=== PATIENT | male | born 1970 | race Caucasian/White ===

== ENCOUNTER 2019-01-29 17:02 | Inpatient (IN) ==
[2019-01-29] MEDS ORDERED: methylPREDNISolone 125 MG/2 ML VIAL IV STA (17:08)
[2019-01-29] MEDS ORDERED: ALBUT/IPRATROP 3MG/0.5MG NEB 3 ML VIAL NEB STA ×2 (17:08→18:26)
[2019-01-29 17:24] LABS: Basophils # (auto) 0.03 K/uL (0-0.2); Basophils % (auto) 0.3 %; Eosinophils # (auto) 0.31 K/uL (0-0.5); Eosinophils % (auto) 2.8 %; Hematocrit (blood only) 56.7 % (42-52); Hemoglobin 19.8 g/dL (14.0-18.0); Immature Granulocytes # (auto) 0.04 K/uL (0.00-0.02); Immature Granulocytes % (auto) 0.4 %; Lymphocytes # (auto) 1.06 K/uL (1.2-3.4); Lymphocytes % (auto) 9.5 %; Mean Corpuscular Volume 98.8 fL (80-100); Mean Platelet Volume 10.7 fL (7.4-10.4); Monocytes # (auto) 0.94 K/uL (0.11-0.59); Monocytes % (auto) 8.4 %; Neutrophils # (auto) 8.81 K/uL (1.4-6.5); Neutrophils % (auto) 78.6 %; Platelet Count 136 K/uL (130-400); RDW Coefficient of Variation 13.3 % (11.5-14.5); RDW Standard Deviation 47.6 fL (36.4-46.3); Red Blood Count 5.74 M/uL (4.7-6.1); White Blood Count 11.19 K/uL (4.8-10.8)
--- NOTE | 2019-01-29 17:24 | Emergency Department Note ---
Entered by Eulalia Amaya acting as a scribe for Jeanmarie Huizar DO History of Present Illness General Chief complaint: Chest Pain Stated complaint: SOB, CHEST PAIN Source: patient History of Present Illness Onset (ago): day(s) 1 Location: chest Pain Consistency: + intermittent Maximum Pain Intensity: 10 Relieved By: not by medication (Albuterol) Exacerbated By: + movement Associated symptoms: + chest pain The patient is a 48 year old male who presents to the ED with complaints of intermittent shortness of breath for 1 day now. The patients states that he is experiencing chest pain with movement. The patient denies any chest pain now in the ED. He admits that he has a history of COPD. The patient states that he takes breathing treatments. He claims that he uses an emergency inhaler, Albuterol, which he last used 13 hours ago. The patient claims that he does not believe the inhaler relieves his symptoms anymore. He reports that he has not noticed any recent swelling in his legs. The patient reports that he uses alcohol and tobacco products but denies any use of recreational drugs. The patient reports that he is allergic to Prednisone. He reports that he has no history of heart issues. The patient reports that he had a bowel reconstruction and ventricle hernia. The patient states that his doctor is Dr. Walker. Home Medications Home Medications Medication Instructions Recorded Confirmed Type albuterol sulfate [Ventolin HFA] 2 puff INHALATION Q4 PRN 01/29/19 01/29/19 History citalopram [Celexa] 40 mg PO DAILY 01/29/19 01/29/19 History fluticasone propion-salmeterol 1 puff INHALATION BID 01/29/19 01/29/19 History [Advair HFA] metoprolol succinate [Toprol XL] 50 mg PO DAILY 01/29/19 01/29/19 History trazodone 100 - 150 mg PO HS 01/29/19 01/29/19 History Allergies Allergy/AdvReac Type Severity Reaction Status Date / Time iodine Allergy Unknown Verified 01/29/19 17:47 mushroom Allergy SWELLING Verified 01/29/19 17:34 OF NECK shellfish derived Allergy REDNESS & Verified 01/29/19 17:47 SWELLING OF NECK Sulfa (Sulfonamide Allergy Unknown Verified 01/29/19 17:48 Antibiotics) prednisone AdvReac Unknown Verified 01/29/19 17:47 Past Med/Surg History Medical History Acute bronchitis (Acute) Elevated troponin (Acute) Chest pain (Acute) Acute exacerbation of chronic obstructive pulmonary disease (COPD) (Acute) Acute respiratory failure with hypoxia (Acute) Family History Other No significant family history Social History Preferred Language: Citizen Of [place] Communication Ability: Effective City Distribution Clerk Required: No Beliefs That Will Affect Care: None Current Living Situation: Alone Other Information That Helps Us Care for You: No Feels Safe at Home: Yes Safety Concerns: Feels Safe At This Time Smoking Status: Current every day smoker Tobacco Type: cigarettes Cigarettes Per Day: 40 Hx Alcohol Use: Yes Alcohol type: beer Hx Substance Use: No Review of Systems See HPI for pertinent positives & negatives. and A total of 10 systems reviewed and were otherwise negative Physical Exam Vital Signs Vital Signs - 24 hr 01/29/19 17:02 01/29/19 17:10 01/29/19 17:25 Temperature 36.6 C Temperature Source Oral Sepsis Recent Fever Within 48 Hours No Sepsis Action Taken by Nursing No Action Required Oxygen Flow Rate - Titration Pulse Oximetry Post Tiitration Pulse Rate 120 H 116 H Pulse Rate [Apical] 105 H Pulse Rate from SpO2 Sensor 116 H Respiratory Rate 26 H 27 H 20 Respiratory Effort / Characteristics Spontaneous Blood Pressure 171/119 H Blood Pressure [Right Arm] Blood Pressure Mean 136 Blood Pressure Mean [Right Arm] Pulse Oximetry 85 L 96 96 Oxygen Delivery Method Room Air Nasal Cannula Nasal Cannula Oxygen Flow Rate 2 3 01/29/19 17:28 01/29/19 17:30 01/29/19 17:45 Temperature Temperature Source Sepsis Recent Fever Within 48 Hours Sepsis Action Taken by Nursing Oxygen Flow Rate - Titration Pulse Oximetry Post Tiitration Pulse Rate 109 H 108 H Pulse Rate [Apical] 110 H Pulse Rate from SpO2 Sensor 108 H 107 H Respiratory Rate 18 26 H 23 Respiratory Effort / Characteristics Blood Pressure 157/113 H 160/135 H Blood Pressure [Right Arm] 183/115 H Blood Pressure Mean 127 143 Blood Pressure Mean [Right Arm] 137 Pulse Oximetry 96 96 95 Oxygen Delivery Method Nebulizer Nasal Cannula Nasal Cannula Oxygen Flow Rate 2 2 01/29/19 18:06 01/29/19 18:15 01/29/19 18:30 Temperature Temperature Source Sepsis Recent Fever Within 48 Hours Sepsis Action Taken by Nursing Oxygen Flow Rate - Titration 2 Pulse Oximetry Post Tiitration 94 Pulse Rate 108 H Pulse Rate [Apical] 110 H Pulse Rate from SpO2 Sensor 108 H Respiratory Rate 22 31 H Respiratory Effort / Characteristics Blood Pressure 158/109 H Blood Pressure [Right Arm] 172/111 H Blood Pressure Mean 125 Blood Pressure Mean [Right Arm] 131 Pulse Oximetry 94 94 86 L Oxygen Delivery Method Nasal Cannula Nasal Cannula Room Air Oxygen Flow Rate 2 2 01/29/19 18:31 01/29/19 18:32 01/29/19 18:45 Temperature Temperature Source Sepsis Recent Fever Within 48 Hours Sepsis Action Taken by Nursing Oxygen Flow Rate - Titration Pulse Oximetry Post Tiitration Pulse Rate 109 H 112 H 104 H Pulse Rate [Apical] 108 H Pulse Rate from SpO2 Sensor 110 H 112 H 103 H Respiratory Rate 19 26 H 23 Respiratory Effort / Characteristics Blood Pressure 195/110 H Blood Pressure [Right Arm] 195/110 H Blood Pressure Mean 138 Blood Pressure Mean [Right Arm] 138 Pulse Oximetry 89 L 91 96 Oxygen Delivery Method Nasal Cannula Oxygen Flow Rate 2 01/29/19 18:48 01/29/19 19:00 01/29/19 19:01 Temperature Temperature Source Sepsis Recent Fever Within 48 Hours Sepsis Action Taken by Nursing Oxygen Flow Rate - Titration Pulse Oximetry Post Tiitration Pulse Rate 103 H 99 H Pulse Rate [Apical] 100 H Pulse Rate from SpO2 Sensor 104 H 100 H Respiratory Rate 20 28 H 21 Respiratory Effort / Characteristics Spontaneous Blood Pressure 171/109 H Blood Pressure [Right Arm] Blood Pressure Mean 129 Blood Pressure Mean [Right Arm] Pulse Oximetry 95 92 93 Oxygen Delivery Method Nasal Cannula Oxygen Flow Rate 2 01/29/19 19:15 Temperature Temperature Source Sepsis Recent Fever Within 48 Hours Sepsis Action Taken by Nursing Oxygen Flow Rate - Titration Pulse Oximetry Post Tiitration Pulse Rate 111 H Pulse Rate [Apical] Pulse Rate from SpO2 Sensor 108 H Respiratory Rate 18 Respiratory Effort / Characteristics Blood Pressure Blood Pressure [Right Arm] Blood Pressure Mean Blood Pressure Mean [Right Arm] Pulse Oximetry 91 Oxygen Delivery Method Oxygen Flow Rate GENERAL: The patient is awake and alert. He is very anxious appearing and appears to be in significant distress. EYES: The right eye has postsurgical changes noted. The left eye has a pupil that is normal size and reactive to light. Extraocular muscles are intact. EARS, NOSE, MOUTH AND THROAT: The nose is without any evidence of any deformity. Mucous membranes are moist tongue is midline NECK: The neck is nontender and supple. RESPIRATORY: Shallow respirations were noted. There are diminished breath sounds noted throughout with expiratory wheezing in all lung boland. Significant conversational dyspnea was noted. CARDIOVASCULAR: Tachycardic rate with regular rhythm was noted. No definite murmur was noted. GASTROINTESTINAL: The abdomen is soft. Bowel sounds are present in all quadrants. Abdomen is nontender MUSCULOSKELETAL/EXTREMITIES: There is no evidence of gross deformity full range of motion is noted in the hips and shoulders SKIN: There is no obvious evidence of any rash. Skin was cool and diaphoretic. NEUROLOGIC: Patient is awake alert and oriented x3 strength is symmetric patellar reflexes are 2+ bilaterally Course 1708: Past medical records reviewed. The patient was evaluated in room B12. A complete history and physical exam was performed. 8: I reevaluated the patient at this time and he is resting comfortably. I discussed the test results and treatment plan. They verbally agree and understand. 1935: I discussed the patients case with Vishal Blackwood. He agreed to admit the patient for further management. Consultations Consultation #1: I discussed the patients case with Vishal Blackwood. He agreed to admit the patient for further management. Time: 19:35 Administered Medications Arformoterol Tartrate (Brovana Neb) 15 mcg INH BIDR SKY Stop: 02/28/19 22:02 Last Admin: 01/29/19 22:34 Dose: 15 mcg Documented by: [id number] Budesonide (Pulmicort Respules) 0.5 mg NEB BIDR SKY Stop: 02/28/19 22:02 Last Admin: 01/29/19 22:34 Dose: 0.5 mg Documented by: [id number] Ioversol (Optiray 320 125ml) 119 ml IV ONCE PRN PRN Reason: Interaction Checking Stop: 02/02/19 17:57 Last Admin: 01/29/19 17:59 Dose: 119 ml Documented by: [id number] Discontinued Medications Albuterol (Duoneb) 3 ml NEB NOW STA Stop: 01/29/19 17:09 Last Admin: 01/29/19 17:25 Dose: 3 ml Documented by: [id number] Albuterol (Duoneb) 3 ml NEB NOW STA Stop: 01/29/19 18:27 Last Admin: 01/29/19 18:46 Dose: 3 ml Documented by: [id number] Aspirin (Aspirin) Confirm Administered Dose 324 mg .ROUTE .STK-MED ONE Stop: 01/29/19 19:11 Last Admin: 01/29/19 19:14 Dose: 324 mg Documented by: [id number] Sodium Chloride (Nss 1000ml) 1,000 mls @ 999 mls/hr IV .Q1H1M ONE Stop: 01/29/19 18:33 Last Infusion: 01/29/19 19:14 Dose: 0 mls/hr Documented by: [id number] Admin: 01/29/19 17:40 Dose: 999 mls/hr Documented by: [id number] Methylprednisolone (Solumedrol) 125 mg IV NOW STA Stop: 01/29/19 17:09 Last Admin: 01/29/19 17:21 Dose: 125 mg Documented by: [id number] Medical Decision Making Differential Diagnosis Differential diagnosis: Etiologies such as shingles, musculoskeletal pain, pericarditis, myocarditis, cardiac ischemia, pericardial tamponade, pneumonia, pneumothorax, pleural effusion, hemothorax, pleurisy, aortic pathology, pulmonary embolism, intra- abdominal process, as well as others were considered. Medical Records Attestation: I reviewed the patient's medical records. Home Medications Current Medication List: was personally reviewed by me Laboratory Data Attestation: I reviewed the patient's lab results. Result diagrams: 01/29/19 17:10 01/29/19 17:10 Lab Results 01/29/19 01/29/19 01/29/19 Range/Units 17:10 17:10 17:16 WBC 11.19 H (4.8-10.8) K/uL RBC 5.74 (4.7-6.1) M/uL Hgb 19.8 H (14.0-18.0) g/dL POC Hgb (14.0-18.0) g/dl Hct 56.7 H (42-52) % POC Hct (42-52) % MCV 98.8 (80-100) fL MCH 34.5 H (25-34) pg MCHC 34.9 (32-36) g/dL RDW Std Deviation 47.6 H (36.4-46.3) fL RDW Coeff of Nolberto 13.3 (11.5-14.5) % Plt Count 136 (130-400) K/uL MPV 10.7 H (7.4-10.4) fL Immature Gran % (Auto) 0.4 % Neut % (Auto) 78.6 % Lymph % (Auto) 9.5 % Gilliam % (Auto) 8.4 % Eos % (Auto) 2.8 % Baso % (Auto) 0.3 % Immature Gran # (Auto) 0.04 H (0.00-0.02) K/uL Neut # (Auto) 8.81 H (1.4-6.5) K/uL Lymph # (Auto) 1.06 L (1.2-3.4) K/uL Gilliam # (Auto) 0.94 H (0.11-0.59) K/uL Eos # (Auto) 0.31 (0-0.5) K/uL Baso # (Auto) 0.03 (0-0.2) K/uL ABG pH (7.35-7.45) ABG pCO2 (35-46) mmHg ABG pO2 (80-95) mm/Hg ABG HCO3 (19-24) mmol/L ABG O2 Saturation (90-95) % ABG Base Excess (-9-1.8) mEq/L Yo Test (Pos) Barometric Pressure mm/Hg Oxygen Given POC Sodium (135-144) mEq/L Sodium 140 (136-145) mmol/L POC Potassium (3.3-5.0) mEq/L Potassium 4.4 (3.5-5.1) mmol/L POC Chloride (101-112) mEq/L Chloride 102 (98-107) mmol/L Carbon Dioxide 35 H (21-32) mmol/L POC Total CO2 (24-31) mEq/l Anion Gap 2.0 L (3-11) POC Anion Gap (16-25) mmol/L POC BUN (7-18) mg/dl BUN 8 (7-18) mg/dl Creatinine 0.82 (0.6-1.4) mg/dl POC Creatinine (0.6-1.3) mg/dl Est Cr Clr Drug Dosing Not Reportable Est GFR ( Amer) 121.2 Est GFR (Non-Af Amer) 104.6 BUN/Creatinine Ratio 10.0 (10-20) Glucose 146 H (70-99) mg/dl POC Glucose (other) (70-99) mg/dl Calcium 9.2 (8.5-10.1) mg/dl POC Ioniz Calcium Owen (1.12-1.32) mmol/l Total Bilirubin 0.5 (0.2-1) mg/dl AST 27 (15-37) U/L ALT 31 (12-78) U/L Alkaline Phosphatase 97 (45-117) U/L POC Troponin I 0.08 H (0-0.045) ng/ml Total Protein 7.8 (6.4-8.2) gm/dl Albumin 3.6 (3.4-5.0) gm/dl Globulin 4.2 H (2.5-4.0) gm/dl Albumin/Globulin Ratio 0.9 (0.9-2) Lipase 197 (73-393) U/L 01/29/19 01/29/19 Range/Units 17:17 19:18 WBC (4.8-10.8) K/uL RBC (4.7-6.1) M/uL Hgb (14.0-18.0) g/dL POC Hgb 20.4 H* (14.0-18.0) g/dl Hct (42-52) % POC Hct 60 H (42-52) % MCV (80-100) fL MCH (25-34) pg MCHC (32-36) g/dL RDW Std Deviation (36.4-46.3) fL RDW Coeff of Nolberto (11.5-14.5) % Plt Count (130-400) K/uL MPV (7.4-10.4) fL Immature Gran % (Auto) % Neut % (Auto) % Lymph % (Auto) % Gilliam % (Auto) % Eos % (Auto) % Baso % (Auto) % Immature Gran # (Auto) (0.00-0.02) K/uL Neut # (Auto) (1.4-6.5) K/uL Lymph # (Auto) (1.2-3.4) K/uL Gilliam # (Auto) (0.11-0.59) K/uL Eos # (Auto) (0-0.5) K/uL Baso # (Auto) (0-0.2) K/uL ABG pH 7.36 (7.35-7.45) ABG pCO2 55 H (35-46) mmHg ABG pO2 62 L (80-95) mm/Hg ABG HCO3 30 H (19-24) mmol/L ABG O2 Saturation 91.4 (90-95) % ABG Base Excess 3.1 H (-9-1.8) mEq/L Yo Test POS (Pos) Barometric Pressure 730.2 mm/Hg Oxygen Given 2L O2 POC Sodium 140 (135-144) mEq/L Sodium (136-145) mmol/L POC Potassium 4.5 (3.3-5.0) mEq/L Potassium (3.5-5.1) mmol/L POC Chloride 97 L (101-112) mEq/L Chloride (98-107) mmol/L Carbon Dioxide (21-32) mmol/L POC Total CO2 34 H (24-31) mEq/l Anion Gap (3-11) POC Anion Gap 16.0 (16-25) mmol/L POC BUN 7 (7-18) mg/dl BUN (7-18) mg/dl Creatinine (0.6-1.4) mg/dl POC Creatinine 0.8 (0.6-1.3) mg/dl Est Cr Clr Drug Dosing Est GFR ( Amer) Est GFR (Non-Af Amer) BUN/Creatinine Ratio (10-20) Glucose (70-99) mg/dl POC Glucose (other) 151 H (70-99) mg/dl Calcium (8.5-10.1) mg/dl POC Ioniz Calcium Owen 1.17 (1.12-1.32) mmol/l Total Bilirubin (0.2-1) mg/dl AST (15-37) U/L ALT (12-78) U/L Alkaline Phosphatase (45-117) U/L POC Troponin I (0-0.045) ng/ml Total Protein (6.4-8.2) gm/dl Albumin (3.4-5.0) gm/dl Globulin (2.5-4.0) gm/dl Albumin/Globulin Ratio (0.9-2) Lipase (73-393) U/L Imaging Data Radiologist's Impression: Radiology results as stated below per my review and the radiologist's interpretation: XR chest 1V portable HISTORY: Atypical Chest Pain COMPARISON: None. FINDINGS: The lungs are clear. Cardiac silhouette is normal in size. No pleural effusions. No pneumothorax. IMPRESSION: No acute process. Electronically signed by: Suraj Lazo M.D. 01/29/2019 5:24 PM CHEST CTA for PULMONARY ARTERIES CT DOSE: 795.62 mGy.cm HISTORY: Shortness of breath. TECHNIQUE: Multiaxial CT images of the chest were performed following the intravenous administration of contrast to evaluate the pulmonary arteries. Maximal intensity projection images were also obtained. A dose lowering technique was utilized adhering to the principles of ALARA. COMPARISON STUDY: None. FINDINGS: Normal caliber thoracic aorta with no evidence for dissection. No pleural or pericardial effusions. The heart is normal in size. Mild respiratory motion artifact within the right lung resulting in suboptimal evaluation of a few of the subsegmental pulmonary arteries. However, no definite filling defects within the pulmonary arteries to suggest an embolus. The visualized liver, spleen, and adrenal glands are unremarkable. Normal esophagus. No mediastinal lymphadenopathy. A few mildly enlarged bilateral hilar lymph nodes. Dominant right hilar lymph node measures 12 mm in short axis diameter. Dominant left hilar lymph node measures 1 cm in short axis diameter. No fractures within the visualized osseous structures. No pneumothorax. The central airways are patent. No focal lung consolidations to suggest pneumonia. Mild central bronchial wall thickening. IMPRESSION: 1. No definite evidence for pulmonary embolus. 2. Mild central bronchial wall thickening. 3. No focal lung consolidations to suggest pneumonia. 4. Mild bilateral hilar lymphadenopathy. This is of uncertain clinical significance. A [address] follow-up can be performed to ensure stability/resolution. Electronically signed by: Suraj Lazo M.D. 01/29/2019 6:17 PM ECG Data Attestation: I personally reviewed and interpreted this ECG as follows: Indication: SOB/dyspnea Rate (beats per minute): 116 Rhythm: sinus tachycardia Findings: no PAC, no PVC, no ST depression, no ST elevation, no acute ischemic change and no ectopy Blood Pressure Blood Pressure Findings: Elevated blood pressure Blood Pressure Disposition: further management by hospitalist BRIAN Wong The patient is a 48-year-old male who presented to the emergency department with respiratory distress and chest pain. The patient was very diaphoretic. He was hypoxic. The patient was placed on submental oxygen and given bronchodilator therapy. His condition slowly improved. He was treated with IV fluids and IV steroids. There is significant concern that the patient may be suffering from a pulmonary embolism given his symptoms. I discussed the patient's laboratory and radiographic studies with him. He was reevaluated multiple times. Ultimately he was found to have no signs of venous thromboembolic disease on CT. I discussed the patient's condition with the on-call [facility] hospitalist. They have agreed to evaluate the patient in the emergency department for further management and disposition. Impression & Plan COPD (chronic obstructive pulmonary disease), Respiratory distress, Hypoxia Critical Care Time Critical Care Time: Yes Total Critical Care Time: 45 I have personally spent greater than 45 minutes of critical care time in the direct management of this patient. This includes bedside care, interpretation of diagnostic studies, and testing, discussion with consultants, patient, and family members, and other required patient management activities. This 45 minutes is in excess of all separately billable procedures. Discharge Plan Visit Data *Final* Discharge Date/Time: 01/29/19 22:01 Chief Complaint: Chest Pain Stated Complaint: SOB, CHEST PAIN ED Provider: Jeanmarie Huizar Discharge Problem: COPD (chronic obstructive pulmonary disease), Respiratory distress, Hypoxia Patient Disposition: Admitted As Inpatient Discharge Instructions Interventions: ED Discharge Assessment Last Done: 01/29/19 22:01 Discharge Problem: COPD (chronic obstructive pulmonary disease) Qualifiers: COPD type: unspecified COPD Qualified Code(s): J44.9 - Chronic obstructive pulmonary disease, unspecified The scribe's documentation has been prepared under my direction and personally reviewed by me in its entirety. I confirm that the note above accurately reflects all work, treatment, procedures, and medical decision making performed by me.
--- NOTE | 2019-01-29 17:25 | XRay Report ---
XR chest 1V portable HISTORY: Atypical Chest Pain COMPARISON: None. FINDINGS: The lungs are clear. Cardiac silhouette is normal in size. No pleural effusions. No pneumot horax. IMPRESSION: No acute process. Electronically signed by: Suraj Lazo M.D. 01/29/2019 5:24 PM
[2019-01-29] MEDS ORDERED: SODIUM CHLORIDE 0.9% 1000ML 1,000 ML IV ONE (17:33)
[2019-01-29 17:34] LABS: iSTAT Creatinine 0.8 mg/dl (0.6-1.3); iSTAT Hemoglobin 20.4 g/dl (14.0-18.0); iSTAT Ionized Calcium 1.17 mmol/l (1.12-1.32); iSTAT Potassium 4.5 mEq/L (3.3-5.0)
[2019-01-29 17:40] LABS: Alanine Aminotransferase 31 U/L (12-78); Albumin Level 3.6 gm/dl (3.4-5.0); Aspartate Aminotransferase 27 U/L (15-37); Blood Urea Nitrogen 8 mg/dl (7-18); Calcium 9.2 mg/dl (8.5-10.1); Carbon Dioxide 35 mmol/L (21-32); Chloride 102 mmol/L (98-107); Est GFR (African American) 121.2; Est GFR (Non-African American) 104.6; Glucose 146 mg/dl (70-99); Potassium 4.4 mmol/L (3.5-5.1); Sodium 140 mmol/L (136-145)
[2019-01-29 17:43] LABS: Albumin Globulin Ratio 0.9 (0.9-2); Alkaline Phosphatase 97 U/L (45-117); Bilirubin,Total 0.5 mg/dl (0.2-1); Globulin 4.2 gm/dl (2.5-4.0); Total Protein 7.8 gm/dl (6.4-8.2)
[2019-01-29 17:56] LABS: Mean Corpuscular Hgb Conc 34.9 g/dL (32-36)
[2019-01-29] MEDS ORDERED: OPTIRAY 320 125ml IV PRN (17:58)
--- NOTE | 2019-01-29 18:18 | CT Scan Report ---
CHEST CTA for PULMONARY ARTERIES CT DOSE: 795.62 mGy.cm HISTORY: Shortness of breath. TECHNIQUE: Multiaxial CT images of the chest were performed following the intravenous administration of contrast to evaluate the pulmonary arteries. Maximal intensity projection images were also obtaine d. A dose lowering technique was utilized adhering to the principles of ALARA. COMPARISON STUDY: None. FINDINGS: Normal caliber thoracic aorta with no evidence for dissection. No pleural or pericardial ef fusions. The heart is normal in size. Mild respiratory motion artifact within the right lung resultin g in suboptimal evaluation of a few of the subsegmental pulmonary arteries. However, no definite fill ing defects within the pulmonary arteries to suggest an embolus. The visualized liver, spleen, and ad renal glands are unremarkable. Normal esophagus. No mediastinal lymphadenopathy. A few mildly enlarge d bilateral hilar lymph nodes. Dominant right hilar lymph node measures 12 mm in short axis diameter. Dominant left hilar lymph node measures 1 cm in short axis diameter. No fractures within the visuali zed osseous structures. No pneumothorax. The central airways are patent. No focal lung consolidations to suggest pneumonia. Mild central bronchial wall thickening. IMPRESSION: 1. No definite evidence for pulmonary embolus. 2. Mild central bronchial wall thickening. 3. No focal lung consolidations to suggest pneumonia. 4. Mild bilateral hilar lymphadenopathy. This is of uncertain clinical significance. A 3 to [address] follow-up can be performed to ensure stability/resolution. Electronically signed by: Suraj Lazo M.D. 01/29/2019 6:17 PM
[2019-01-29] MEDS ORDERED: ASPIRIN 81 MG CHEW PO STA (19:07)
--- NOTE | 2019-01-29 19:07 | History & Physical Report ---
Date of Service January 29, 2019 Assessment & Plan (1) Acute respiratory failure with hypoxia: Supplemental oxygen to maintain saturation greater than 90%. Treat underlying COPD exacerbation Present on Admission?: Yes (2) Acute exacerbation of chronic obstructive pulmonary disease (COPD): Administer intravenous steroids. Nebulizers consisting of arformoterol and budesonide. Treat bronchitis Present on Admission?: Yes (3) Chest pain: Telemetry. Serial troponins and EKGs. Cardiac echo. Aspirin therapy Present on Admission?: Yes (4) Elevated troponin: Serial troponins. Telemetry. Serial EKGs. Cardiac echo Present on Admission?: Yes (5) Acute bronchitis: Intravenous Levaquin, day 1. Obtain sputum culture if sputum is produced Present on Admission?: Yes (6) Hyperglycemia: Mild. Check hemoglobin A1c. Sliding scale insulin coverage as needed Present on Admission?: Yes (7) DVT prophylaxis: Lovenox subcu History of Present Illness Chief Complaint: Shortness of breath, coughing, wheezing, chest pain Primary Care Provider: Ari Ferrera MD 48-year-old obese smoker with several days of occasionally productive cough, wheezing, shortness of breath, intermittent chest pain with exertion. No previous cardiac history. He is an active smoker. He presents with acute respiratory distress and hypoxia. Chest x-ray negative for pneumonia. Chest CTA negative for PE. He does have symptoms of acute bronchitis. EKG reveals no acute changes. Troponin is minimally elevated and will be trended. 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 He has received nebulizer treatments and intravenous Solu-Medrol in the ED. ABG is pending. He is admitted for further evaluation and treatment. He denies any hemoptysis, palpitations, syncope. Allergies Allergy/AdvReac Type Severity Reaction Status Date / Time iodine Allergy Unknown Verified 01/29/19 17:47 mushroom Allergy SWELLING Verified 01/29/19 17:34 OF NECK shellfish derived Allergy REDNESS & Verified 01/29/19 17:47 SWELLING OF NECK Sulfa (Sulfonamide Allergy Unknown Verified 01/29/19 17:48 Antibiotics) prednisone AdvReac Unknown Verified 01/29/19 17:47 Home Medications Home Medications Medication Instructions Recorded Confirmed Type albuterol sulfate [Ventolin HFA] 2 puff INHALATION Q4 PRN 01/29/19 01/29/19 History citalopram [Celexa] 40 mg PO DAILY 01/29/19 01/29/19 History fluticasone propion-salmeterol 1 puff INHALATION BID 01/29/19 01/29/19 History [Advair HFA] metoprolol succinate [Toprol XL] 50 mg PO DAILY 01/29/19 01/29/19 History trazodone 100 - 150 mg PO HS 01/29/19 01/29/19 History Past Med/Surg History Medical History Acute bronchitis (Acute) Elevated troponin (Acute) Chest pain (Acute) Acute exacerbation of chronic obstructive pulmonary disease (COPD) (Acute) Acute respiratory failure with hypoxia (Acute) Social History Feels Safe at Home: Yes Smoking Status: Current every day smoker Review of Systems Review of Systems: Constitutional-no fever or chills ENT-no blurred vision, no double vision, no epistaxis, no sore throat Respiratory-occasionally productive cough, dyspnea, wheezing. No hemoptysis Cardiac-no palpitations, no syncope. Mid chest discomfort with exertion GI-no nausea, vomiting, diarrhea, melena, hematochezia -no urinary retention, no urinary incontinence, no dysuria, no hematuria Musculoskeletal-no joint pain, no muscle tenderness Skin-no bruising, no rashes, no pruritus Neuro-no isolated weakness, no paresthesia, no weakness Psych-no depression, no anxiety Physical Exam Physical Exam: General-alert and oriented x3, no fevers, no chills HEENT-head atraumatic and normocephalic, TMs intact bilaterally. 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 Diffuse bilateral expiratory wheezes. Faint midline rhonchi. No inspiratory rales. No dullness to percussion Cardiac-regular rate and rhythm, normal S1 and S2, no murmurs Abdomen-normal bowel sounds, nontender, no hepatosplenomegaly Extremities-no cyanosis, clubbing, or edema Neuro-cranial nerves II through XII intact, motor and sensory function within normal limits, strength symmetrical , no focal deficits Psych-normal affect, normal mood Results & Data Vital Signs (Past 12 Hours) Vital Signs Temp Pulse Pulse Resp BP BP Pulse Ox 01/29/19 18:48 100 H 20 95 01/29/19 18:32 108 H 20 195/110 H 94 01/29/19 18:30 86 L 01/29/19 18:15 108 H 31 H 158/109 H 94 01/29/19 18:06 110 H 22 172/111 H 94 01/29/19 17:45 108 H 23 160/135 H 95 01/29/19 17:30 109 H 26 H 157/113 H 96 01/29/19 17:28 110 H 18 183/115 H 96 01/29/19 17:25 105 H 20 96 01/29/19 17:10 116 H 27 H 171/119 H 96 01/29/19 17:02 36.6 C 120 H 26 H 85 L Laboratory Results 01/29/19 17:10 01/29/19 17:10 PG Care Time/CCT Total # of Minutes Spent Total Time Spent with Patient: Total time spent is greater than 50% in coord ination of care (as documented) at patient's floor/unit and/or counseling patient:
[2019-01-29] MEDS ORDERED: ASPIRIN CHEW 324 MG ONE (19:10)
[2019-01-29 19:34] LABS: Base Excess ABG 3.1 mEq/L (-9-1.8); HCO3 ABG 30 mmol/L (19-24); Oxygen Saturation ABG 91.4 % (90-95); PCO2 ABG 55 mmHg (35-46); PO2 ABG 62 mm/Hg (80-95); pH ABG 7.36 (7.35-7.45)
[2019-01-29 19:36] LABS: Allen Test POS (Pos)
[2019-01-29] MEDS ORDERED: ACETAMINOPHEN 325 MG TAB PO PRN (22:03)
[2019-01-29] MEDS ORDERED: ONDANSETRON INJ 2 MG/ML 2 ML VIAL IV PRN (22:03)
[2019-01-29] MEDS ORDERED: ALUMINUM/MAGNESIUM SUSP 30 ML UDC PO PRN (22:03)
[2019-01-29] MEDS ORDERED: DEXTROSE 50% 50 ML SYRINGE IV PRN (22:15)
[2019-01-29] MEDS ORDERED: GLUCAGON FOR INJ 1 MG VIAL SQ PRN (22:15)
[2019-01-29] MEDS ORDERED: GLUCOSE 40% GEL 15 GM TUBE PO PRN (22:15)
[2019-01-29] MEDS ORDERED: CARBOHYDRATES FOR HYPOGLYCEMIA PO PRN (22:15)
[2019-01-29] MEDS ORDERED: GLUCOSE 10 TABS/TUBE PO PRN (22:15)
[2019-01-29] MEDS: ARFORMOTEROL TART 15MCG/2ML VIAL INH SCH (22:34)
[2019-01-29] MEDS: BUDESONIDE 0.5 MG/2 ML VIAL (PULMICORT) NEB SCH (22:34)
[2019-01-30] MEDS: LEVOFLOXACIN/D5W 750 MG/150 ML BAG IV SCH ×2 (01:58→22:20)
[2019-01-30] MEDS: methylPREDNISolone 40 MG in SYRINGE 0 ML IV SCH ×4 (01:59→23:31)
[2019-01-30] MEDS: TRAZODONE HCL 100 MG TAB PO SCH ×2 (01:59→20:35)
[2019-01-30 06:02] LABS: Estimated Average Glucose 126 mg/dl
[2019-01-30] MEDS: ARFORMOTEROL TART 15MCG/2ML VIAL INH SCH ×2 (07:16→19:33)
[2019-01-30] MEDS: BUDESONIDE 0.5 MG/2 ML VIAL (PULMICORT) NEB SCH ×2 (07:16→19:33)
[2019-01-30] MEDS ORDERED: PNEUMOCOCCAL POLYSACCHARIDES 25 MCG/0.5 ML VIAL/SYR IM ONE (08:00)
[2019-01-30] MEDS ORDERED: PNEUMOCOCCAL ADMINISTRATION CHARGE ONE (08:00)
[2019-01-30] MEDS: CITALOPRAM 40 MG TAB PO SCH (08:36)
[2019-01-30] MEDS: ASPIRIN 81 MG ECTAB PO SCH (08:36)
[2019-01-30] MEDS: METOPROLOL SUCC 50MG EXT REL TAB PO SCH (08:36)
[2019-01-30] MEDS: INSULIN ASPART 100 UNITS/ML 3 ML PEN SC SCH ×5 (08:39→21:02)
--- NOTE | 2019-01-30 12:20 | Hospitalist Progress Note ---
Date of Service January 30, 2019 Assessment & Plan (1) Acute respiratory failure with hypoxia: Supplemental oxygen to maintain saturation greater than 90%. Treat underlying COPD exacerbation still on oxygen at 2L will order 2 step for tomorrow to ensure he does not need Oxygen on discharge (2) Acute exacerbation of chronic obstructive pulmonary disease (COPD): continue Solu Medrol and Levaquin, responding well continue Nebulizers consisting of arformoterol and budesonide plan to d/c on Levaquin and Prednisone (3) Chest pain: resolved today troponin is 0.07 and 0.06, not alarming echo is pending will transfer to medical floor as there are no signs of ACS (4) Elevated troponin: see above (5) Acute bronchitis: continue Solu Medrol and Levaquin (6) Hyperglycemia: HbA1c is 6.0 so he is pre-diabetic (7) DVT prophylaxis: Lovenox subcu Plan: likely d/c to home tomorrow on Prednisone and Levaquin, get two step tomorrow Subjective patient resting comfortably, no distress, taking deep breaths minimal cough says that he feels much better, the nebulizers are helping a lot no chest pain, no abdominal symptoms still on oxygen at 2L reviewed labs and imaging since admission yesterday discussed with RN, will transfer patient eating well this morning Review of Systems Review of Systems: All systems reviewed & are unremarkable except as noted in HPI & below Constitutional: + fatigue; no fever, no chills, no sweats and no weakness Respiratory: + cough and + dyspnea on exertion; no dyspnea and no sputum production Cardiovascular: no chest pain, no palpitations and no edema Gastrointestinal: no abdominal pain, no nausea, no vomiting, no constipation and no diarrhea/loose stools Physical Exam Constitutional: WD/WN, vitals as above Eyes: PERRL, conjunctivae normal, anicteric sclerae ENMT: external ear and nose normal, oropharynx normal Neck: trachea midline, no thyromegaly Respiratory: normal respiratory effort; no respiratory distress Auscultation: + wheezes (faint, bilaterally); no crackles and no rales Cardiovascular: RRR, no murmur, no edema Gastrointestinal (Abdomen): normal bowel sounds, soft, nontender, no hepatosplenomegaly Musculoskeletal: no cyanosis or clubbing, extremities motor strength 5/5 Skin: no rashes, warm and dry Neurologic: patellar DTR's 2+ bilat, sensation intact and PERRL, EOMI, accommodation nl, no face palsy, no dysarthria Psychiatric: A+Ox3, euthymic affect Lymphatic: no cervical or axillary lymphadenopathy Results & Data Vital Signs (Past 12 Hours) Vital Signs Temp Pulse Pulse Resp BP Pulse Ox 01/30/19 12:06 36.8 C 86 18 167/86 H 89 L 01/30/19 08:03 36.8 C 75 18 146/73 H 96 01/30/19 08:00 92 H 01/30/19 07:18 75 18 96 01/30/19 04:22 36.6 C 69 19 148/69 H 95 Laboratory Results Laboratory Results - last 24 hr 01/29/19 01/29/19 01/29/19 17:10 17:10 17:10 WBC 11.19 H RBC 5.74 Hgb 19.8 H POC Hgb Hct 56.7 H POC Hct MCV 98.8 MCH 34.5 H MCHC 34.9 RDW Std Deviation 47.6 H RDW Coeff of Nolberto 13.3 Plt Count 136 MPV 10.7 H Immature Gran % (Auto) 0.4 Neut % (Auto) 78.6 Lymph % (Auto) 9.5 Edmonson % (Auto) 8.4 Eos % (Auto) 2.8 Baso % (Auto) 0.3 Immature Gran # (Auto) 0.04 H Neut # (Auto) 8.81 H Lymph # (Auto) 1.06 L Edmonson # (Auto) 0.94 H Eos # (Auto) 0.31 Baso # (Auto) 0.03 ABG pH ABG pCO2 ABG pO2 ABG HCO3 ABG O2 Saturation ABG Base Excess Yo Test Barometric Pressure Oxygen Given POC Sodium Sodium 140 POC Potassium Potassium 4.4 POC Chloride Chloride 102 Carbon Dioxide 35 H POC Total CO2 Anion Gap 2.0 L POC Anion Gap POC BUN BUN 8 Creatinine 0.82 POC Creatinine Est Cr Clr Drug Dosing Not Reportable Est GFR ( Amer) 121.2 Est GFR (Non-Af Amer) 104.6 BUN/Creatinine Ratio 10.0 Glucose 146 H POC Glucose POC Glucose (other) Estimat Average Glucose 126 Hemoglobin A1c 6.0 H Calcium 9.2 POC Ioniz Calcium Owen Total Bilirubin 0.5 AST 27 ALT 31 Alkaline Phosphatase 97 POC Troponin I Troponin I Total Protein 7.8 Albumin 3.6 Globulin 4.2 H Albumin/Globulin Ratio 0.9 Lipase 197 01/29/19 01/29/19 01/29/19 17:16 17:17 19:18 WBC RBC Hgb POC Hgb 20.4 H* Hct POC Hct 60 H MCV MCH MCHC RDW Std Deviation RDW Coeff of Nolberto Plt Count MPV Immature Gran % (Auto) Neut % (Auto) Lymph % (Auto) [place]monson % (Auto) Eos % (Auto) Baso % (Auto) Immature Gran # (Auto) Neut # (Auto) Lymph # (Auto) Edmonson # (Auto) Eos # (Auto) Baso # (Auto) ABG pH 7.36 ABG pCO2 55 H ABG pO2 62 L ABG HCO3 30 H ABG O2 Saturation 91.4 ABG Base Excess 3.1 H Yo Test POS Barometric Pressure 730.2 Oxygen Given 2L O2 POC Sodium 140 Sodium POC Potassium 4.5 Potassium POC Chloride 97 L Chloride Carbon Dioxide POC Total CO2 34 H Anion Gap POC Anion Gap 16.0 POC BUN 7 BUN Creatinine POC Creatinine 0.8 Est Cr Clr Drug Dosing Est GFR ( Amer) Est GFR (Non-Af Amer) BUN/Creatinine Ratio Glucose POC Glucose POC Glucose (other) 151 H Estimat Average Glucose Hemoglobin A1c Calcium POC Ioniz Calcium Owen 1.17 Total Bilirubin AST ALT Alkaline Phosphatase POC Troponin I 0.08 H Troponin I Total Protein Albumin Globulin Albumin/Globulin Ratio Lipase 01/29/19 01/29/19 01/30/19 22:49 23:58 06:36 WBC RBC Hgb POC Hgb Hct POC Hct MCV MCH MCHC RDW Std Deviation RDW Coeff of Nolberto Plt Count MPV Immature Gran % (Auto) Neut % (Auto) Lymph % (Auto) Edmonson % (Auto) Eos % (Auto) Baso % (Auto) Immature Gran # (Auto) Neut # (Auto) Lymph # (Auto) Edmonson # (Auto) Eos # (Auto) Baso # (Auto) ABG pH ABG pCO2 ABG pO2 ABG HCO3 ABG O2 Saturation ABG Base Excess Yo Test Barometric Pressure Oxygen Given POC Sodium Sodium POC Potassium Potassium POC Chloride Chloride Carbon Dioxide POC Total CO2 Anion Gap POC Anion Gap POC BUN BUN Creatinine POC Creatinine Est Cr Clr Drug Dosing Est GFR ( Amer) Est GFR (Non-Af Amer) BUN/Creatinine Ratio Glucose POC Glucose 117 H POC Glucose (other) Estimat Average Glucose Hemoglobin A1c Calcium POC Ioniz Calcium Owen Total Bilirubin AST ALT Alkaline Phosphatase POC Troponin I Troponin I 0.070 H* 0.062 H* Total Protein Albumin Globulin Albumin/Globulin Ratio Lipase 01/30/19 07:15 WBC RBC Hgb POC Hgb Hct POC Hct MCV MCH MCHC RDW Std Deviation RDW Coeff of Nolberto Plt Count MPV Immature Gran % (Auto) Neut % (Auto) Lymph % (Auto) [place] % (Auto) Eos % (Auto) Baso % (Auto) Immature Gran # (Auto) Neut # (Auto) Lymph # (Auto) [place] # (Auto) Eos # (Auto) Baso # (Auto) ABG pH ABG pCO2 ABG pO2 ABG HCO3 ABG O2 Saturation ABG Base Excess Yo Test Barometric Pressure Oxygen Given POC Sodium Sodium POC Potassium Potassium POC Chloride Chloride Carbon Dioxide POC Total CO2 Anion Gap POC Anion Gap POC BUN BUN Creatinine POC Creatinine Est Cr Clr Drug Dosing Est GFR ( Amer) Est GFR (Non-Af Amer) BUN/Creatinine Ratio Glucose POC Glucose 125 H POC Glucose (other) Estimat Average Glucose Hemoglobin A1c Calcium POC Ioniz Calcium Owen Total Bilirubin AST ALT Alkaline Phosphatase POC Troponin I Troponin I Total Protein Albumin Globulin Albumin/Globulin Ratio Lipase Medications Administered Current Inpatient Medications Acetaminophen (Tylenol) 650 mg PO Q4H PRN PRN Reason: Pain or Fever Stop: 02/28/19 22:02 Al Hydrox/Mg Hydrox/Simethicone (Maalox) 15 ml PO Q4H PRN PRN Reason: Dyspepsia Stop: 02/28/19 22:02 Arformoterol Tartrate (Brovana Neb) 15 mcg INH BIDR [facility] Stop: 02/28/19 22:02 Last Admin: 01/30/19 07:16 Dose: 15 mcg Documented by: Aspirin (Ecotrin Ectab) 81 mg PO QAM [facility] Stop: 03/01/19 08:59 Last Admin: 01/30/19 08:36 Dose: 81 mg Documented by: Budesonide (Pulmicort Respules) 0.5 mg NEB BIDR [facility] Stop: 02/28/19 22:02 Last Admin: 01/30/19 07:16 Dose: 0.5 mg Documented by: Citalopram Hydrobromide (Celexa) 40 mg PO DAILY [facility] Stop: 03/01/19 08:59 Last Admin: 01/30/19 08:36 Dose: 40 mg Documented by: Dextrose (Dextrose 50%) 25 - 50 ml IV UD PRN; Protocol PRN Reason: Hypoglycemia Protocol Stop: 02/28/19 22:14 Glucagon (Glucagen) 1 mg SQ UD PRN; Protocol PRN Reason: Hypoglycemia Protocol Stop: 02/28/19 22:14 Glucose (Glucose 40%) 15 - 30 gm PO UD PRN; Protocol PRN Reason: Hypoglycemia Protocol Stop: 02/28/19 22:14 Glucose (Dex4 Glucose) 4 - 8 tabs PO UD PRN; Protocol PRN Reason: Hypoglycemia Protocol Stop: 02/28/19 22:14 Levofloxacin/Dextrose (Levaquin/D5w) 750 mg in 150 mls @ 100 mls/hr IV Q24H [facility] Stop: 02/05/19 22:59 Last Infusion: 01/30/19 03:30 Dose: Infused Documented by: Methylprednisolone 40 mg/ (Syringe) 0.64 mls @ 1.5 mls/min IV Q8H [facility] Stop: 03/01/19 00:00 Last Admin: 01/30/19 08:36 Dose: 1.5 mls/min Documented by: Insulin Aspart (Novolog Flexpen) 0 units SC ACHS [facility] Stop: 02/28/19 22:02 Last Admin: 01/30/19 08:39 Dose: 3 units Documented by: Ioversol (Optiray 320 125ml) 119 ml IV ONCE PRN PRN Reason: Interaction Checking Stop: 02/02/19 17:57 Last Admin: 01/29/19 17:59 Dose: 119 ml Documented by: Metoprolol Succinate (Toprol Xl) 50 mg PO DAILY [facility] Stop: 03/01/19 08:59 Last Admin: 01/30/19 08:36 Dose: 50 mg Documented by: Miscellaneous (Carbohydrates For Hypoglycemia) 15 - 30 gm PO UD PRN PRN Reason: Hypoglycemia Treatment Stop: 02/28/19 22:14 Ondansetron HCl (Zofran) 4 mg IV Q6H PRN PRN Reason: Nausea Stop: 02/28/19 22:02 Trazodone HCl (Desyrel) 100 mg PO HS [facility] Stop: 02/28/19 22:02 Last Admin: 01/30/19 01:59 Dose: 100 mg Documented by: PG Care Time/CCT Total # of Minutes Spent Total Time Spent with Patient: Total time spent is greater than 50% in coordination of care (as documented) at patient's floor/unit and/or counseling patient:
[2019-01-31] MEDS: BUDESONIDE 0.5 MG/2 ML VIAL (PULMICORT) NEB SCH ×2 (06:54→19:12)
[2019-01-31] MEDS: ARFORMOTEROL TART 15MCG/2ML VIAL INH SCH ×2 (06:54→19:12)
[2019-01-31 07:59] LABS: Hematocrit (blood only) 54.3 % (42-52); Hemoglobin 18.9 g/dL (14.0-18.0); Mean Corpuscular Hgb Conc 34.8 g/dL (32-36); Mean Corpuscular Volume 99.1 fL (80-100); Mean Platelet Volume 10.7 fL (7.4-10.4); Platelet Count 166 K/uL (130-400); RDW Coefficient of Variation 13.1 % (11.5-14.5); RDW Standard Deviation 47.2 fL (36.4-46.3); Red Blood Count 5.48 M/uL (4.7-6.1)
[2019-01-31] MEDS: ASPIRIN 81 MG ECTAB PO SCH (08:21)
[2019-01-31] MEDS: CITALOPRAM 40 MG TAB PO SCH (08:21)
[2019-01-31] MEDS: methylPREDNISolone 40 MG in SYRINGE 0 ML IV SCH ×3 (08:21→23:44)
[2019-01-31] MEDS: METOPROLOL SUCC 50MG EXT REL TAB PO SCH (08:21)
[2019-01-31] MEDS: INSULIN ASPART 100 UNITS/ML 3 ML PEN SC SCH ×4 (08:22→22:11)
[2019-01-31 08:36] LABS: BUN Creatinine Ratio 17.6 (10-20); Calcium 9.3 mg/dl (8.5-10.1); Creatinine Clr Calc Pharmacy 147.8 ml/min; Est GFR (African American) 129.3; Est GFR (Non-African American) 111.6; Potassium 4.4 mmol/L (3.5-5.1)
--- NOTE | 2019-01-31 13:08 | Hospitalist Progress Note ---
Date of Service January 31, 2019 Assessment & Plan (1) Acute respiratory failure with hypoxia: Supplemental oxygen to maintain saturation greater than 90%. Treat underlying COPD exacerbation still on oxygen at 2L still requiring oxygen, dropped to 80's off oxygen continue to try to wean, cancel two step today will try again tomorrow if he is requiring oxygen issue with insurance, will need medical assistance, oxygen may not be covered (2) Acute exacerbation of chronic obstructive pulmonary disease (COPD): continue Solu Medrol and Levaquin, responding well but slowly continue Nebulizers consisting of arformoterol and budesonide plan to d/c on Levaquin discussed using Prednisone, says that he has had two allergic reactions in the past describes his joints "locking" up will use Solu Medrol on discharge (3) Chest pain: resolved on 01/30 troponin was 0.07 and 0.06, not alarming echo shows EF is 65%, mild LVH (4) Elevated troponin: see above (5) Acute bronchitis: continue Solu Medrol and Levaquin (6) Hyperglycemia: HbA1c is 6.0 so he is pre-diabetic cover with Novolog (7) DVT prophylaxis: Lovenox subcu Plan: try to wean off oxygen and d/c tomorrow Subjective patient still feels short of breath but a little better having dyspnea on exertion coughing and bringing up sputum, thick, he does not look at the color no blood still requiring oxygen some issues with insurance, trying to get [place] may make it difficult to get home oxygen discussed with CM will hold off on 2 step, hope we can titrate him off by tomorrow Review of Systems Review of Systems: All systems reviewed & are unremarkable except as noted in HPI & below Constitutional: no fever, no chills, no sweats, no fatigue and no weakness Respiratory: + cough, + dyspnea on exertion and + sputum production; no dyspnea, no hemoptysis and no wheezing Cardiovascular: no chest pain and no edema Physical Exam Constitutional: WD/WN, vitals as above Eyes: PERRL, conjunctivae normal, anicteric sclerae ENMT: external ear and nose normal, oropharynx normal Neck: trachea midline, no thyromegaly Respiratory: normal respiratory effort; no respiratory distress Auscultation: + wheezes (more prominent posteriorly); no crackles and no rales Cardiovascular: RRR, no murmur, no edema Gastrointestinal (Abdomen): normal bowel sounds, soft, nontender, no hepatosplenomegaly Musculoskeletal: no cyanosis or clubbing, extremities motor strength 5/5 Skin: no rashes, warm and dry Neurologic: patellar DTR's 2+ bilat, sensation intact and PERRL, EOMI, accommodation nl, no face palsy, no dysarthria Psychiatric: A+Ox3, euthymic affect Lymphatic: no cervical or axillary lymphadenopathy Results & Data Vital Signs (Past 12 Hours) Vital Signs Pulse Resp Pulse Ox 01/31/19 06:56 85 20 98 Laboratory Results Laboratory Results - last 24 hr 01/30/19 01/30/19 01/31/19 17:35 20:33 07:48 WBC 17.40 H RBC 5.48 Hgb 18.9 H Hct 54.3 H MCV 99.1 MCH 34.5 H MCHC 34.8 RDW Std Deviation 47.2 H RDW Coeff of Nolberto 13.1 Plt Count 166 MPV 10.7 H Sodium Potassium Chloride Carbon Dioxide Anion Gap BUN Creatinine Est Cr Clr Drug Dosing Est GFR ( Amer) Est GFR (Non-Af Amer) BUN/Creatinine Ratio Glucose POC Glucose 166 H 140 H Calcium 01/31/19 01/31/19 01/31/19 07:48 08:04 12:18 WBC RBC Hgb Hct MCV MCH MCHC RDW Std Deviation RDW Coeff of Nolberto Plt Count MPV Sodium 138 Potassium 4.4 Chloride 103 Carbon Dioxide 30 Anion Gap 5.0 BUN 12 Creatinine 0.70 Est Cr Clr Drug Dosing 147.8 Est GFR ( Amer) 129.3 Est GFR (Non-Af Amer) 111.6 BUN/Creatinine Ratio 17.6 Glucose 83 POC Glucose 81 183 H Calcium 9.3 Medications Administered Current Inpatient Medications Acetaminophen (Tylenol) 650 mg PO Q4H PRN PRN Reason: Pain or Fever Stop: 02/28/19 22:02 Al Hydrox/Mg Hydrox/Simethicone (Maalox) 15 ml PO Q4H PRN PRN Reason: Dyspepsia Stop: 02/28/19 22:02 Arformoterol Tartrate (Brovana Neb) 15 mcg INH BIDR [facility] Stop: 02/28/19 22:02 Last Admin: 01/31/19 06:54 Dose: 15 mcg Documented by: Aspirin (Ecotrin Ectab) 81 mg PO QAM [facility] Stop: 03/01/19 08:59 Last Admin: 01/31/19 08:21 Dose: 81 mg Documented by: Budesonide (Pulmicort Respules) 0.5 mg NEB BIDR [facility] Stop: 02/28/19 22:02 Last Admin: 01/31/19 06:54 Dose: 0.5 mg Documented by: Citalopram Hydrobromide (Celexa) 40 mg PO DAILY [facility] Stop: 03/01/19 08:59 Last Admin: 01/31/19 08:21 Dose: 40 mg Documented by: Dextrose (Dextrose 50%) 25 - 50 ml IV UD PRN; Protocol PRN Reason: Hypoglycemia Protocol Stop: 02/28/19 22:14 Glucagon (Glucagen) 1 mg SQ UD PRN; Protocol PRN Reason: Hypoglycemia Protocol Stop: 02/28/19 22:14 Glucose (Glucose 40%) 15 - 30 gm PO UD PRN; Protocol PRN Reason: Hypoglycemia Protocol Stop: 02/28/19 22:14 Glucose (Dex4 Glucose) 4 - 8 tabs PO UD PRN; Protocol PRN Reason: Hypoglycemia Protocol Stop: 02/28/19 22:14 Levofloxacin/Dextrose (Levaquin/D5w) 750 mg in 150 mls @ 100 mls/hr IV Q24H [facility] Stop: 02/05/19 22:59 Last Infusion: 01/30/19 23:53 Dose: Infused Documented by: Methylprednisolone 40 mg/ (Syringe) 0.64 mls @ 1.5 mls/min IV Q8H [facility] Stop: 03/01/19 00:00 Last Admin: 01/31/19 08:21 Dose: 1.5 mls/min Documented by: Insulin Aspart (Novolog Flexpen) 0 units SC ACHS [facility] Stop: 02/28/19 22:02 Last Admin: 01/31/19 08:22 Dose: 8 units Documented by: Ioversol (Optiray 320 125ml) 119 ml IV ONCE PRN PRN Reason: Interaction Checking Stop: 02/02/19 17:57 Last Admin: 01/29/19 17:59 Dose: 119 ml Documented by: Metoprolol Succinate (Toprol Xl) 50 mg PO DAILY [facility] Stop: 03/01/19 08:59 Last Admin: 01/31/19 08:21 Dose: 50 mg Documented by: Miscellaneous (Carbohydrates For Hypoglycemia) 15 - 30 gm PO UD PRN PRN Reason: Hypoglycemia Treatment Stop: 02/28/19 22:14 Miscellaneous (Remove Nicoderm Patch) 1 ea N/A [facility] Stop: 03/02/19 20:59 Nicotine (Nicoderm Cq) 14 mg TD QAM [facility] Stop: 03/02/19 12:14 Ondansetron HCl (Zofran) 4 mg IV Q6H PRN PRN Reason: Nausea Stop: 02/28/19 22:02 Trazodone HCl (Desyrel) 100 mg PO [facility] Stop: 02/28/19 22:02 Last Admin: 01/30/19 20:35 Dose: 100 mg Documented by: PG Care Time/CCT Total # of Minutes Spent Total Time Spent with Patient: Total time spent is greater than 50% in coordination of care (as documented) at patient's floor/unit and/or counseling patient:
[2019-01-31] MEDS: NICOTINE 14 MG/24 HR PATCH TD SCH (13:22)
[2019-01-31] MEDS: TRAZODONE HCL 100 MG TAB PO SCH (20:55)
[2019-01-31] MEDS: LEVOFLOXACIN/D5W 750 MG/150 ML BAG IV SCH (23:16)
[2019-02-01] MEDS: ARFORMOTEROL TART 15MCG/2ML VIAL INH SCH (07:08)
[2019-02-01] MEDS: BUDESONIDE 0.5 MG/2 ML VIAL (PULMICORT) NEB SCH (07:08)
[2019-02-01] MEDS: methylPREDNISolone 40 MG in SYRINGE 0 ML IV SCH ×2 (08:12→15:45)
[2019-02-01] MEDS: NICOTINE 14 MG/24 HR PATCH TD SCH (08:12)
[2019-02-01] MEDS: ASPIRIN 81 MG ECTAB PO SCH (08:13)
[2019-02-01] MEDS: METOPROLOL SUCC 50MG EXT REL TAB PO SCH (08:13)
[2019-02-01] MEDS: CITALOPRAM 40 MG TAB PO SCH (08:13)
[2019-02-01] MEDS: INSULIN ASPART 100 UNITS/ML 3 ML PEN SC SCH ×2 (09:24→12:49)
[2019-02-01] MEDS ORDERED: Nursing to Pharmacy Communication ONE (15:25)
--- NOTE | 2019-02-01 15:53 | Discharge Summary ---
Date of Service February 01, 2019 Admission HPI Per Admitting Provider 48-year-old obese smoker with several days of occasionally productive cough, wheezing, shortness of breath, intermittent chest pain with exertion. No previous cardiac history. He is an active smoker. He presents with acute respiratory distress and hypoxia. Chest x-ray negative for pneumonia. Chest CTA negative for PE. He does have symptoms of acute bronchitis. EKG reveals no acute changes. Troponin is minimally elevated and will be trended. 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 He has received nebulizer treatments and intravenous Solu-Medrol in the ED. ABG is pending. He is admitted for further evaluation and treatment. He denies any hemoptysis, palpitations, syncope. Admission Exam Per Admitting Provider General-alert and oriented x3, no fevers, no chills HEENT-head atraumatic and normocephalic, TMs intact bilaterally. 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 Diffuse bilateral expiratory wheezes. Faint midline rhonchi. No inspiratory rales. No dullness to percussion Cardiac-regular rate and rhythm, normal S1 and S2, no murmurs Abdomen-normal bowel sounds, nontender, no hepatosplenomegaly Extremities-no cyanosis, clubbing, or edema Neuro-cranial nerves II through XII intact, motor and sensory function within normal limits, strength symmetrical , no focal deficits Psych-normal affect, normal mood Principal Diagnosis COPD exacerbation Discharge Exam Constitutional WD/WN, vitals as above Eyes PERRL, conjunctivae normal, anicteric sclerae ENMT external ear and nose normal, oropharynx normal Neck trachea midline, no thyromegaly Respiratory normal respiratory effort; no respiratory distress Auscultation: no crackles, no rales and no wheezes Cardiovascular RRR, no murmur, no edema Gastrointestinal (Abdomen) normal bowel sounds, soft, nontender, no hepatosplenomegaly Musculoskeletal no cyanosis or clubbing, extremities motor strength 5/5 Skin no rashes, warm and dry Neurologic patellar DTR's 2+ bilat, sensation intact and PERRL, EOMI, accommodation nl, no face palsy, no dysarthria Psychiatric A+Ox3, euthymic affect Lymphatic no cervical or axillary lymphadenopathy Discharge Data Allergies Allergy/AdvReac Type Severity Reaction Status Date / Time iodine Allergy Unknown Verified 02/05/19 11:50 mushroom Allergy SWELLING Verified 02/05/19 11:50 OF NECK shellfish derived Allergy REDNESS & Verified 02/05/19 11:50 SWELLING OF NECK Sulfa (Sulfonamide Allergy Unknown Verified 02/05/19 11:50 Antibiotics) prednisone AdvReac Unknown Verified 02/05/19 11:50 seafood Allergy Uncoded 02/05/19 11:50 Consultations 01/29/19 18:31 ED Decision to Admit Stat Ordered Studies 01/29/19 17:33 CT angio chest PE protocol Stat Hospital Course (1) Acute respiratory failure with hypoxia: Supplemental oxygen to maintain saturation greater than 90%. Treat underlying COPD exacerbation still requiring oxygen but only on exertion weaned to room air at rest required 1L on exertion with two step (2) Acute exacerbation of chronic obstructive pulmonary disease (COPD): treated with Solu Medrol and Levaquin, responding well but slowly continue Nebulizers consisting of arformoterol and budesonide plan to d/c on Levaquin discussed using Prednisone, says that he has had two allergic reactions in the p ast describes his joints "locking" up will use methylprednisolone on discharge (3) Chest pain: resolved on 01/30 troponin was 0.07 and 0.06, not alarming echo shows EF is 65%, mild LVH (4) Elevated troponin: see above (5) Acute bronchitis: continue Solu Medrol and Levaquin (6) Hyperglycemia: HbA1c is 6.0 so he is pre-diabetic cover with Novolog (7) DVT prophylaxis: Lovenox subcu Total Time Total Time Spent Total Time Spent (In Minutes): 35 minutes Total Time Includes: Examination of the Patient, Discharge Planning and Medication Reconciliation Discharge Plan Discharge Items Patient Disposition: Home - Self-Care Reason For Visit: ACUTE RESPIRATORY FAILURE,EXACERBATION COPD,BRONCH Discharge Diagnosis: COPD exacerbation Acute hypoxic respiratory failure Condition: Good Discharge Goals: Improve disease control and Improve function Activity: Resume your previous activity Non-emergency contact: Primary Care Provider Call non-emergency contact if: you have any medication questions, your symptoms worsen and you have a fever Follow-up/Referrals: Ari Ferrera MD [Primary Care Provider] - 02/05/19 11:30 am (Please, follow up with Dr. Ferrera on MondayFebruary 05 at 11:30 am. *If you need to change this appointment, call the office at [phone].) Diet: Regular Addtl Provider Instructions: Medications: - LEVOFLOXACIN: 750mg daily, take next dose tomorrow, complete 4 more days - MEDROL: follow instructions on back, will taper over next several days COPD exacerbation: improved with Solu Medrol IV and Levofloxacin IV complete the above treatments continue to use your Advair twice a day and use Albuterol four times a day as needed recommend close follow up with Dr. Ferrera Hypoxia: based on two step today, you qualify for 1L of oxygen while exerting yourself use this for time being, can be retested in office with Dr. Ferrera in near future to see if you still need the oxygen Tobacco abuse: recommend that you stop smoking the more you smoke it makes you more prone to COPD exacerbations and increases risk of cancer discuss options with Dr. Ferrera Prescriptions: New methylprednisolone [Medrol (Willie)] 4 mg tablets,dose pack 4 mg PO UD Qty: 21 RF: 0 Continued citalopram [Celexa] 40 mg tablet 40 mg PO DAILY RF: 0 trazodone 100 mg tablet 100 - 150 mg PO HS RF: 0 albuterol sulfate [Ventolin HFA] 90 mcg/actuation HFA aerosol inhaler 2 puff inhalation Q4 PRN (Reason: Shortness Of Breath Or Wheezing) RF: 0 Advair HFA 230-21 mcg/actuation HFA aerosol inhaler 1 puff inhalation BID RF: 0 metoprolol succinate [Toprol XL] 50 mg tablet extended release 24 hr 50 mg PO DAILY RF: 0 No Action nicotine 21 mg/24 hr patch 24 hour 1 patch TD DAILY Qty: 28 RF: 1 Stand-Alone Forms: Call Back Authorization, [facility]/Other Patient Handouts: Prediabetes, Diabetes Meal Planning Discharge Orders: Discharge Order (Routine); Ordered 02/01/19 Ordered By: Ed Jewell Admission Data Admit Date/Time: 01/29/19 19:19 Attending Provider: Ed Jewell Admit Provider: Randy Gutiérrez Primary Care Provider: Ari Ferrera Other Providers: Randy Gutiérrez Service: Surgical Services Other Interventions: Discharge Summary Assessment (RN) Last Done: 02/01/19 15:16 DC Date/Time DO NOT enter until pt leaves facility: 02/01/19 16:09
[2019-02-01] MEDS ORDERED: methylPREDNISolone 4 MG TAB PO SCH (16:00)
[2019-02-02] MEDS ORDERED: levoFLOXacin 750 MG TAB PO SCH ×2 (09:00)
== END 2019-02-01 16:09 | disposition home or self-care (01) | DRG 190 ==
LOC: ED 17:02 → SUATTDRO 19:19 → 2S 19:19 → 2N 01-30 10:03 → 3W 01-31 07:36
DX: Z91.013 Allergy to seafood; R73.9 Hyperglycemia, unspecified; F17.210 Nicotine dependence, cigarettes, uncomplicated; J44.1 Chronic obstructive pulmonary disease with (acute) exacerbation; J96.01 Acute respiratory failure with hypoxia; Z88.2 Allergy status to sulfonamides; Z91.018 Allergy to other foods

== ENCOUNTER 2021-01-30 20:35 | Inpatient (IN) ==
[2021-01-30] MEDS ORDERED: ASPIRIN CHEW 324 MG PO STA (20:55)
[2021-01-30] MEDS ORDERED: SODIUM CHLORIDE 0.9% 1000ML 1,000 ML IV STA (20:55)
[2021-01-30] MEDS ORDERED: NITROGLYCERIN SL 0.4 MG/TAB TAB SL STA (20:55)
[2021-01-30 21:06] LABS: Basophils # (auto) 0.02 K/uL (0-0.2); Basophils % (auto) 0.2 %; Eosinophils # (auto) 0.12 K/uL (0-0.5); Eosinophils % (auto) 1.1 %; Hematocrit (blood only) 56.8 % (42-52); Hemoglobin 18.7 g/dL (14.0-18.0); Immature Granulocytes # (auto) 0.04 K/uL (0.00-0.02); Immature Granulocytes % (auto) 0.4 %; Lymphocytes # (auto) 1.83 K/uL (1.2-3.4); Lymphocytes % (auto) 17.3 %; Mean Corpuscular Hemoglobin 31.4 pg (25-34); Mean Corpuscular Volume 95.3 fL (80-100); Mean Platelet Volume 10.6 fL (7.4-10.4); Monocytes % (auto) 9.5 %; Neutrophils # (auto) 7.57 K/uL (1.4-6.5); Neutrophils % (auto) 71.5 %; Platelet Count 168 K/uL (130-400); RDW Coefficient of Variation 13.7 % (11.5-14.5); RDW Standard Deviation 48.2 fL (36.4-46.3); Red Blood Count 5.96 M/uL (4.7-6.1); White Blood Count 10.58 K/uL (4.8-10.8)
[2021-01-30 21:18] LABS: Partial Thromboplastin Ratio 1.1; Partial Thromboplastin Time 28.6 Seconds (21.0-31.0)
[2021-01-30 21:19] LABS: D Dimer 600 ug/L FEU (0-500)
[2021-01-30 21:29] LABS: Albumin Level 3.4 gm/dl (3.4-5.0); BUN Creatinine Ratio 10.4 (10-20); Calcium 8.9 mg/dl (8.5-10.1); Creatinine Clr Calc Pharmacy 145.1 ml/min; Potassium 4.2 mmol/L (3.5-5.1)
[2021-01-30 21:30] LABS: Mean Corpuscular Hgb Conc 32.9 g/dL (32-36)
[2021-01-30 21:40] LABS: Albumin Globulin Ratio 0.8 (0.9-2); Bilirubin,Total 0.7 mg/dl (0.2-1); Globulin 4.2 gm/dl (2.5-4.0); Total Protein 7.6 gm/dl (6.4-8.2); Troponin I 0.135 ng/ml (0-0.045)
[2021-01-30] MEDS ORDERED: Heparin IV Adult Wt-Based Standard WITH Bolus Protocol STA (21:43)
--- NOTE | 2021-01-30 21:43 | Emergency Department Note ---
Impression & Plan Chest pain, Abnormal ECG, Elevated d-dimer, Hypoxia ED Provider Note INFORMANT: Patient ED PROVIDER(S): Gonzalez Colón MD CHIEF COMPLAINT: Chest pain PLAN: Disposition: Admitted Condition: Good Outpatient prescription management: none Referral: None MEDICAL DECISION MAKING: Patient presented complaining of chest pain. His ECG showed acute changes. He was given aspirin and nitro x1. He had resolution of his pain. His blood work was unremarkable except for a mildly elevated D-dimer and troponin. The patient was started on IV heparin. CT imaging did not reveal any evidence of thromboembolic disease. The patient will need further management in the hospital. He is in agreement. Consultation was made with Dr. Santo of the hospitalist service. The patient was evaluated in the ER and admitted for further management. Triage Nursing notes reviewed and agree them. Vital Signs: reviewed and remarkable for no significant abnormalities Differential diagnosis: Cardiac ischemia, aortic dissection, pulmonary embolism, pneumothorax, pneumonia, pericarditis, myocarditis, esophageal rupture, GERD, cholecystitis, pancreatitis, musculoskeletal, as well as other pathologies. Diagnostics interpreted by me: ECG: Twelve-lead ECG reveals a normal sinus rhythm of [address] and T wave abnormality anteriorly concerning for ischemia. There is no ST elevation present. No PVCs. When compared to his last ECG of 2019 the anterior T wave inversions are new. Cardiac Monitoring: Cardiac monitoring ordered by me: The patient was placed on continuous cardiac monitoring and observed. It revealed a normal sinus rhythm at 97 beats per minute without ectopy or evidence of dysrhythmia. Imaging studies: Imaging studies: Chest x-ray. Findings: A chest x-ray was performed and revealed no pneumothorax, effusion, infiltrate, pulmonary edema, free air under the diaphragm, or wide mediastinum. Impression: No acute disease. HPI: The patient is a 50 year old male who presents to the Emergency Room with complaints of chest pain. This started 2 days ago and is persisting. The patient also notes the following associated symptoms, shortness of breath, neck pain, sweating. The patient is supposed to wear oxygen. He has a history of COPD. He states he does wear this at night. When he presented he was noted to be hypoxic. The patient has taken no medication for relieving factors. Current pain is rated as 6/10. Pt denies LOC, headache, fevers, chills, visual changes, neck pain, nausea, vomiting, abdominal pain, back pain, melena, hematochezia, urinary symptoms, numbness, weakness, lymphadenopathy, rash, or other complaints. ROS: See above HPI for pertinent positives & negatives. A total of 10 systems reviewed and were otherwise negative. PAST MEDICAL HISTORY:See Below , COPD PAST SURGICAL HISTORY:See Below, FAMILY HISTORY:See Below SOCIAL HISTORY:See Below, smoker, regular alcohol consumption HOME MEDICATIONS:See Below ALLERGIES:See Below VITALS:See Below PHYSICAL EXAMINATION: GENERAL: Awake, alert, uncomfortable-appearing, in no distress HENT: Normocephalic, atraumatic. Oropharynx unremarkable. EYES: Normal conjunctiva. Sclera non-icteric. NECK: Inspection normal. Non-tender. Supple. No nuchal rigidity. FROM. No masses. RESPIRATORY: Scattered wheezes. No rales. Normal respiratory effort. CARDIAC: Normal rate. Normal rhythm. No murmurs. No rubs. Extremities warm and well perfused. Pulses equal. No JVD. GI: Soft, non-distended. No tenderness to palpation. No rebound or guarding. No masses. RECTAL: Deferred. MUSCULOSKELETAL: Atraumatic. Chest examination reveals no tenderness. The back is symmetrical on inspection without obvious abnormality. There is no CVA tenderness to palpation. No joint edema. LOWER EXTREMITIES: Calves are equal size bilaterally and non-tender. No edema. No discoloration. NEURO: Normal sensorium. No sensory or motor deficits noted. SKIN: No rash or jaundice noted. CRITICAL CARE: I have personally spent greater than 35 minutes of critical care time in the direct management of this patient. This includes bedside care, interpretation of diagnostic studies, and testing, discussion with consultants, patient, and other required patient management activities. These minutes are in excess of all separately billable procedures. Gonzalez Colón MD Past Med/Surg History Medical History Abnormal weight gain Acute bronchitis Acute exacerbation of chronic obstructive pulmonary disease (COPD) Acute respiratory failure with hypoxia Adenoma of colon Alcohol dependence Annual physical exam Cervicalgia Chest pain Elevated troponin Hearing loss Prostate cancer screening Right wrist tendonitis Surgical History H/O eye surgery H/O hand surgery History of hernia repair History of oral surgery Retinal detachment S/P small bowel resection Family History Mother Heart disease Social History Smoking Status: Current every day smoker Tobacco Type: Cigarettes Cigarettes Per Day: 20; Do You Dip or Chew Tobacco: No; Tobacco Cessation Education Requested by Patient: No Hx Alcohol Use: Yes Alcohol type: beer Hx Substance Use: Yes Last Used Substance: Days (ago) Last Used Substance Other:: Last was 10 days ago Preferred Language: Danish Communication Ability: Effective Communication Ability Comment: Right eye blind Etcher Hand Required: No Beliefs That Will Affect Care: None marital status: Single Current Living Situation: Alone Other Information That Helps Us Care for You: No Feels Safe at Home: Yes Safety Concerns: Feels Safe At This Time Assistive Devices: None Allergies Allergies Allergy/AdvReac Type Severity Reaction Status Date / Time mushroom Allergy Intermediate SWELLING Verified 01/30/21 21:13 OF NECK shellfish derived Allergy Intermediate REDNESS & Verified 01/30/21 21:13 SWELLING OF NECK iodine Allergy Unknown Unknown Verified 01/30/21 21:13 Sulfa (Sulfonamide Allergy Unknown Unknown Verified 01/30/21 21:13 Antibiotics) prednisone AdvReac Unknown Unknown Verified 01/30/21 21:13 seafood Allergy Unknown Unknown Uncoded 01/30/21 21:13 Home Meds Home Medications Medication Instructions Recorded Confirmed fluticasone 250 mcg-salmeterol 50 1 inh INHALATION BID 01/30/21 01/30/21 mcg/dose blistr powdr for inhalation (Advair Diskus) mirtazapine 15 mg tablet 15 mg PO HS PRN 01/30/21 01/30/21 Previous Rx's Medication Instructions Recorded sumatriptan succinate 50 mg tablet See Rx Instructions PO .COMPLEX #9 01/13/20 tab meloxicam 15 mg tablet 15 mg PO DAILY PRN #30 tab 02/17/20 mometasone-formoterol HFA 200 2 puff INHALATION BID #13 g 10/21/20 mcg-5 mcg/actuation aerosol inhaler (Dulera) tiotropium bromide 1.25 2 puff INH DAILY #4 gm 10/21/20 mcg/actuation mist for inhalation (Spiriva Respimat) metoprolol succinate 100 mg 100 mg PO DAILY #90 tab 11/26/20 tablet,extended release 24 hr Results & Data (ED) Vital Signs Vital Signs - 24 hr 01/30/21 20:38 01/30/21 20:50 Temperature 36.4 C L Temperature Source Temporal Artery Scan Pulse Rate 101 H 97 H Respiratory Rate 20 30 H Respiratory Effort / Characteristics Non-Labored Spontaneous Respiratory Depth Normal Blood Pressure 137/88 Blood Pressure Mean 104 Pulse Oximetry 86 L 95 Oxygen Delivery Method Room Air Nasal Cannula Oxygen Flow Rate 4 Sepsis Recent Fever Within 48 Hours No Sepsis New/Unexplained Change in Mental Status N/A Sepsis Action Taken by Nursing No Action Required Laboratory Data Result diagrams: 01/30/21 20:50 01/30/21 20:50 Lab Results 01/30/21 01/30/21 01/30/21 Range/Units 20:50 20:50 20:50 WBC 10.58 (4.8-10.8) K/uL RBC 5.96 (4.7-6.1) M/uL Hgb 18.7 H (14.0-18.0) g/dL Hct 56.8 H (42-52) % MCV 95.3 (80-100) fL MCH 31.4 (25-34) pg MCHC 32.9 (32-36) g/dL RDW Std Deviation 48.2 H (36.4-46.3) fL RDW Coeff of Nolberto 13.7 (11.5-14.5) % Plt Count 168 (130-400) K/uL MPV 10.6 H (7.4-10.4) fL Immature Gran % (Auto) 0.4 % Neut % (Auto) 71.5 % Lymph % (Auto) 17.3 % [place] % (Auto) 9.5 % Eos % (Auto) 1.1 % Baso % (Auto) 0.2 % Neut # (Auto) 7.57 H (1.4-6.5) K/uL Lymph # (Auto) 1.83 (1.2-3.4) K/uL [place] # (Auto) 1.00 H (0.11-0.59) K/uL Eos # (Auto) 0.12 (0-0.5) K/uL Baso # (Auto) 0.02 (0-0.2) K/uL Immature Gran # (Auto) 0.04 H (0.00-0.02) K/uL APTT 28.6 (21.0-31.0) Seconds PTT Ratio 1.1 D-Dimer 600 H* (0-500) ug/L FEU Sodium 137 (136-145) mmol/L Potassium 4.2 (3.5-5.1) mmol/L Chloride 102 (98-107) mmol/L Carbon Dioxide 33 H (21-32) mmol/L Anion Gap 3.0 (3-11) BUN 8 (7-18) mg/dl Creatinine 0.75 (0.6-1.4) mg/dl Est Cr Clr Drug Dosing 145.1 ml/min Est GFR ( Amer) 124.0 ml/min Est GFR (Non-Af Amer) 107.0 ml/min BUN/Creatinine Ratio 10.4 (10-20) Glucose 119 H (70-99) mg/dl Calcium 8.9 (8.5-10.1) mg/dl Total Bilirubin 0.7 (0.2-1) mg/dl AST 33 (15-37) U/L ALT 50 (12-78) U/L Alkaline Phosphatase 79 (45-117) U/L Troponin I 0.135 H* (0-0.045) ng/ml Total Protein 7.6 (6.4-8.2) gm/dl Albumin 3.4 (3.4-5.0) gm/dl Globulin 4.2 H (2.5-4.0) gm/dl Albumin/Globulin Ratio 0.8 L (0.9-2) Lipase 156 (73-393) U/L COVID-19 Eval Order SARS-CoV-2 (PCR) (Negative) 01/30/21 01/30/21 Range/Units 21:02 21:02 WBC (4.8-10.8) K/uL RBC (4.7-6.1) M/uL Hgb (14.0-18.0) g/dL Hct (42-52) % MCV (80-100) fL MCH (25-34) pg MCHC (32-36) g/dL RDW Std Deviation (36.4-46.3) fL RDW Coeff of Nolberto (11.5-14.5) % Plt Count (130-400) K/uL MPV (7.4-10.4) fL Immature Gran % (Auto) % Neut % (Auto) % Lymph % (Auto) % [place] % (Auto) % Eos % (Auto) % Baso % (Auto) % Neut # (Auto) (1.4-6.5) K/uL Lymph # (Auto) (1.2-3.4) K/uL [place] # (Auto) (0.11-0.59) K/uL Eos # (Auto) (0-0.5) K/uL Baso # (Auto) (0-0.2) K/uL Immature Gran # (Auto) (0.00-0.02) K/uL APTT (21.0-31.0) Seconds PTT Ratio D-Dimer (0-500) ug/L FEU Sodium (136-145) mmol/L Potassium (3.5-5.1) mmol/L Chloride (98-107) mmol/L Carbon Dioxide (21-32) mmol/L Anion Gap (3-11) BUN (7-18) mg/dl Creatinine (0.6-1.4) mg/dl Est Cr Clr Drug Dosing ml/min Est GFR ( Amer) ml/min Est GFR (Non-Af Amer) ml/min BUN/Creatinine Ratio (10-20) Glucose (70-99) mg/dl Calcium (8.5-10.1) mg/dl Total Bilirubin (0.2-1) mg/dl AST (15-37) U/L ALT (12-78) U/L Alkaline Phosphatase (45-117) U/L Troponin I (0-0.045) ng/ml Total Protein (6.4-8.2) gm/dl Albumin (3.4-5.0) gm/dl Globulin (2.5-4.0) gm/dl Albumin/Globulin Ratio (0.9-2) Lipase (73-393) U/L COVID-19 Eval Order Covid19 at [facility] SARS-CoV-2 (PCR) NEGATIVE (Negative) Administered Medications Sodium Chloride (Nss 1000ml) 1,000 mls @ 125 mls/hr IV .Q8H STA Stop: 01/31/21 04:54 Last Infusion: 01/30/21 22:21 Dose: 0 mls/hr Documented by: [id number] Admin: 01/30/21 21:03 Dose: 125 mls/hr Documented by: [id number] Heparin Sodium/Dextrose (Heparin Sodium/Dextrose) 25,000 units in 500 mls @ 31 mls/hr IV .Q16H8M SKY; Protocol Stop: 03/01/21 21:59 Last Admin: 01/30/21 22:31 Dose: 1,550 units/hr, 31 mls/hr Documented by: [id number] Cosigned by: [id number] Mirtazapine (Mirtazapine Tab 15 Mg Tab) 15 mg PO HS PRN PRN Reason: Sleep Stop: 03/01/21 23:27 Last Admin: 01/31/21 00:36 Dose: 15 mg Documented by: [id number] Nicotine (Nicotine 21 Mg/24 Hr Tdsy) 21 mg TD Q24H SKY Stop: 03/02/21 00:14 Last Admin: 01/31/21 00:35 Dose: 21 mg Documented by: [id number] Discontinued Medications Aspirin (Aspirin Chew 324 Mg) 324 mg PO NOW STA Stop: 01/30/21 20:56 Last Admin: 01/30/21 21:03 Dose: 324 mg Documented by: [id number] Diphenhydramine HCl (Diphenhydramine 50 Mg/Ml Vial) 25 mg IV NOW STA Stop: 01/30/21 21:58 Last Admin: 01/30/21 22:00 Dose: 25 mg Documented by: [id number] Famotidine (Famotidine 20mg/5ml Iv Push) 20 mg IV ONE STA Stop: 01/30/21 21:58 Last Admin: 01/30/21 22:00 Dose: 20 mg Documented by: [id number] Heparin Sodium (Porcine) (Heparin Sod (Porcine) 1000 Unit/Ml) 1 units IV NOW ONE Stop: 01/30/21 22:01 Last Admin: 01/30/21 22:32 Dose: 5,000 units Documented by: [id number] Cosigned by: [id number] Heparin Sodium/Dextrose (Heparin Iv Adult Wt-Based Standard With Bolus Protocol) 1 ea N/A NOW STA; Protocol Stop: 01/30/21 21:44 Last Admin: 01/30/21 22:34 Dose: 1 ea Documented by: [id number] Ioversol (Optiray 320 125ml) 120 ml IV ONCE ONE Stop: 01/30/21 22:14 Last Admin: 01/30/21 22:17 Dose: 120 ml Documented by: [id number] Methylprednisolone (Methylprednisolone 125 Mg/2 Ml Vial) 125 mg IV NOW STA Stop: 01/30/21 21:58 Last Admin: 01/30/21 22:00 Dose: 125 mg Documented by: [id number] Nitroglycerin (Nitroglycerin Sl 0.4 Mg/Tab Tab) 0.4 mg SL NOW STA Stop: 01/30/21 20:56 Last Admin: 01/30/21 21:03 Dose: 0.4 mg Documented by: [id number] Discharge Plan Visit Data Chief Complaint: Chest Pain Stated Complaint: CHEST PAIN - WOKE UP WITH IT LAST 2 MORNINGS ED Provider: Gonzalez Colón Discharge Problem: Chest pain, Abnormal ECG, Elevated d-dimer, Hypoxia Patient Disposition: Admitted As Inpatient Discharge Instructions Interventions: ED Discharge Assessment Last Done: 01/30/21 23:09
[2021-01-30] MEDS ORDERED: FAMOTIDINE 20MG/5ML IV PUSH IV STA (21:57)
[2021-01-30] MEDS ORDERED: diphenhydrAMINE 50 MG/ML VIAL IV STA (21:57)
[2021-01-30] MEDS ORDERED: methylPREDNISolone 125 MG/2 ML VIAL IV STA (21:57)
[2021-01-30] MEDS ORDERED: HEPARIN SOD (PORCINE) 1000 UNIT/ML IV ONE (22:00)
[2021-01-30] MEDS ORDERED: OPTIRAY 320 125ml IV ONE (22:13)
--- NOTE | 2021-01-30 22:28 | History & Physical Report ---
Date of Service January 30, 2021 Assessment & Plan (1) Chest pain: Plan: Simon Clement is a 50-year-old male with past medical history of COPD, hyperlipidemia, hypothyroidism, migraines, GERD, hypertension; who presented to the ED for concerns of chest pain has been ongoing for last 2 days. Chest pain: -Patient with some features concerning for typical chest pain/SD -D-dimer minorly elevated to 600 -CTA chest negative for signs of PE -Initial troponin 0.135 -Initial EKG demonstrating T wave inversions in anterior leads, with ST depressions -Continue heparin gtt started in ED -Continue to trend troponins overnight -A1c, lipid panel in a.m. COPD: -Patient continues to smoke greater than 20 cigarettes a day -Continue Advair, Spiriva Hypertension: -Continue home regimen of metoprolol 100 mg daily Migraines: -Continue home regimen of sumatriptan 50 mg as needed Insomnia: -Continue home regimen of Remeron as needed Diet: Heart healthy CODE STATUS: Full code DVT prophylaxis: Continue heparin drip (2) COPD (chronic obstructive pulmonary disease): (3) Benign essential hypertension: (4) GERD (gastroesophageal reflux disease): (5) Chronic insomnia: History of Present Illness Chief Complaint: Chest pain Primary Care Provider: Ari Ferrera MD Simon Clement is a 50-year-old male with past medical history of COPD, hyperlipidemia, hypothyroidism, migraines, GERD, hypertension; who presented to the ED for concerns of chest pain has been ongoing for last 2 days. First noticed it early in the morning 2 days ago, and was associated with some shortness of breath, and sweating. Initially did not think much of it, however as it continued over the last 2 days and worsen earlier today he realized he should probably have this looked at. Over this time, he did notice some increased discomfort with exertion. Did not notice any changes or discomfort with eating. Did not have any associated nausea, or vomiting. Occasionally will get some kind of chest pains that are relatively dissimilar to this, which he attributes to his COPD, as he knows he is supposed to be wearing oxygen but does not do so on a regular basis. Upon presentation to the ED patient was continuing to have this chest pain, subsequently alleviated with sublingual nitroglycerin and aspirin. Continues to note a small amount of substernal chest pain, that has not gone away. This current pain does not travel or move anywhere outside of that area. Allergies Allergy/AdvReac Type Severity Reaction Status Date / Time mushroom Allergy Intermediate SWELLING Verified 01/30/21 21:13 OF NECK shellfish derived Allergy Intermediate REDNESS & Verified 01/30/21 21:13 SWELLING OF NECK iodine Allergy Unknown Unknown Verified 01/30/21 21:13 Sulfa (Sulfonamide Allergy Unknown Unknown Verified 01/30/21 21:13 Antibiotics) prednisone AdvReac Unknown Unknown Verified 01/30/21 21:13 seafood Allergy Unknown Unknown Uncoded 01/30/21 21:13 Home Medications Medication Instructions Recorded Confirmed Type sumatriptan succinate 50 mg tablet See Rx Instructions PO .COMPLEX #9 01/13/20 01/30/21 Rx tab meloxicam 15 mg tablet 15 mg PO DAILY PRN #30 tab 02/17/20 01/30/21 Rx mometasone-formoterol HFA 200 2 puff INHALATION BID #13 g 10/21/20 01/30/21 Rx mcg-5 mcg/actuation aerosol inhaler (Dulera) tiotropium bromide 1.25 2 puff INH DAILY #4 gm 10/21/20 01/30/21 Rx mcg/actuation mist for inhalation (Spiriva Respimat) metoprolol succinate 100 mg 100 mg PO DAILY #90 tab 11/26/20 01/30/21 Rx tablet,extended release 24 hr fluticasone 250 mcg-salmeterol 50 1 inh INHALATION BID 01/30/21 01/30/21 History mcg/dose blistr powdr for inhalation (Advair Diskus) mirtazapine 15 mg tablet 15 mg PO HS PRN 01/30/21 01/30/21 History Past Med/Surg History Medical History Abnormal weight gain Acute bronchitis Acute exacerbation of chronic obstructive pulmonary disease (COPD) Acute respiratory failure with hypoxia Adenoma of colon Alcohol dependence Annual physical exam Cervicalgia Chest pain Elevated troponin Hearing loss Prostate cancer screening Right wrist tendonitis Surgical History H/O eye surgery H/O hand surgery History of hernia repair History of oral surgery Retinal detachment S/P small bowel resection Family History Mother Heart disease Social History Smoking Status: Current every day smoker Tobacco Type: Cigarettes Cigarettes Per Day: 20; Do You Dip or Chew Tobacco: No; Tobacco Cessation Education Requested by Patient: No Hx Alcohol Use: Yes Alcohol type: beer Hx Substance Use: Yes Last Used Substance: Days (ago) Last Used Substance Other:: Last was 10 days ago Preferred Language: [place] Communication Ability: Effective Communication Ability Comment: Right eye blind Stone Unloader Required: No Beliefs That Will Affect Care: None marital status: Single Current Living Situation: Alone Other Information That Helps Us Care for You: No Feels Safe at Home: Yes Safety Concerns: Feels Safe At This Time Assistive Devices: None Review of Systems Review of Systems: All systems reviewed & are unremarkable except as noted in HPI & below Physical Exam Constitutional: WD/WN, vitals as above Eyes: PERRL, conjunctivae normal, anicteric sclerae Respiratory: normal respiratory effort; no respiratory distress, no labored breathing and does not use accessory muscles Auscultation: + wheezes; no crackles, no rales and no rhonchi Cardiovascular: Rate/Rhythm: regular rate and regular rhythm Heart Sounds: no gallop, no murmur and no cardiac rub Vessels: normal peripheral pulses; no JVD Extremities: no edema Gastrointestinal (Abdomen): Inspection/Auscultation: normal bowel sounds; abdomen not distended Percussion/Palpation: abdomen soft; abdomen nontender and no guarding Musculoskeletal: no cyanosis or clubbing, extremities motor strength 5/5 Skin: no rashes, warm and dry Neurologic: PERRL, EOMI, accommodation nl, no face palsy, no dysarthria CN's II-XI intact bilaterally and moves all extremities Psychiatric: Orientation: alert and oriented x 3 Results & Data Results & Data ([facility]) Vital Signs (Past 12 Hours) Vital Signs Temp Pulse Resp BP Pulse Ox 01/30/21 20:50 97 H 30 H 95 01/30/21 20:38 36.4 C L 101 H 20 137/88 86 L Laboratory Results 01/30/21 01/30/21 01/30/21 Range/Units 21:02 21:02 20:50 WBC (4.8-10.8) K/uL RBC (4.7-6.1) M/uL Hgb (14.0-18.0) g/dL Hct (42-52) % MCV (80-100) fL MCH (25-34) pg MCHC (32-36) g/dL RDW Std Deviation (36.4-46.3) fL RDW Coeff of Nolberto (11.5-14.5) % Plt Count (130-400) K/uL MPV (7.4-10.4) fL Immature Gran % (Auto) % Neut % (Auto) % Lymph % (Auto) % [place] % (Auto) % Eos % (Auto) % Baso % (Auto) % Neut # (Auto) (1.4-6.5) K/uL Lymph # (Auto) (1.2-3.4) K/uL [place] # (Auto) (0.11-0.59) K/uL Eos # (Auto) (0-0.5) K/uL Baso # (Auto) (0-0.2) K/uL Immature Gran # (Auto) (0.00-0.02) K/uL APTT (21.0-31.0) Seconds PTT Ratio D-Dimer (0-500) ug/L FEU Sodium 137 (136-145) mmol/L Potassium 4.2 (3.5-5.1) mmol/L Chloride 102 (98-107) mmol/L Carbon Dioxide 33 H (21-32) mmol/L Anion Gap 3.0 (3-11) BUN 8 (7-18) mg/dl Creatinine 0.75 (0.6-1.4) mg/dl Est Cr Clr Drug Dosing 145.1 ml/min Est GFR ( Amer) 124.0 ml/min Est GFR (Non-Af Amer) 107.0 ml/min BUN/Creatinine Ratio 10.4 (10-20) Glucose 119 H (70-99) mg/dl Calcium 8.9 (8.5-10.1) mg/dl Total Bilirubin 0.7 (0.2-1) mg/dl AST 33 (15-37) U/L ALT 50 (12-78) U/L Alkaline Phosphatase 79 (45-117) U/L Troponin I 0.135 H* (0-0.045) ng/ml Total Protein 7.6 (6.4-8.2) gm/dl Albumin 3.4 (3.4-5.0) gm/dl Globulin 4.2 H (2.5-4.0) gm/dl Albumin/Globulin Ratio 0.8 L (0.9-2) Lipase 156 (73-393) U/L COVID-19 Eval Order Covid19 at [facility] SARS-CoV-2 (PCR) NEGATIVE (Negative) 01/30/21 01/30/21 Range/Units 20:50 20:50 WBC 10.58 (4.8-10.8) K/uL RBC 5.96 (4.7-6.1) M/uL Hgb 18.7 H (14.0-18.0) g/dL Hct 56.8 H (42-52) % MCV 95.3 (80-100) fL MCH 31.4 (25-34) pg MCHC 32.9 (32-36) g/dL RDW Std Deviation 48.2 H (36.4-46.3) fL RDW Coeff of Nolberto 13.7 (11.5-14.5) % Plt Count 168 (130-400) K/uL MPV 10.6 H (7.4-10.4) fL Immature Gran % (Auto) 0.4 % Neut % (Auto) 71.5 % Lymph % (Auto) 17.3 % [place] % (Auto) 9.5 % Eos % (Auto) 1.1 % Baso % (Auto) 0.2 % Neut # (Auto) 7.57 H (1.4-6.5) K/uL Lymph # (Auto) 1.83 (1.2-3.4) K/uL [place] # (Auto) 1.00 H (0.11-0.59) K/uL Eos # (Auto) 0.12 (0-0.5) K/uL Baso # (Auto) 0.02 (0-0.2) K/uL Immature Gran # (Auto) 0.04 H (0.00-0.02) K/uL APTT 28.6 (21.0-31.0) Seconds PTT Ratio 1.1 D-Dimer 600 H* (0-500) ug/L FEU Sodium (136-145) mmol/L Potassium (3.5-5.1) mmol/L Chloride (98-107) mmol/L Carbon Dioxide (21-32) mmol/L Anion Gap (3-11) BUN (7-18) mg/dl Creatinine (0.6-1.4) mg/dl Est Cr Clr Drug Dosing ml/min Est GFR ( Amer) ml/min Est GFR (Non-Af Amer) ml/min BUN/Creatinine Ratio (10-20) Glucose (70-99) mg/dl Calcium (8.5-10.1) mg/dl Total Bilirubin (0.2-1) mg/dl AST (15-37) U/L ALT (12-78) U/L Alkaline Phosphatase (45-117) U/L Troponin I (0-0.045) ng/ml Total Protein (6.4-8.2) gm/dl Albumin (3.4-5.0) gm/dl Globulin (2.5-4.0) gm/dl Albumin/Globulin Ratio (0.9-2) Lipase (73-393) U/L COVID-19 Eval Order SARS-CoV-2 (PCR) (Negative) Diagnostic Findings CTA CHEST: Comparison: CT 01/29/2019 Limited evaluation of distal subsegmental pulmonary arteries and upper lung zones due to respiratory motion artifact. Otherwise, no evidence of PE. New mild streaky dependent opacity in the right lower lobe, likely subsegmental atelectasis or scarring. No pleural effusions. No adenopathy. Heart size is normal. No thoracic aortic aneurysm or dissection.. Radiologist: Conchita Dowd M.D. Medications Administered Home Medication List Medication Instructions Recorded sumatriptan succinate 50 mg tablet See Rx Instructions PO .COMPLEX #9 01/13/20 tab meloxicam 15 mg tablet 15 mg PO DAILY PRN #30 tab 02/17/20 mometasone-formoterol HFA 200 2 puff INHALATION BID #13 g 10/21/20 mcg-5 mcg/actuation aerosol inhaler (Dulera) tiotropium bromide 1.25 2 puff INH DAILY #4 gm 10/21/20 mcg/actuation mist for inhalation (Spiriva Respimat) metoprolol succinate 100 mg 100 mg PO DAILY #90 tab 11/26/20 tablet,extended release 24 hr fluticasone 250 mcg-salmeterol 50 1 inh INHALATION BID 01/30/21 mcg/dose blistr powdr for inhalation (Advair Diskus) mirtazapine 15 mg tablet 15 mg PO HS PRN 01/30/21 Supervising Physician Co-Signing Physician Notes Patient seen and examined, chart reviewed, case discussed with Dr. Smith and I agree with his assessment and plan as above. Briefly, Mr. Clement is a 50yo male with history of HTN, HLP, ongoing tobacco use presenting with 2 days of chest pain - +SOB and diaphoresis, exertional at times. EKG with TWI in anterior leads and ST depressions Troponin =0.135 On exam he is afebrile, HD stable, NAD. No CP Skin - warm, dry, intac HEENT - NC/AT, PERRL, MMM, Neck supple Heart +S1/S2, regular Lungs - CTA Abd - +BS, soft, NT/ND Ex t- No edema Labs and images reviewed Assessment/Plan -Concern for ACS - EKG changes, elevated troponin, exertional nature of symptoms as well as patient risk factors -Heparin gtt -Trend troponin -Cardiology consultation appreciated -Remainder of plan as above Resident Activity Tracking Resident Involvement: Resident Care Provided Care Provided: Adult Hospital Medicine (1) COPD (chronic obstructive pulmonary disease) COPD type: unspecified COPD Qualified Code(s): J44.9 - Chronic obstructive pulmonary disease, unspecified
[2021-01-30] MEDS: HEPARIN SODIUM/DEXTROSE 25,000 UNITS/500 ML BAG IV SCH (22:31)
[2021-01-30] MEDS ORDERED: SUMAtriptan succinate 50 MG TAB PO PRN (23:28)
[2021-01-30] MEDS ORDERED: ONDANSETRON INJ 2 MG/ML 2 ML VIAL IV PRN (23:28)
[2021-01-30] MEDS ORDERED: ALUMINUM/MAGNESIUM SUSP 30 ML UDC PO PRN (23:28)
[2021-01-30] MEDS ORDERED: NITROGLYCERIN SL 0.4 MG/TAB TAB SL PRN (23:28)
[2021-01-30] MEDS ORDERED: ACETAMINOPHEN 325 MG TAB PO PRN (23:28)
[2021-01-30] MEDS ORDERED: POLYETHYLENE (MIRALAX) 17 GM PACK PO PRN (23:28)
[2021-01-30] MEDS ORDERED: MoRPHine SULFATE 2 MG/ML CARP IV PRN (23:28)
[2021-01-30] MEDS ORDERED: MELOXICAM 7.5 MG TAB PO PRN (23:28)
[2021-01-30] MEDS ORDERED: MIRTAZAPINE TAB 15 MG TAB PO PRN (23:28)
[2021-01-30] MEDS ORDERED: MAGNESIUM HYDROXIDE SUSP 30 ML UDC PO PRN (23:28)
[2021-01-31] MEDS: NICOTINE 21 MG/24 HR TDSY TD SCH ×2 (00:35→09:46)
--- NOTE | 2021-01-31 02:36 | Billing Data ---
Date of Service January 31, 2021 Coding Level of Care Code 32222 Initial Inpt Care Lvl 3
[2021-01-31 04:54] LABS: Basophils # (auto) 0.01 K/uL (0-0.2); Basophils % (auto) 0.1 %; Hematocrit (blood only) 56.6 % (42-52); Hemoglobin 18.4 g/dL (14.0-18.0); Immature Granulocytes # (auto) 0.04 K/uL (0.00-0.02); Immature Granulocytes % (auto) 0.5 %; Lymphocytes # (auto) 0.81 K/uL (1.2-3.4); Lymphocytes % (auto) 9.3 %; Mean Corpuscular Hemoglobin 31.2 pg (25-34); Mean Corpuscular Volume 96.1 fL (80-100); Mean Platelet Volume 10.8 fL (7.4-10.4); Monocytes # (auto) 0.08 K/uL (0.11-0.59); Monocytes % (auto) 0.9 %; Neutrophils # (auto) 7.73 K/uL (1.4-6.5); Neutrophils % (auto) 89.2 %; Platelet Count 144 K/uL (130-400); RDW Coefficient of Variation 13.7 % (11.5-14.5); RDW Standard Deviation 48.9 fL (36.4-46.3); Red Blood Count 5.89 M/uL (4.7-6.1); White Blood Count 8.67 K/uL (4.8-10.8)
[2021-01-31 04:55] LABS: Mean Corpuscular Hgb Conc 32.5 g/dL (32-36)
[2021-01-31 05:11] LABS: BUN Creatinine Ratio 10.6 (10-20); Calcium 8.3 mg/dl (8.5-10.1); Creatinine Clr Calc Pharmacy 125.6 ml/min; Est GFR (African American) 116.6 ml/min; Est GFR (Non-African American) 100.6 ml/min; Potassium 4.6 mmol/L (3.5-5.1)
[2021-01-31 05:12] LABS: Partial Thromboplastin Ratio 2.4
--- NOTE | 2021-01-31 07:26 | XRay Report ---
XR chest 1V portable CLINICAL HISTORY: Chest Pain COMPARISON STUDY: January 29, 2019 FINDINGS: No pneumothorax. No pleural effusion. Diffuse reticular nodular opacities are seen bilaterally, most prominent at bilateral lower lungs, no t significantly changed since prior could represent pulmonary edema or interstitial fibrosis. Cardiomediastinal silhouette is mildly enlarged. Osseous structures: unremarkable IMPRESSION: 1. Mildly enlarged cardiac silhouette. Chronic bilateral reticular nodular opacities which might rep resent pulmonary edema or mild interstitial fibrosis. ACT 112: Negative or not required by law. The above report was generated using voice recognition software. It may contain grammatical, syntax o r spelling errors. Electronically signed by: Becky Castro DO 01/31/2021 7:24 AM
[2021-01-31] MEDS: UMECLIDINIUM BROMIDE 62.5MCG/BLISTER 7 PUFFS/INHALER INH SCH (08:13)
[2021-01-31] MEDS: FLUTICASONE/VILANTEROL 100/25MCG 14 PUFFS/INHALER INH SCH (08:13)
[2021-01-31] MEDS: METOPROLOL SUCC 50MG EXT REL TAB PO SCH (08:14)
--- NOTE | 2021-01-31 08:40 | CT Scan Report ---
CT ANGIOGRAPHY OF THE CHEST, PULMONARY EMBOLUS PROTOCOL CLINICAL HISTORY: PE eval, +dimer COMPARISON STUDY: Chest CT January 29, 2019. Chest radiograph January 30, 2021. TECHNIQUE: Patient was premedicated for IV dye allergy as per protocol. Following IV administration o f 120 mL of Optiray, helical axial images of the chest were obtained utilizing the pulmonary embolus protocol. Maximal intensity projections and sagittal and coronal reformats were viewed on an [employer] 3D workstation. IV contrast was administered without complication. Automated exposure control was utilized for the study. A dose lowering technique was utilized adhering to the principles of ALA RA. CT DOSE: 1028.18 mGy.cm FINDINGS: No pulmonary emboli are identified although this exam is mildly compromised by respiratory motion. The size of the heart is normal. There is no thoracic aortic dissection. Right hilar lymph n odes have decreased in size since prior CT. Mild bronchial wall thickening is noted. Right lower lobe opacities favor atelectasis. There is no consolidation to suggest pneumonia. No pneumothorax or pleu ral effusion is noted. Hepatic steatosis is noted. IMPRESSION: 1. No pulmonary emboli identified although exam mildly compromised by respiratory motion. 2. Diffuse bronchial wall thickening. Right lower lobe airspace opacity which favors atelectasis. 3. Hepatic steatosis. ACT 112: Negative or not required by law. Electronically signed by: David Yu M.D. 01/31/2021 8:39 AM
[2021-01-31] MEDS ORDERED: NON-FORMULARY MEDICATION (Mometasone-Formoterol [Dulera] 200-5 mcg/actuation HFA aerosol i INH SCH (09:00)
[2021-01-31] MEDS ORDERED: ATORVASTATIN 40 MG TAB PO SCH (10:45)
[2021-01-31 10:51] LABS: Partial Thromboplastin Ratio 2.2
[2021-01-31 10:54] LABS: Partial Thromboplastin Time 57.2 Seconds (21.0-31.0)
[2021-01-31] MEDS: ASPIRIN 81 MG ECTAB PO SCH (11:10)
--- NOTE | 2021-01-31 11:35 | Hospitalist Progress Note ---
Date of Service January 31, 2021 Assessment & Plan (1) Chest pain: Plan: Simon Clement is a 50-year-old male with past medical history of COPD, hyperlipidemia, hypothyroidism, migraines, GERD, hypertension who was admitted to [facility] on 01/30 for chest pain - ACS rule-out. Exertional Chest Pain Patient with features concerning for typical chest pain/DE, admission EKG shows anterior lead T-wave inversions and ST depressions, Troponin peaked at .135 --> suspect myocardial ischemia/NSTEMI. - TTE showed EF 60-65% with normal LV systolic size/function but grade I diastolic dysfunction - Continue heparin gtt, adjust rate based on serial PTT - Cardiology consulted - appreciate recs regarding possible cardiac catheterization - started Aspirin 81mg PO daily and Atorvastatin 80mg PO daily - will hold off on LEIGHTON-I vs ARB at this point in time, but will likely start this during current hospitalization - A1c and Lipid profile pending Suspected COPD Greater than 20 pack year history, takes daily inhalers as prescribed but unsure if he has done PFTs in the past --> suspect COPD but requires further evaluation and treatment. - continue home Advair and Spiriva inhalers - continue supplemental O2 via NC to maintain SpO2 88-92% - consider outpatient pulmonary evaluation with PFTs and further evaluation for comorbid lung disease, given young age and severity of symptoms Erythrocytosis Hgb 18.7 --> 18.4, as well as elevated HCO2 of 35. Suspect undiagnosed ALFREDO. Requires further evaluation. - recommend outpatient sleep study Hypertension -Continue home Toprol XL 100 mg daily Insomnia -Continue home Mirtazapine 15mg PO QHS PRN FEN/GI: Heart-healthy DVT ppx: Heparin gtt CODE STATUS: Full code Dispo: med/surg with tele (2) COPD (chronic obstructive pulmonary disease): (3) Benign essential hypertension: (4) GERD (gastroesophageal reflux disease): (5) Chronic insomnia: Admission and Anticipated Discharge Date Admission Date: January 30, 2021 Supervising Physician Co-Signing Physician Notes I personally examined the patient and verified all bryant points of history and exam, discussed case, and agree with decision making with Dr Zazueta No new physical complaints. Just very overwhelmed. Very anxious with a sense of dread, worrying about what is going to happen, worrying about if his daughters (who have already lost their mother) will lose their father as well. Tried to explain diagnoses, plans, and the overall course that could lead to a better future, he expressed understanding but is just very overwhelmed. Vitals noted. General he is awake and alert no physical distress but emotionally is very stressed and tearful. HEENT normocephalic atraumatic mucous membranes moist. Breathing unlabored no accessory muscle use good effort. Skin shows no rashes no pallor or icterus. Neuro without focal deficits. NSTEMIfor cath tomorrow. Med management, secondary risk reduction. Respiratory issueshe only has about 20 pack years smoking history, making COPD not overwhelmingly likely to be the only thing at play. His body habitus and labs, as well as echocardiogram, all strongly suggest ALFREDO/OHS. Definitely will need sleep study in the near future. May even want to consider overnight pulse ox and a.m. blood gas. Situational anxietyprovided education, empathy, supportright now he is so overwhelmed that a short-term use of benzodiazepines, at least until heart cath, seems warranted. Morbid obesity with a BMI of 41.2this/his lifestyle seems to be driving all of the above. Started to discuss lifestyle change was an overall goal of being able to improve his health. Otherwise as above. Subjective No acute events overnight. Patient reports that his chest pain resolved overnight - he says there is very mild residual substernal chest soreness this morning but the pain is of different character than previously. He denies previous heart attacks. In regards to COPD, patient reports smoking 1ppd for more than 20 years and he currently smokes 1 ppd. He takes both inhalers daily as prescribed but has not used his nightly supplemental oxygen as prescribed. He has never had a sleep study or ALFREDO diagnosis before but does admit to feeling extremely tired throughout the day despite full nights of sleep. He lives alone and is unaware if he snores or has apneic episodes. Patient denies headache, vision changes, chest pain, palpitations, SOB, N/V, abdominal pain. Review of Systems Review of Systems: All systems reviewed & are unremarkable except as noted in Subjective Physical Exam Physical Exam: General: A&Ox3. NAD. Obese. Cooperative. 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 -wheezes, -rales, -rhonchi. Symmetrical chest rise. No increase work of breathing. No respiratory distress. Cardiac: RRR, -mrg. Radial pulses intact and symmetrical. No LE edema. Abdominal: soft, non-tender, non-distended, BS x 4 Results & Data Results & Data ([facility]) Vital Signs (Past 12 Hours) Vital Signs Temp Pulse Pulse Resp BP BP Pulse Ox 01/31/21 11:19 36.7 C 107 H 18 118/75 90 01/31/21 07:57 36.6 C 96 H 18 152/94 H 91 01/31/21 03:46 37 C 96 H 20 117/53 L 91 01/31/21 00:35 121/76 01/30/21 23:32 36.8 C 93 H 20 160/103 H 92 01/30/21 23:30 90 Resident Activity Tracking Resident Involvement: Resident Care Provided Care Provided: Adult Hospital Medicine (1) COPD (chronic obstructive pulmonary disease) COPD type: unspecified COPD Qualified Code(s): J44.9 - Chronic obstructive pulmonary disease, unspecified
--- NOTE | 2021-01-31 11:52 | Electrocardiogram Report ---
Test Reason : Blood Pressure : / mmHG Vent. Rate : 099 BPM Atrial Rate : 099 BPM P-R Int : 164 ms QRS Dur : 096 ms QT Int : 334 ms P-R-T Axes : 071 108 076 degrees QTc Int : 428 ms Poor data quality, interpretation may be adversely affected Normal sinus rhythm Left posterior fascicular block Abnormal ECG When compared with ECG of 31-JAN-2019 08:23, ST now depressed in Anterior leads T wave inversion more evident in Anterior leads Consider new anterolateral ischemia Confirmed by Parker Terna ([id number]) on 01/31/2021 11:51:51 AM Referred By: REFERRED SELF Confirmed By:Parker Teran
[2021-01-31] MEDS: HEPARIN SODIUM/DEXTROSE 25,000 UNITS/500 ML BAG IV SCH (14:00)
--- NOTE | 2021-01-31 14:06 | Cardiology Consultation ---
Date of Consultation January 31, 2021 History of Present Illness Reason for Consultation: Non-ST elevation myocardial infarction Requesting Physician: Meka Attending Physician: Blake Ackerman, DO History of Present Illness The patient has noted progressive chest tightness and chest pressure along with arm heaviness with activity over the last 3 weeks. Its been more progressive even the last 2 weeks. Just climbing 10 steps or walking to the car he notes heaviness in his chest. 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 His symptoms progressed which is why he came to the emergency room was first troponin is elevated his EKG suggests anterior lateral ischemia. He is currently pain-free on a heparin drip. He denies any lightheadedness or dizziness presyncope syncope he denies any lower extremity edema. He denies snoring but he notes he wakes up not feeling well rested and falls asleep easily during the day. He has no plans for upcoming surgery or tooth extraction. He was to be scheduled for a colonoscopy which will now need to be put on hold. He denies any bleeding bruising dark stools or black stools. He does have a chronic cough consistent with bronchitis. Unfortunately he is smoking a pack per day and has done this for 30+ years. He is also consuming a sixpack of beer on a daily basis and has done this for years intermittently stopping. Allergies Allergy/AdvReac Type Severity Reaction Status Date / Time mushroom Allergy Intermediate SWELLING Verified 01/30/21 21:13 OF NECK shellfish derived Allergy Intermediate REDNESS & Verified 01/30/21 21:13 SWELLING OF NECK iodine Allergy Unknown Unknown Verified 01/30/21 21:13 Sulfa (Sulfonamide Allergy Unknown Unknown Verified 01/30/21 21:13 Antibiotics) prednisone AdvReac Unknown Unknown Verified 01/30/21 21:13 seafood Allergy Unknown Unknown Uncoded 01/30/21 21:13 Home Medications Medication Instructions Recorded Confirmed Type sumatriptan succinate 50 mg tablet See Rx Instructions PO .COMPLEX #9 01/13/20 01/30/21 Rx tab meloxicam 15 mg tablet 15 mg PO DAILY PRN #30 tab 02/17/20 01/30/21 Rx mometasone-formoterol HFA 200 2 puff INHALATION BID #13 g 10/21/20 01/30/21 Rx mcg-5 mcg/actuation aerosol inhaler (Dulera) tiotropium bromide 1.25 2 puff INH DAILY #4 gm 10/21/20 01/30/21 Rx mcg/actuation mist for inhalation (Spiriva Respimat) metoprolol succinate 100 mg 100 mg PO DAILY #90 tab 11/26/20 01/30/21 Rx tablet,extended release 24 hr fluticasone 250 mcg-salmeterol 50 1 inh INHALATION BID 01/30/21 01/30/21 History mcg/dose blistr powdr for inhalation (Advair Diskus) mirtazapine 15 mg tablet 15 mg PO HS PRN 01/30/21 01/30/21 History Patient History Medical History Abnormal weight gain Acute bronchitis Acute exacerbation of chronic obstructive pulmonary disease (COPD) Acute respiratory failure with hypoxia Adenoma of colon Alcohol dependence Annual physical exam Cervicalgia Chest pain Elevated troponin Hearing loss Prostate cancer screening Right wrist tendonitis Surgical History H/O eye surgery H/O hand surgery History of hernia repair History of oral surgery Retinal detachment S/P small bowel resection Family History Mother Heart disease Social History Smoking Status: Current every day smoker Tobacco Type: Cigarettes Cigarettes Per Day: 20; Do You Dip or Chew Tobacco: No; Tobacco Cessation Education Requested by Patient: No Hx Alcohol Use: Yes Alcohol type: beer Hx Substance Use: Yes Last Used Substance: Days (ago) Last Used Substance Other:: Last was 10 days ago Preferred Language: Ukrainian Communication Ability: Effective Communication Ability Comment: Right eye blind Administrative Medical Director Required: No Beliefs That Will Affect Care: None marital status: Single Current Living Situation: Alone Other Information That Helps Us Care for You: No Feels Safe at Home: Yes Safety Concerns: Feels Safe At This Time Assistive Devices: None Results & Data ([facility]) Vital Signs (Past 12 Hours) Vital Signs Temp Pulse Pulse Resp BP Pulse Ox 01/31/21 11:19 36.7 C 107 H 18 118/75 90 01/31/21 09:00 94 H 01/31/21 07:57 36.6 C 96 H 18 152/94 H 91 01/31/21 03:46 37 C 96 H 20 117/53 L 91 he is awake alert and oriented x3 he looks older than his stated age he is morbidly obese HEENT: 2+ carotid upstrokes no evidence of carotid bruits Lungs: Globally decreased breath sounds no rales rhonchi or wheezing Heart: Regular rate and rhythm no appreciable murmurs rubs or gallops Abdomen: Soft nontender distended obese positive bowel sounds Extremities: no clubbing cyanosis or edema Psychiatric: His affect appeared appropriate His echocardiogram EKG and laboratory studies were reviewed Impressions: 1. NON-ST elevation myocardial infarction non-ST ovation Patient with features concerning for typical chest pain/[place], admission EKG shows anterior lead T-wave inversions and ST depressions, Troponin peaked at .135 --> suspect myocardial ischemia/NSTEMI. - TTE showed EF 60-65% with normal LV systolic size/function but grade I diastolic dysfunction - Continue heparin gtt, adjust rate based on serial PTT - started Aspirin 81mg PO daily and Crestor 10 mg PO daily - will hold off on LEIGHTON-I vs ARB at this point in time, but will start this during current hospitalization I discussed with him that I would recommend cardiac catheterization given his progressive anginal symptoms. Discussed the risk and benefits of cardiac catheterization risks including but not limited to bleeding or infection of the puncture site damage to his radial or femoral artery. Risk of contrast-induced nephropathy. Allergic reaction to contrast. 1,000 risk of heart attack stroke or dying with the procedure were discussed. He wishes to proceed. As long as he remains stable and pain-free we will plan for catheterization tomorrow (Monday) He has an iodine allergy but he received methylprednisolone in the ER prior to his CT angiogram of his chest yesterday and did okay. There is also an allergy to prednisone but he again he tolerated methylprednisolone. I will discuss with Dr. Acuña the need to give him methylprednisolone IV prior to his catheteri zation. All this was discussed with Dr. Ackerman Suspected COPD Greater than 20 pack year history, takes daily inhalers as prescribed but unsure if he has done PFTs in the past --> suspect COPD but requires further evaluation and treatment. - continue home Advair and Spiriva inhalers - consider outpatient pulmonary evaluation with PFTs and further evaluation for comorbid lung disease, given young age and severity of symptoms Erythrocytosis Hgb 18.7 --> 18.4, as well as elevated HCO2 of 35. Suspect undiagnosed ALFREDO and obesity hypoventilation syndrome. - recommend outpatient sleep study Hypertension -Continue home Toprol XL 100 mg daily Insomnia -Continue home Mirtazapine 15mg PO QHS PRN
[2021-01-31] MEDS ORDERED: LORazepam 0.5 MG/1 ML VIAL IV STA (14:47)
[2021-01-31] MEDS ORDERED: LORazepam 0.5 MG TAB PO PRN (14:47)
[2021-01-31] MEDS: ROSUVASTATIN CALCIUM 10 MG TAB PO SCH (17:15)
--- NOTE | 2021-01-31 19:16 | Billing Data ---
Date of Service January 31, 2021 Coding Level of Care Code 04402 Subseq Hosp Care Lvl 3
[2021-01-31] MEDS ORDERED: Nursing to Pharmacy Communication SCH (23:45)
[2021-02-01] MEDS ORDERED: ALBUTEROL HFA 8 GM INHALER INH PRN ×2 (04:32→07:00)
[2021-02-01] MEDS: HEPARIN SODIUM/DEXTROSE 25,000 UNITS/500 ML BAG IV SCH (05:53)
[2021-02-01 07:36] LABS: Basophils # (auto) 0.02 K/uL (0-0.2); Basophils % (auto) 0.2 %; Eosinophils % (auto) 1.1 %; Hematocrit (blood only) 52.6 % (42-52); Hemoglobin 16.8 g/dL (14.0-18.0); Immature Granulocytes # (auto) 0.02 K/uL (0.00-0.02); Immature Granulocytes % (auto) 0.2 %; Lymphocytes # (auto) 2.38 K/uL (1.2-3.4); Lymphocytes % (auto) 26.1 %; Mean Corpuscular Hemoglobin 30.8 pg (25-34); Mean Corpuscular Hgb Conc 31.9 g/dL (32-36); Mean Corpuscular Volume 96.3 fL (80-100); Mean Platelet Volume 10.6 fL (7.4-10.4); Monocytes # (auto) 0.86 K/uL (0.11-0.59); Monocytes % (auto) 9.4 %; Neutrophils # (auto) 5.74 K/uL (1.4-6.5); Platelet Count 135 K/uL (130-400); RDW Coefficient of Variation 13.8 % (11.5-14.5); RDW Standard Deviation 48.4 fL (36.4-46.3); Red Blood Count 5.46 M/uL (4.7-6.1); White Blood Count 9.12 K/uL (4.8-10.8)
[2021-02-01 07:40] LABS: Estimated Average Glucose 169 mg/dl; Hemoglobin A1C 7.5 % (4.5-5.6)
[2021-02-01 07:44] LABS: Base Excess ABG 7.8 mEq/L (-9-1.8); HCO3 ABG 37 mmol/L (19-24); Oxygen Saturation ABG 94.6 % (90-95); PCO2 ABG 68 mmHg (35-46); PO2 ABG 74 mmHg (80-95); pH ABG 7.35 (7.35-7.45)
[2021-02-01 07:49] LABS: Allen Test Pos (Pos)
[2021-02-01 07:58] LABS: Partial Thromboplastin Ratio 1.9
[2021-02-01 08:37] LABS: BUN Creatinine Ratio 14.7 (10-20); Calcium 8.4 mg/dl (8.5-10.1); Creatinine Clr Calc Pharmacy 135.5 ml/min; Est GFR (African American) 120.7 ml/min; Est GFR (Non-African American) 104.2 ml/min; Magnesium 2.3 mg/dl (1.8-2.4); Phosphorus 3.1 mg/dl (2.5-4.9); Potassium 3.8 mmol/L (3.5-5.1)
--- NOTE | 2021-02-01 08:38 | Cardiology Progress Note ---
Date of Service February 01, 2021 Assessment & Plan (1) Chest pain: Plan: Impressions: 1. NON-ST elevation myocardial infarction non-ST ovation Patient with features concerning for typical chest pain/[place], admission EKG shows anterior lead T-wave inversions and ST depressions, Troponin peaked at .135 --> suspect myocardial ischemia/NSTEMI. - TTE showed EF 60-65% with normal LV systolic size/function but grade I diastolic dysfunction - Continue heparin gtt - initiated on Aspirin 81mg PO daily and Crestor 10 mg PO daily this admission - will need to start LEIGHTON/ARB before discharge - Cardiac cath this am Mr. Clement has an iodine allergy. He tolerated his CTA with a dose of solu medrol well. Plan is for him to receive another dose in the dental laboratory manager from Dr. Acuña just prior to his procedure. Suspected COPD Greater than 20 pack year history, takes daily inhalers as prescribed but unsure if he has done PFTs in the past --> suspect COPD but requires further evaluation and treatment. - continue home Advair and Spiriva inhalers - consider outpatient pulmonary evaluation with PFTs and further evaluation for comorbid lung disease, given young age and severity of symptoms - overnight pulse ox with sats as low as the 70s. Currently requiring 2L - smoking cessation discussed and patient is interested - may need script for nicotine patches at discharge. Erythrocytosis Hgb 18.7 --> 18.4, as well as elevated HCO2 of 35. ABG with pCO2 of 68 - may be combination of undiagnosed ALFREDO, obesity hypoventilation syndrome, and COPD resulting in CO2 retention - recommend outpatient sleep study Hypertension -Continue home Toprol XL 100 mg daily Insomnia -Continue home Mirtazapine 15mg PO QHS PRN Admission and Anticipated Discharge Date Admission Date: January 30, 2021 Subjective Mr. Clement is feeling very anxious about his cath this morning. He did have some sob and took his rescue inhaler which only helped a little. No chest pain. SR on the monitor. Review of Systems Review of Systems: All systems reviewed & are unremarkable except as noted in HPI & below Physical Exam Constitutional: WD/WN, vitals as above Respiratory: Auscultation: + diminished lung sounds (lungs are tight - reduced air movement) and + wheezes Cardiovascular: RRR, no murmur, no edema Skin: no rashes, warm and dry Neurologic: moves all extremities and awake Psychiatric: Orientation: alert and oriented x 3 Mood: + anxious mood Results & Data ([facility]) Vital Signs (Past 12 Hours) Vital Signs Temp Pulse Pulse Pulse Resp BP BP 02/01/21 08:16 101 H 02/01/21 08:12 36.7 C 101 H 20 145/91 H 02/01/21 04:06 37 C 101 H 20 131/84 02/01/21 00:10 105 H 01/31/21 22:35 36.8 C 103 H 18 114/64 01/31/21 22:26 103 H 01/31/21 21:19 107 H Pulse Ox Pulse Ox 02/01/21 08:16 02/01/21 08:12 93 02/01/21 04:06 91 02/01/21 00:10 95 01/31/21 22:35 90 01/31/21 22:26 01/31/21 21:19 89 L
[2021-02-01] MEDS: NICOTINE 21 MG/24 HR TDSY TD SCH (09:00)
[2021-02-01] MEDS: METOPROLOL SUCC 50MG EXT REL TAB PO SCH (09:00)
[2021-02-01] MEDS: ASPIRIN 81 MG ECTAB PO SCH (09:00)
[2021-02-01] MEDS: FLUTICASONE/VILANTEROL 100/25MCG 14 PUFFS/INHALER INH SCH (09:02)
[2021-02-01] MEDS: ROSUVASTATIN CALCIUM 10 MG TAB PO SCH (09:03)
[2021-02-01] MEDS: UMECLIDINIUM BROMIDE 62.5MCG/BLISTER 7 PUFFS/INHALER INH SCH (09:03)
[2021-02-01] MEDS ORDERED: HEPARIN (PORCINE) 1000 UNIT/ML 10 ML (CATH LAB USE ONLY) ONE (10:14)
[2021-02-01] MEDS ORDERED: MIDAZOLAM HCL 1 MG/ML 2ML VIAL ONE (10:14)
[2021-02-01] MEDS ORDERED: niCARdipine HCL INJ 2.5 MG/ML 10 ML AMP ONE (10:14)
[2021-02-01] MEDS ORDERED: fentaNYL citrate 100 MCG/2 ML VIAL ONE (10:14)
[2021-02-01] MEDS ORDERED: NITROGLYCERIN/D5W 100MCG/ML 20ML SYR ONE (10:14)
[2021-02-01] MEDS ORDERED: methylPREDNISolone 125 MG/2 ML VIAL ONE (10:16)
[2021-02-01] MEDS ORDERED: diphenhydrAMINE 50 MG/ML VIAL ONE (10:16)
--- NOTE | 2021-02-01 10:41 | Hospitalist Progress Note ---
Date of Service February 01, 2021 Assessment & Plan (1) Chest pain: Plan: Simon Clement is a 50-year-old male with past medical history of COPD, hyperlipidemia, hypothyroidism, migraines, GERD, hypertension who was admitted to [facility] on 01/30 for chest pain - found to have NSTEMI and scheduled for heart catheterization today. NSTEMI Patient with features concerning for typical chest pain/VT, admission EKG shows anterior lead T-wave inversions and ST depressions, Troponin peaked at .135 --> NSTEMI. - TTE showed EF 60-65% with normal LV systolic size/function but grade I diastolic dysfunction - Continue heparin gtt, adjust rate based on serial PTT - Cardiology consulted - appreciate recs regarding cardiac catheterization later this morning - continue Aspirin 81mg PO daily and Rosuvastatin 10mg PO daily - will hold off on LEIGHTON-I vs ARB at this point in time, but will likely start this during current hospitalization T2DM New diagnosis. A1c 7.5 on 01/31. - BSG mostly <200 during current hospitalization - plan to start Metformin 500mg PO daily on discharge - f/u with PCP after discharge for further eval/management Chronic Dyspnea Multifactorial. Greater than 20 pack year history, takes daily inhalers as prescribed but unsure if he has done PFTs in the past --> suspect underlying COPD but requires further evaluation and treatment. Also suspect OHS/ALFREDO based on history of daytime sleepiness, obese body habitus, and right ventricular dilation per TTE. - Hypercapnia per ABG this AM (CO2 68) and desaturation to 83% last night while resting/sleeping - supports OHS/ALFREDO - added BiPAP QHS for suspected OHS/ALFREDO - continue home Advair and Spiriva inhalers - continue supplemental O2 via NC while awake, to maintain SpO2 88-92% - patient will require sleep study as outpatient - consider outpatient pulmonary evaluation with PFTs and further evaluation for comorbid lung disease, given young age and severity of symptoms Erythrocytosis Hgb 18.7, as well as elevated HCO3 of 35. Suspect undiagnosed ALFREDO. Requires further evaluation. - recommend outpatient sleep study as stated above Hypertension - Continue home Toprol XL 100 mg daily Insomnia - Continue home Mirtazapine 15mg PO QHS PRN FEN/GI: NPO pending cath this AM DVT ppx: Heparin gtt CODE STATUS: Full code Dispo: med/surg with tele (2) COPD (chronic obstructive pulmonary disease): (3) Benign essential hypertension: (4) GERD (gastroesophageal reflux disease): (5) Chronic insomnia: Admission and Anticipated Discharge Date Admission Date: January 30, 2021 Subjective Patient received Ativan 0.5mg IV yesterday afternoon and yesterday late evening for anxiety associated with heart cath this morning. Patient reports that he still has a faint dull aching in substernal region which has been persistent since yesterday but not worse. Denies overt chest pain, palpitations, syncope, near-syncope, diaphoresis, dizziness/lightheadedness. Denies SOB while on 2L NC. Review of Systems Review of Systems: All systems reviewed & are unremarkable except as noted in Subjective Physical Exam Physical Exam: General: A&Ox3. NAD. Obese. Cooperative. 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 -wheezes, -rales, -rhonchi. Symmetrical chest rise. No increase work of breathing. No respiratory distress. Cardiac: RRR, -mrg. Radial pulses intact and symmetrical. No LE edema. Abdominal: soft, non-tender, non-distended, BS x 4 Skin: warm, dry, no rash Results & Data Results & Data ([facility]) Vital Signs (Past 12 Hours) Vital Signs Temp Pulse Pulse Pulse Resp BP BP 02/01/21 10:11 88 18 147/101 H 02/01/21 08:16 101 H 02/01/21 08:12 36.7 C 101 H 20 145/91 H 02/01/21 04:06 37 C 101 H 20 131/84 02/01/21 00:10 105 H 01/31/21 22:35 36.8 C 103 H 18 114/64 Pulse Ox Pulse Ox 02/01/21 10:11 97 02/01/21 08:16 02/01/21 08:12 93 02/01/21 04:06 91 02/01/21 00:10 95 01/31/21 22:35 90 Resident Activity Tracking Resident Involvement: Resident Care Provided Care Provided: Adult Hospital Medicine (1) COPD (chronic obstructive pulmonary disease) COPD type: unspecified COPD Qualified Code(s): J44.9 - Chronic obstructive pulmonary disease, unspecified
--- NOTE | 2021-02-01 11:10 | Pre Anesthesia Assessment ---
Date of Service February 01, 2021 Pre Sedation Assessment Vital Signs Temp Pulse Pulse Pulse Pulse Resp BP 02/01/21 10:11 88 18 147/101 H 02/01/21 08:16 101 H 02/01/21 08:12 98.1 F 101 H 20 145/91 H 02/01/21 04:06 98.6 F 101 H 20 131/84 02/01/21 00:10 105 H 01/31/21 22:35 98.2 F 103 H 18 01/31/21 22:26 103 H 01/31/21 21:19 107 H 01/31/21 20:14 97.3 F L 101 H 20 01/31/21 19:18 106 H 01/31/21 15:48 108 H 01/31/21 15:43 97.7 F 112 H 18 143/64 H 01/31/21 11:19 98.1 F 107 H 18 118/75 BP Pulse Ox Pulse Ox 02/01/21 10:11 97 02/01/21 08:16 02/01/21 08:12 93 02/01/21 04:06 91 02/01/21 00:10 95 01/31/21 22:35 114/64 90 01/31/21 22:26 01/31/21 21:19 89 L 01/31/21 20:14 109/58 L 89 L 01/31/21 19:18 83 L 01/31/21 15:48 01/31/21 15:43 92 01/31/21 11:19 90 Cardiovascular RRR, no murmur, no edema Respiratory normal respiratory effort, lungs clear to auscultation Pre-Sedation Airway Assessment Smoking Status: Current every day smoker Hx Sleep Apnea: No Hx Difficult Intubation: No Short, Thick Neck: No Thyromental Distance: > or= 3.5 Finger Breadths Oral Cavity: + WNL Mallampati Class: III ASA: ASA2 NPO Status Date of Last Intake of Fluids: 02/01/21 Time of Last Intake of Fluids: 07:00 Date of Last Intake of Solid Food: 01/31/21 Time of Last Intake of Solid Foods: 20:00 Procedure Planning Contraindications for Sedation: none Current Medications Reviewed: Yes Notes The planned sedation has been discussed with the patient. Informed Consent was obtained. I have identified the patient, determined the appropriateness of sedation and have assessed the patient immediately prior to the procedure. All medicine(s) and interventions are by my order.
--- NOTE | 2021-02-01 11:11 | Post Anesthesia Assessment ---
Date of Service February 01, 2021 Post Sedation Assessment Vital Signs Temp Pulse Pulse Pulse Pulse Resp BP 02/01/21 10:11 88 18 147/101 H 02/01/21 08:16 101 H 02/01/21 08:12 98.1 F 101 H 20 145/91 H 02/01/21 04:06 98.6 F 101 H 20 131/84 02/01/21 00:10 105 H 01/31/21 22:35 98.2 F 103 H 18 01/31/21 22:26 103 H 01/31/21 21:19 107 H 01/31/21 20:14 97.3 F L 101 H 20 01/31/21 19:18 106 H 01/31/21 15:48 108 H 01/31/21 15:43 97.7 F 112 H 18 143/64 H 01/31/21 11:19 98.1 F 107 H 18 118/75 BP Pulse Ox Pulse Ox 02/01/21 10:11 97 02/01/21 08:16 02/01/21 08:12 93 02/01/21 04:06 91 02/01/21 00:10 95 01/31/21 22:35 114/64 90 01/31/21 22:26 01/31/21 21:19 89 L 01/31/21 20:14 109/58 L 89 L 01/31/21 19:18 83 L 01/31/21 15:48 01/31/21 15:43 92 01/31/21 11:19 90 Recovery Score Activity: Moves 4 extremities Respiration: Deep Breath/Cough Circulation: +/-20% PreAnes Value Consciousness: Fully Awake Oxygen Saturation: O2 needed for >90% Discharge Sedation Level of Care: Fast Track Phase II Post Sedation Plan On clinical assessment, the patient appears to have tolerated the sedation without complications. Patient is recovering as anticipated. Patient will continue to be monitored by nursing and may be discharged when sedation discharge criteria are met per below protocol. Upon Completions of procedure up to 15 minutes continue every 5 minute vital signs and the P.A.R. score; then discharge to a Phase I or Fast Track to Phase II per the following guidelines: * Discharge Patient to appropriate Phase II area if PAR is 8 or greater or return to pre- procedure baseline. The post - procedure orders will be as directed. * If PAR score is less than 8 or not return to pre-procedure baseline then patient will follow Phase I monitoring till PAR is reached for Phase II. The Phase I may be done in procedure room or may call to secure a Phase I area. * If naloxone or flumazenil are used for reversal, hold in Phase I for continued monitoring from when last reversal dose was given for a minimum of 6 0 minutes or longer pending the nurse and/or physician discretion of patient condition before discharge to Phase II. Please call the Sedation Physician to re-evaluate and complete post-note for discharge to Phase II area. Do NOT discharge from procedure sedation or Phase 1 until post- sedation evaluation note is complete by procedure /sedation MD Sedation Discharge Instructions to be given to the patient at discharge to home.
--- NOTE | 2021-02-01 11:18 | Cardiac Catheterization ---
[facility] Data: [employer] Cardiac Status Clinical evaluation leading to the procedure CAD Presenation: Non STEMI Anginal Classification: CCS IV Heart Failure: No Cardiogenic Shock within 24 Hours: No Cardiac Arrest within 24 Hours: No Imaging Studies Past 6 Months: Yes Stress Studies Past 6 Months: No Diagnostic Physicians Name: Micheal Acuña MD Status: Elective Closure Device Percutaneous Entry Location: Radial Closure Device: Radial Band Recommendations: Medical Therapy and/or Counseling Intraprocedure Events Significant Disection: No Perforation: No Cardiac Cath Procedure Full Procedure Date February 01, 2021 Pre-Procedure Diagnosis Pre-Procedure Diagnosis: Non STEMI AUC Score AUC Score: 8 Post-Procedure Diagnosis Post-Procedure Diagnosis: Normal Coronary Arteries and Normal Intracardiac Pressures Procedure(s) Performed Procedure(s) Performed: Coronary Angiography and Left Heart Cath Dining Room Manager Micheal Acuña MD Bellstand Attendant(s) [place] Estimated Blood Loss Estimated Blood Loss: 5 Medication(s) Medication(s): Fentanyl, Heparin, Lidocaine 1%, Nicardipine, Nitroglycerin and Versed Summary of Findings Indication: NSTEMI Access: 6 Fr right radial artery Catheters: [place] Findings: LM -Short, almost separate ostium. No significant disease LAD -medium caliber, distal vessel wraps around apex. No significant disease. Circumflex -codominant, large caliber vessel, no significant disease. RCA -codominant, medium caliber, no significant disease LVEDP -18 Arterial Closure: TR band Summary: 1. Angiographically normal coronary arteries 2. Borderline intracardiac filling pressure Recommendations: No high risk CAD. Possible ECG changes/troponin secondary to myocarditis. Less likely coronary vasospasm/transient occlusion. Can discontinue heparin infusion Further evaluation for noncardiac causes of chest pain per primary team. From a procedure standpoint okay for discharge later today post TR band care. Hemodynamics Rest Ao:: 122/53/77 Final Ao: 148/62/90 LV: 146/18 Recommendations Recommendations: Medical Therapy and/or Counseling Specimens Specimens: None Radiation Exposure (mGy) 811 Contrast (mls) 50 Fluids (cc crystalloids) Fluids (cc crystalloids): 50 Drains Drains: None Anesthesia Moderate [id number] Procedural Complication(s) None Disposition PCU I attest to the content of the Intraoperative Record and any orders documented therein. Any exceptions are noted below. [employer] Card Cath Procedure Codes Cardiac Catheterization Procedure 1: Cardiovascular Cath Procedures: 62414 Coronaries and LHC (+/-LV) Moderate Sedation Procedure 1: Sedation/Anesthesia: 67958 Mod Sedation by the same physician;Init15 Min Child Age 5 & Up PG Care Time/CCT Total # of Minutes Spent Total Time Spent with Patient: Total time spent is greater than 50% in coordination of care (as documented) at patient's floor/unit and/or counseling patient:
[2021-02-01] MEDS ORDERED: SODIUM CHLORIDE 0.9% 1000ML 1,000 ML IV SCH (11:30)
--- NOTE | 2021-02-01 12:39 | Discharge Summary ---
Date of Service February 01, 2021 Admission HPI Per Admitting Provider Simon Clement is a 50-year-old male with past medical history of COPD, hyperlipidemia, hypothyroidism, migraines, GERD, hypertension; who presented to the ED for concerns of chest pain has been ongoing for last 2 days. First noticed it early in the morning 2 days ago, and was associated with some shortness of breath, and sweating. Initially did not think much of it, however as it continued over the last 2 days and worsen earlier today he realized he should probably have this looked at. Over this time, he did notice some increased discomfort with exertion. Did not notice any changes or discomfort with eating. Did not have any associated nausea, or vomiting. Occasionally will get some kind of chest pains that are relatively dissimilar to this, which he attributes to his COPD, as he knows he is supposed to be wearing oxygen but does not do so on a regular basis. Upon presentation to the ED patient was continuing to have this chest pain, subsequently alleviated with sublingual nitroglycerin and aspirin. Continues to note a small amount of substernal chest pain, that has not gone away. This current pain does not travel or move anywhere outside of that area. Admission Exam Per Admitting Provider Constitutional: WD/WN, vitals as above Eyes: PERRL, conjunctivae normal, anicteric sclerae Respiratory: normal respiratory effort; no respiratory distress, no labored breathing and does not use accessory muscles Auscultation: + wheezes; no crackles, no rales and no rhonchi Cardiovascular: Rate/Rhythm: regular rate and regular rhythm Heart Sounds: no gallop, no murmur and no cardiac rub Vessels: normal peripheral pulses; no JVD Extremities: no edema Gastrointestinal (Abdomen): Inspection/Auscultation: normal bowel sounds; abdomen not distended Percussion/Palpation: abdomen soft; abdomen nontender and no guarding Musculoskeletal: no cyanosis or clubbing, extremities motor strength 5/5 Skin: no rashes, warm and dry Neurologic: PERRL, EOMI, accommodation nl, no face palsy, no dysarthria CN's II-XI intact bilaterally and moves all extremities Psychiatric: Orientation: alert and oriented x 3 Principal Diagnosis Type II NSTEMI Discharge Exam General: A&Ox3. NAD. Obese. Cooperative. 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 -wheezes, -rales, -rhonchi. Symmetrical chest rise. No increase work of breathing. No respiratory distress. Cardiac: RRR, -mrg. Radial pulses intact and symmetrical. No LE edema. Abdominal: soft, non-tender, non-distended, BS x 4 Skin: warm, dry, no rash Discharge Data Allergies Allergy/AdvReac Type Severity Reaction Status Date / Time mushroom Allergy Intermediate SWELLING Verified 01/30/21 21:13 OF NECK shellfish derived Allergy Intermediate REDNESS & Verified 01/30/21 21:13 SWELLING OF NECK iodine Allergy Unknown Unknown Verified 01/30/21 21:13 Sulfa (Sulfonamide Allergy Unknown Unknown Verified 01/30/21 21:13 Antibiotics) prednisone AdvReac Unknown Unknown Verified 01/30/21 21:13 seafood Allergy Unknown Unknown Uncoded 01/30/21 21:13 Consultations 01/30/21 21:45 ED Decision to Admit Stat 01/31/21 02:28 Consult Cardiology Routine 01/31/21 13:55 Consult Cardiac Catheterization Routine Procedures Performed Operation Date: 02/01/21 09:30 Actual Procedures p Cath, Left with Cors and Vent - Víctor Acuña MD s Cineradiography w/Routine Exam - Víctor Acuña MD Ordered Studies 01/30/21 21:43 CT angio chest PE protocol Urgent 02/01/21 06:43 CL Cath Imgs for PACS use only Routine Hospital Course (1) Chest pain: Simon Clement is a 50-year-old male with past medical history of COPD, hyperlipidemia, hypothyroidism, migraines, GERD, hypertension who was admitted to [facility] from 01/30 - 02/01 for exertional chest pain. Type II NC Patient with features concerning for typical chest pain/NC, admission EKG shows anterior lead T-wave inversions and ST depressions, Troponin peaked at .135, cardiac catheterization on 02/01 without evidence for CAD. - was placed on Heparin gtt in preparation for cath, which was stopped after procedure - ASCVD 26.8% 10-yr risk: started Rosuvastatin 10mg PO daily, continue after discharge T2DM New diagnosis. A1c 7.5 on 01/31. - BSG mostly <200 during current hospitalization - start Metformin 500mg PO daily on discharge - f/u with PCP after discharge for further eval/management Chronic Dyspnea with nocturnal hypoxia and Hypercapnia on ABG Multifactorial. Greater than 20 pack year history, takes daily inhalers as prescribed but unsure if he has done PFTs in the past --> suspect underlying COPD but requires further evaluation and treatment. Also suspect OHS/ALFREDO based on history of daytime sleepiness, obese body habitus, and right ventricular dilation per TTE. - Hypercapnia per ABG (CO2 68) and desaturation to 83% last night while resting/sleeping - supports OHS/ALFREDO - continue home Advair and Spiriva inhalers - continue supplemental O2 via NC while awake, to maintain SpO2 88-92% - patient will require sleep study as outpatient - consider outpatient pulmonary evaluation with PFTs and further evaluation for comorbid lung disease, given young age and severity of symptoms Erythrocytosis Hgb 18.7, as well as elevated HCO3 of 35. Suspect undiagnosed ALFREDO. Requires further evaluation. - recommend outpatient sleep study as stated above Hypertension - Continue home Toprol XL 100 mg daily Insomnia - Continue home Mirtazapine 15mg PO QHS PRN (2) COPD (chronic obstructive pulmonary disease): (3) Benign essential hypertension: (4) GERD (gastroesophageal reflux disease): (5) Chronic insomnia: Total Time Total Time Spent Total Time Spent (In Minutes): 40 minutes Discharge Plan Discharge Items Patient Disposition: Home - Self-Care Reason For Visit: CHEST PAIN Discharge Diagnosis: Type II NSTEMI Activity: Per Instructions section Non-emergency contact: Primary Care Provider and Ethnographer Call non-emergency contact if: you have any medication questions Follow-up/Referrals: Jeanmarie Bhakta MD [Physician] - (please schedule follow up for patient in 2 weeks) Ari Ferrera MD [Primary Care Provider] - 02/08/21 2:30 pm (Please follow up with Dr. Ferrera on Monday02/08/21 at 2:30 pm. Please arrive to the office at 2:15 pm for your appointment. If you are unable to keep this appointment, please call the office to reschedule at [phone].) Diet: Carb Consistent or DM2 Addtl Attending Provider Instructions: You were admitted to [facility] from 01/30 - 02/01 for chest pain. You underwent significant evaluation, which included a heart catheterization, that thankfully did not show signs of a heart attack or blockages in heart blood vessels. However, you have a new diagnosis of Type II Diabetes based on blood tests in the hospital. You will be discharged in improved, stable condition on 02/01. You will take the following new medications, which were sent to your [facility]: 1. Rosuvastatin (Crestor) 10mg, once per day - this is to help control your cholesterol and to decrease the chance of having a heart attack 2. Metformin 500mg, once per day - this will help to treat your newly diagnosed Type 2 Diabetes You should make sure to use your nightly supplemental oxygen every night. You should also continue all of your scheduled home medications and inhalers. You will likely need to get a sleep study to evaluate for sleep apnea, and you will likely need to have PFT testing done to evaluate your COPD. Your PCP can help to arrange this. We recommend that you speak to your PCP about smoking cessation and healthy weight loss. Pending Studies at Discharge: No Stand-Alone Forms: My [facility], Smoking Cessation Medications and DC Order Prescriptions: New rosuvastatin 10 mg tablet 10 mg PO DAILY Qty: 30 RF: 1 metformin 500 mg tablet 500 mg PO DAILY Qty: 30 RF: 1 Continued metoprolol succinate 100 mg tablet extended release 24 hr 100 mg PO DAILY Qty: 90 RF: 3 sumatriptan succinate 50 mg tablet See Rx Instructions PO .COMPLEX Qty: 9 RF: 5 Spiriva Respimat 1.25 mcg/actuation mist 2 puff INH DAILY Qty: 4 RF: 11 Dulera 200-5 mcg/actuation HFA aerosol inhaler 2 puff inhalation BID Qty: 13 RF: 11 meloxicam 15 mg tablet 15 mg PO DAILY PRN (Reason: pain) Qty: 30 RF: 11 fluticasone propion-salmeterol [Advair Diskus] 250-50 mcg/dose Blister With Device 1 inh INHALATION BID RF: 0 mirtazapine 15 mg tablet 15 mg PO HS PRN (Reason: Sleep) RF: 0 Discharge Orders: Discharge Order (Routine); Ordered 02/01/21 Ordered By: Ector Hunter/Other Patient Handouts: Cardiac Catheterization Dc Admission Data Admit Date/Time: 01/30/21 22:27 Attending Provider: Chichi Childers Admit Provider: Rayray Smith Primary Care Provider: Ari Ferrera Other Providers: Rosa Santo ; Parker Teran ; Víctor Acuña Other Interventions: Discharge Summary Assessment (RN) Last Done: 02/01/21 13:03 Supervising Physician Co-Signing Physician Notes Resident Physician Supervision Note: I independently interviewed and examined the patient and verified the bryant h istory and physical, reviewed labs and image studies and agree with resident Dr. Zazueta findings and care plan. Resident Activity Tracking Resident Involvement: Resident Care Provided Care Provided: Adult Hospital Medicine
[2021-02-01] MEDS ORDERED: FLUTICASONE/VILANTEROL 100/25MCG 14 PUFFS/INHALER INH SCH (21:00)
[2021-02-02] MEDS ORDERED: FLUTICASONE/VILANTEROL 200/25MCG 14 PUFFS/INHALER INH SCH (09:00)
== END 2021-02-01 17:14 | disposition home or self-care (01) | DRG 281 ==
LOC: ED 20:35 → 2N 22:27 → SUATTDRO 22:27 → 2N 23:09 → 2E 02-01 10:53

== ENCOUNTER 2022-04-28 06:54 | Inpatient (IN) ==
[2022-04-28] MEDS ORDERED: CEFEPIME 2,000 MG/20 ML VIAL IV STA (07:12)
[2022-04-28] MEDS ORDERED: SODIUM CHLORIDE 0.9% 1000ML 500 ML IV ONE (07:14)
[2022-04-28] MEDS ORDERED: SODIUM CHLORIDE 0.9% 1000ML 1,000 ML IV SCH (07:15)
[2022-04-28 07:29] LABS: Basophils # (auto) 0.06 K/uL (0-0.2); Basophils % (auto) 0.4 %; Eosinophils # (auto) 0.09 K/uL (0-0.50); Eosinophils % (auto) 0.7 %; Hematocrit (blood only) 46.1 % (40.1-51.0); Hemoglobin 15.6 g/dl (14.0-18.0); Immature Granulocytes # (auto) 0.06 K/uL (0.00-0.02); Immature Granulocytes % (auto) 0.4 %; Lymphocytes # (auto) 1.09 K/uL (1.2-3.4); Lymphocytes % (auto) 8.1 %; Mean Corpuscular Hemoglobin 30.6 pg (25.0-34.0); Mean Corpuscular Hgb Conc 33.8 g/dL (32.0-36.0); Mean Corpuscular Volume 90.4 fL (80.0-100.0); Monocytes # (auto) 1.46 K/uL (0.24-0.82); Monocytes % (auto) 10.8 %; Neutrophils # (auto) 10.76 K/uL (1.4-6.5); Neutrophils % (auto) 79.6 %; Platelet Count 184 K/uL (130-400); RDW Coefficient of Variation 12.7 % (11.5-14.5); RDW Standard Deviation 42.3 fL (36.4-46.3); White Blood Count 13.52 K/ul (4.8-10.8)
[2022-04-28 07:53] LABS: Alanine Aminotransferase 23 U/L (7-52); Albumin Level 4.2 gm/dl (3.4-5.0); Alkaline Phosphatase 69 U/L (34-104); Anion Gap 8 (3-11); Aspartate Aminotransferase 28 U/L (13-39); BUN Creatinine Ratio 10.9 (10-20); Bilirubin Direct 0.1 mg/dl (0-0.2); Bilirubin,Total 0.7 mg/dl (0.2-1.0); Blood Urea Nitrogen 7 mg/dl (6-23); Calcium 9.4 mg/dl (8.5-10.1); Carbon Dioxide 32 mmol/L (21-32); Chloride 96 mmol/L (98-107); Est GFR (African American) 131.4 ml/min; Est GFR (Non-African American) 113.4 ml/min; Glucose 105 mg/dl (70-99(Fasting)); Magnesium 1.7 mg/dl (1.7-2.4); Potassium 4.1 mmol/L (3.5-5.1); Sodium 136 mmol/L (136-145); Total Protein 7.9 gm/dl (6.0-8.3)
[2022-04-28] MEDS ORDERED: ALBUT/IPRATROP 3MG/0.5MG NEB 3 ML VIAL NEB STA (07:56)
[2022-04-28 07:57] LABS: Troponin I High Sensitivity 12.1 pg/ml (0-20)
--- NOTE | 2022-04-28 08:33 | XRay Report ---
XR chest 1V portable HISTORY: Sepsis COMPARISON: Chest 12/24/2021. FINDINGS: No pneumothorax. No pleural effusions. Stable small linear scarlike density at the left inés g base. The heart is normal in size. The right lung is clear. No evidence for pulmonary edema. IMPRESSION: No significant change compared to the prior study. No acute process. ACT 112: Negative or not required by law. Electronically signed by: Suraj Lazo M.D. 04/28/2022 8:32 AM
[2022-04-28] MEDS ORDERED: OPTIRAY 320 500ml IV ONE (09:22)
--- NOTE | 2022-04-28 09:48 | Electrocardiogram Report ---
Test Reason : Blood Pressure : / mmHG Vent. Rate : 119 BPM Atrial Rate : 119 BPM P-R Int : 154 ms QRS Dur : 100 ms QT Int : 320 ms P-R-T Axes : 072 095 072 degrees QTc Int : 450 ms Poor data quality, interpretation may be adversely affected Sinus tachycardia Rightward axis Incomplete right bundle branch block Borderline ECG When compared with ECG of 30-JAN-2021 20:46, HR has increased by 20 bpm Incomplete right bundle branch block now present T-wave inversion in Anteroseptal leads no longer present Confirmed by Farhan Ferro ([id number]) on 04/28/2022 9:47:51 AM Referred By: REFERRED SELF Confirmed By:Farhan Ferro
[2022-04-28] MEDS ORDERED: dexAMETHasone**PF** 10 MG/ML VIAL IV ONE (10:11)
[2022-04-28] MEDS ORDERED: LEVALBUTEROL HCL 1.25 MG/3 ML NEB NEB STA (10:11)
--- NOTE | 2022-04-28 10:32 | CT Scan Report ---
CT angio chest PE protocol CT DOSE: 1514.60 mGy.cm HISTORY: 51 years-old Male with sob. Acute shortness of breath TECHNIQUE: Multiple CTA images of the chest were obtained after the intravenous administration of 113 ml Optiray. Coronal and sagittal MIPS were obtained from the axial data set and were submitted for review. All measurements were obtained according to NASCET criteria. A dose lowering technique was u tilized adhering to the principles of ALARA. COMPARISON: CTA chest 01/30/2021 FINDINGS: CTA: The heart is normal in size. Mild coronary artery calcifications. Atherosclerosis of the thoracic aor ta without aneurysm or dissection. There is patency of the imaged great vessels. Respiratory motion a rtifact limits evaluation of the lungs and pulmonary arterial tree. No pulmonary emboli are identifie d. CT CHEST: No dominant thyroid nodule. 1.5 cm right hilar lymph node is stable from prior and likely benign. Bor derline enlarged mediastinal lymph nodes include subcarinal adenopathy measuring up to 1.2 cm. No pne umothorax, pleural effusion or overt pulmonary edema. Mild pulmonary emphysema with bronchial wall th ickening. Subtle scattered bilateral tree-in-bud nodules. Subsegmental groundglass and consolidative opacities within the right upper lobe. The central airways appear patent. Hepatic steatosis. No acute process of the imaged upper abdomen. Degenerative changes of the shoulder s and spine. IMPRESSION: 1. No pulmonary emboli identified. 2. Mild emphysema with bronchial wall thickening suggestive of bronchitis. 3. Multilobar distribution of tree-in-bud nodules with ill-defined intermixed groundglass and patchy consolidative opacities suggestive of an infectious or inflammatory bronchiolitis. 4. Mild mediastinal and hilar lymphadenopathy, likely reactive. 5. Hepatic steatosis. ACT 112: Negative or not required by law. The above report was generated using voice recognition software. It may contain grammatical, syntax o r spelling errors. Electronically signed by: Castro Coronel M.D. 04/28/2022 10:30 AM
--- NOTE | 2022-04-28 11:12 | Emergency Department Note ---
History of Present Illness General Chief complaint: Shortness of Breath/Dyspnea Stated complaint: HARD TO BREATHE Time Seen by Provider: 04/28/22 07:03 History of Present Illness 51-year-old male presents to the ED with a chief complaint of shortness of breath. The patient states that he uses oxygen at nighttime but not during the day. He states that he does have a history of smoking and COPD. The patient r eports increasing shortness of breath recently since Monday. He took a home COVID test on Monday that was negative. Walking and talking makes his shortness of breath worse. He has been using his inhalers. He does report a productive cough for green sputum. Nothing is helped. Home Medications Medication Instructions Recorded Confirmed Type meloxicam 15 mg tablet 15 mg PO DAILY PRN pain #30 tabs 02/17/20 03/02/22 Rx aspirin 81 mg tablet,delayed 81 mg PO DAILY #30 tabs 02/08/21 03/02/22 Rx release blood-glucose meter #1 ea 02/08/21 03/02/22 Rx oxygen tubing #1 ea 02/08/21 10/18/21 Rx nicotine (polacrilex) 4 mg gum 4 mg buccal Q2H PRN nicotine 06/09/21 03/02/22 Rx (Nicorette) cravings #50 ea lancing device (lancing device #1 ea 07/01/21 03/02/22 Rx with lancets) sumatriptan succinate 50 mg tablet See Rx Instructions PO .COMPLEX #9 07/27/21 03/02/22 Rx tabs tiotropium bromide 1.25 2 puff inhalation DAILY #4 grams 09/20/21 03/02/22 Rx mcg/actuation mist for inhalation (Spiriva Respimat) albuterol sulfate 90 mcg/actuation 2 inh inhalation QID #8.5 grams 10/25/2102/08 Rx aerosol inhaler mometasone-formoterol HFA 200 2 puff inhalation BID #13 grams 11/15/21 03/02/22 Rx mcg-5 mcg/actuation aerosol inhaler (Dulera) metoprolol succinate 100 mg 100 mg PO DAILY #90 tabs 12/17/21 03/02/22 Rx tablet,extended release 24 hr diclofenac sodium 1 % topical gel 4 g topical QID PRN knee pain #200 03/02/22 03/02/22 Rx grams metformin 500 mg tablet 500 mg PO DAILY #30 tabs 04/18/22 Rx rosuvastatin 10 mg tablet 10 mg PO DAILY #30 tabs 04/18/22 Rx Allergies Allergy/AdvReac Type Severity Reaction Status Date / Time mushroom Allergy Intermediate SWELLING Verified 03/02/22 15:17 OF NECK shellfish derived Allergy Intermediate REDNESS & Verified 03/02/22 15:17 SWELLING OF NECK iodine Allergy Unknown Unknown Verified 03/02/22 15:17 Sulfa (Sulfonamide Allergy Unknown Unknown Verified 03/02/22 15:17 Antibiotics) prednisone AdvReac Unknown Unknown Verified 03/02/22 15:17 seafood Allergy Unknown Unknown Uncoded 03/02/22 15:17 Past Med/Surg History Medical History Abnormal ECG Abnormal weight gain Acute bronchitis Acute exacerbation of chronic obstructive pulmonary disease (COPD) Acute respiratory failure with hypoxia Adenoma of colon Alcohol dependence Annual physical exam Cervicalgia Chest pain Chest pain Elevated d-dimer Elevated troponin Hearing loss History of coronary vasospasm Knee pain, right Nocturnal oxygen desaturation Prostate cancer screening Right wrist tendonitis Type 2 diabetes mellitus Surgical History H/O eye surgery H/O hand surgery History of hernia repair History of oral surgery Retinal detachment S/P cardiac catheterization 02/01/21 Dr. Micheal Acuña- Negative S/P small bowel resection Family History Mother Heart disease Social History Smoking Status: Current every day smoker Tobacco Type: Cigarettes Cigarettes Per Day: 20; Hx Alcohol Use: Yes Alcohol type: beer Hx Substance Use: No Preferred Language: Iraqi Communication Ability: Effective Dynamometer Repairer Required: No Beliefs That Will Affect Care: None marital status: Single Current Living Situation: Alone Feels Safe at Home: Yes Assistive Devices: Oxygen - Continuous Review of Systems A total of 10 systems reviewed and were otherwise negative Physical Exam Vital Signs Vital Signs - 24 hr 04/28/22 07:00 04/28/22 07:19 04/28/22 06:54 Temperature 36.5 C Temperature Source Temporal Artery Scan Pulse Rate 128 H Pulse Rate [Apical] Pulse Rhythm Pulse Rhythm [Apical] Pulse Strength [Apical] Respiratory Rate 32 H Respiratory Effort / Characteristics Labored Respiratory Depth Shallow Respiratory Pattern Irregular Blood Pressure 144/90 H Blood Pressure [Left Arm] Blood Pressure Mean 108 Blood Pressure Mean [Left Arm] Blood Pressure Position [Left Arm] Pulse Oximetry 76 L 87 L Oxygen Delivery Method Room Air Oxymask Oxygen Flow Rate 4 Sepsis Recent Fever Within 48 Hours No Sepsis New/Unexplained Change in Mental Status No Sepsis Action Taken by Nursing No Action Required Oxygen Flow Rate - Titration Fraction of Inspired Oxygen - Titration 6 Pulse Oximetry Post Tiitration 94 04/28/22 06:54 04/28/22 07:12 04/28/22 07:12 Temperature Temperature Source Pulse Rate 122 H Pulse Rate [Apical] 122 H Pulse Rhythm Regular Pulse Rhythm [Apical] Regular Pulse Strength [Apical] Respiratory Rate 16 Respiratory Effort / Characteristics Non-Labored Respiratory Depth Normal Respiratory Pattern Regular Blood Pressure Blood Pressure [Left Arm] 158/87 H Blood Pressure Mean Blood Pressure Mean [Left Arm] 110 Blood Pressure Position [Left Arm] Lying Lying Pulse Oximetry 99 99 Oxygen Delivery Method Oxymask Oxymask Oxygen Flow Rate 7 7 Sepsis Recent Fever Within 48 Hours Sepsis New/Unexplained Change in Mental Status Sepsis Action Taken by Nursing Oxygen Flow Rate - Titration Fraction of Inspired Oxygen - Titration Pulse Oximetry Post Tiitration 04/28/22 08:34 04/28/22 08:54 04/28/22 10:00 Temperature Temperature Source Pulse Rate Pulse Rate [Apical] 135 H 130 H Pulse Rhythm Pulse Rhythm [Apical] Pulse Strength [Apical] Respiratory Rate 18 28 H Respiratory Effort / Characteristics Labored Labored Respiratory Depth Respiratory Pattern Blood Pressure Blood Pressure [Left Arm] 129/88 Blood Pressure Mean Blood Pressure Mean [Left Arm] 101 Blood Pressure Position [Left Arm] Lying Pulse Oximetry 99 95 98 Oxygen Delivery Method Oxymask Oxymask Oxymask Oxygen Flow Rate 7 7 9 Sepsis Recent Fever Within 48 Hours Sepsis New/Unexplained Change in Mental Status Sepsis Action Taken by Nursing Oxygen Flow Rate - Titration 5 Fraction of Inspired Oxygen - Titration Pulse Oximetry Post Tiitration 94 04/28/22 11:02 Temperature Temperature Source Pulse Rate Pulse Rate [Apical] 136 H Pulse Rhythm Pulse Rhythm [Apical] Regular Pulse Strength [Apical] Normal Respiratory Rate 16 Respiratory Effort / Characteristics Non-Labored Respiratory Depth Normal Respiratory Pattern Regular Blood Pressure Blood Pressure [Left Arm] 149/81 H Blood Pressure Mean Blood Pressure Mean [Left Arm] 103 Blood Pressure Position [Left Arm] Lying Pulse Oximetry 96 Oxygen Delivery Method Oxymask Oxygen Flow Rate 9 Sepsis Recent Fever Within 48 Hours Sepsis New/Unexplained Change in Mental Status Sepsis Action Taken by Nursing Oxygen Flow Rate - Titration Fraction of Inspired Oxygen - Titration Pulse Oximetry Post Tiitration CONSTITUTIONAL/VITAL SIGNS: Reviewed / noted above. GENERAL: Non-toxic in appearance. INTEGUMENTARY: Warm, dry, and [place]. HEAD: Normocephalic. EYES: without scleral icterus or trauma. ENT/OROPHARYNX: clear and moist. LYMPHADENOPATHY/NECK: Is supple without lymphadenopathy or meningismus. RESPIRATORY: Diminished to auscultation bilaterally. Moderate increased work of breathing. CARDIOVASCULAR: Regular rate and rhythm. GI/ABDOMEN: Soft and nontender. No organomegaly or pulsatile mass. EXTREMITIES: Warm and well perfused. NEUROLOGICAL: Intact without focal deficits. PSYCHIATRIC: normal affect. MUSCULOSKELETAL: Normally developed with good muscle tone. TRIAGE NURSING DOCUMENTATION REVIEWED. Course Administered Medications Discontinued Medications Albuterol (Albut/Ipratrop 3mg/0.5mg Neb 3 Ml Vial) 3 ml NEB NOW STA; Protocol Stop: 04/28/22 07:57 Last Admin: 04/28/22 08:07 Dose: 3 ml Documented By: SR Dexamethasone Sodium Phosphate (DexamethasonePf 10 Mg/Ml Vial) 10 mg IV NOW ONE Stop: 04/28/22 10:12 Last Admin: 04/28/22 10:18 Dose: 10 mg Documented By: SR Sodium Chloride (Nss 1000ml) 500 mls @ 999 mls/hr IV .Q31M ONE Stop: 04/28/22 07:44 Last Infusion: 04/28/22 09:25 Dose: 0 mls/hr Documented By: Admin: 04/28/22 08:52 Dose: 999 mls/hr Documented By: SR Sodium Chloride (Nss 1000ml) 1,000 mls @ 999 mls/hr IV .Q1H1M SKY Stop: 04/28/22 08:15 Last Infusion: 04/28/22 08:52 Dose: 0 mls/hr Documented By: Admin: 04/28/22 07:47 Dose: 999 mls/hr Documented By: SR Cefepime HCl (Maxipime) 2,000 mg in 20 mls @ 5 mls/min IV NOW STA; Protocol Stop: 04/28/22 07:15 Last Admin: 04/28/22 07:47 Dose: 5 mls/min Documented By: Ioversol (Optiray 320 500ml) 113 ml IV ONCE ONE Stop: 04/28/22 09:23 Last Admin: 04/28/22 09:24 Dose: 113 ml Documented By: HARDY Levalbuterol HCl (Levalbuterol Hcl 1.25 Mg/3 Ml Neb) 1.25 mg NEB NOW STA; Protocol Stop: 04/28/22 10:12 Last Admin: 04/28/22 10:18 Dose: 1.25 mg Documented By: Medical Decision Making Differential Diagnosis The differential was considered includes acute myocardial infarction, acute coronary syndrome, myocarditis, pericarditis, pericardial effusions /tamponad, esophageal perforation, pulmonary embolism, pneumonia, pneumothorax, cardi omyopathy, congestive heart, anemia , COPD/asthma exacerbation. Medical Records Attestation: I reviewed the patient's medical records. Home Medications Current Medication List: was personally reviewed by me Laboratory Data Attestation: I reviewed the patient's lab results. Result diagrams: 04/28/22 07:16 04/28/22 07:16 Lab Results 04/28/22 04/28/22 04/28/22 Range/Units 07:16 07:16 07:16 WBC 13.52 H (4.8-10.8) K/ul RBC 5.10 (4.63-6.08) M/uL Hgb 15.6 (14.0-18.0) g/dl Hct 46.1 (40.1-51.0) % MCV 90.4 (80.0-100.0) fL MCH 30.6 (25.0-34.0) pg MCHC 33.8 (32.0-36.0) g/dL RDW Std Deviation 42.3 (36.4-46.3) fL RDW Coeff of Nolberto 12.7 (11.5-14.5) % Plt Count 184 (130-400) K/uL MPV 10.0 (9.4-12.4) fL Immature Gran % (Auto) 0.4 % Neut % (Auto) 79.6 % Lymph % (Auto) 8.1 % [place] % (Auto) 10.8 % Eos % (Auto) 0.7 % Baso % (Auto) 0.4 % Neut # (Auto) 10.76 H (1.4-6.5) K/uL Lymph # (Auto) 1.09 L (1.2-3.4) K/uL [place] # (Auto) 1.46 H (0.24-0.82) K/uL Eos # (Auto) 0.09 (0-0.50) K/uL Baso # (Auto) 0.06 (0-0.2) K/uL Immature Gran # (Auto) 0.06 H (0.00-0.02) K/uL Sodium 136 (136-145) mmol/L Potassium 4.1 (3.5-5.1) mmol/L Chloride 96 L (98-107) mmol/L Carbon Dioxide 32 (21-32) mmol/L Anion Gap 8 (3-11) BUN 7 (6-23) mg/dl Creatinine 0.64 (0.6-1.4) mg/dl Est Cr Clr Drug Dosing Not Reportable Est GFR ( Amer) 131.4 ml/min Est GFR (Non-Af Amer) 113.4 ml/min BUN/Creatinine Ratio 10.9 (10-20) Glucose 105 H (70-99(Fasting)) mg/dl Lactate 0.8 (0.4-2.0) mmol/L Calcium 9.4 (8.5-10.1) mg/dl Magnesium 1.7 (1.7-2.4) mg/dl Total Bilirubin 0.7 (0.2-1.0) mg/dl Direct Bilirubin 0.1 (0-0.2) mg/dl AST 28 (13-39) U/L ALT 23 (7-52) U/L Alkaline Phosphatase 69 (34-104) U/L Troponin I High Sens 12.1 (0-20) pg/ml Total Protein 7.9 (6.0-8.3) gm/dl Albumin 4.2 (3.4-5.0) gm/dl Procalcitonin (0-0.5) ng/ml 04/28/22 Range/Units 07:16 WBC (4.8-10.8) K/ul RBC (4.63-6.08) M/uL Hgb (14.0-18.0) g/dl Hct (40.1-51.0) % MCV (80.0-100.0) fL MCH (25.0-34.0) pg MCHC (32.0-36.0) g/dL RDW Std Deviation (36.4-46.3) fL RDW Coeff of Nolberto (11.5-14.5) % Plt Count (130-400) K/uL MPV (9.4-12.4) fL Immature Gran % (Auto) % Neut % (Auto) % Lymph % (Auto) % [place] % (Auto) % Eos % (Auto) % Baso % (Auto) % Neut # (Auto) (1.4-6.5) K/uL Lymph # (Auto) (1.2-3.4) K/uL [place] # (Auto) (0.24-0.82) K/uL Eos # (Auto) (0-0.50) K/uL Baso # (Auto) (0-0.2) K/uL Immature Gran # (Auto) (0.00-0.02) K/uL Sodium (136-145) mmol/L Potassium (3.5-5.1) mmol/L Chloride (98-107) mmol/L Carbon Dioxide (21-32) mmol/L Anion Gap (3-11) BUN (6-23) mg/dl Creatinine (0.6-1.4) mg/dl Est Cr Clr Drug Dosing Est GFR ( Amer) ml/min Est GFR (Non-Af Amer) ml/min BUN/Creatinine Ratio (10-20) Glucose (70-99(Fasting)) mg/dl Lactate (0.4-2.0) mmol/L Calcium (8.5-10.1) mg/dl Magnesium (1.7-2.4) mg/dl Total Bilirubin (0.2-1.0) mg/dl Direct Bilirubin (0-0.2) mg/dl AST (13-39) U/L ALT (7-52) U/L Alkaline Phosphatase (34-104) U/L Troponin I High Sens (0-20) pg/ml Total Protein (6.0-8.3) gm/dl Albumin (3.4-5.0) gm/dl Procalcitonin 0.10 (0-0.5) ng/ml Imaging Data Radiologist's Impression: Chest X-Ray 04/28/22 07:12 XR chest 1V portable HISTORY: Sepsis COMPARISON: Chest 12/24/2021. FINDINGS: No pneumothorax. No pleural effusions. Stable small linear scarlike density at the left lung base. The heart is normal in size. The right lung is clear. No evidence for pulmonary edema. IMPRESSION: No significant change compared to the prior study. No acute process. ACT 112: Negative or not required by law. Electronically signed by: Suraj Lazo M.D. 04/28/2022 8:32 AM Chest CTA 04/28/22 07:56 CT angio chest PE protocol CT DOSE: 1514.60 mGy.cm HISTORY: 51 years-old Male with sob. Acute shortness of breath TECHNIQUE: Multiple CTA images of the chest were obtained after the intravenous administration of 113 ml Optiray. Coronal and sagittal MIPS were obtained from the axial data set and were submitted for review. All measurements were obtained according to NASCET criteria. A dose lowering technique was utilized adhering to the principles of ALARA. COMPARISON: CTA chest 01/30/2021 FINDINGS: CTA: The heart is normal in size. Mild coronary artery calcifications. At herosclerosis of the thoracic aorta without aneurysm or dissection. There is patency of the imaged great vessels. Respiratory motion artifact limits evaluation of the lungs and pulmonary arterial tree. No pulmonary emboli are identified. CT CHEST: No dominant thyroid nodule. 1.5 cm right hilar lymph node is stable from prior and likely benign. Borderline enlarged mediastinal lymph nodes include subcarinal adenopathy measuring up to 1.2 cm. No pneumothorax, pleural effusion or overt pulmonary edema. Mild pulmonary emphysema with bronchial wall thickening. Subtle scattered bilateral tree-in-bud nodules. Subsegmental groundglass and consolidative opacities within the right upper lobe. The central airways appear patent. Hepatic steatosis. No acute process of the imaged upper abdomen. Degenerative changes of the shoulders and spine. IMPRESSION: 1. No pulmonary emboli identified. 2. Mild emphysema with bronchial wall thickening suggestive of bronchitis. 3. Multilobar distribution of tree-in-bud nodules with ill-defined intermixed gr oundglass and patchy consolidative opacities suggestive of an infectious or inflammatory bronchiolitis. 4. Mild mediastinal and hilar lymphadenopathy, likely reactive. 5. Hepatic steatosis. ACT 112: Negative or not required by law. The above report was generated using voice recognition software. It may contain grammatical, syntax or spelling errors. Electronically signed by: Castro oCronel M.D. 04/28/2022 10:30 AM ECG Data Attestation: I personally reviewed and interpreted this ECG as follows: Additional Comments: Twelve-lead EKG: Per my interpretation shows a sinus tach at a rate of 118. ST elevation. No PVCs. Normal QTC. MDM Narrative 51-year-old male presents with shortness of breath. The patient's has d iminished breath sounds on exam. After 1 nebulizer treatment his lungs opened up slightly and he had some scattered wheezing diffusely. He has a CT scan that shows possibly a viral syndrome. His EKG shows a sinus rhythm. His troponin was negative. CBC and chemistry panel was unremarkable. The patient's procalcitonin was negative as was lactic acid. The patient was treated with a DuoNeb treatment as well as a Xopenex treatment. He is given IV Decadron. He was given IV fluids. He was given empiric cefepime. He will be seen by the hospitalist for further evaluation and care. Impression & Plan Asthma exacerbation in COPD, Hypoxia, Pneumonia, viral Discharge Plan Visit Data Chief Complaint: Shortness of Breath/Dyspnea Stated Complaint: HARD TO BREATHE ED Provider: Loy Schwartz Discharge Problem: Asthma exacerbation in COPD, Hypoxia, Pneumonia, viral Patient Disposition: Being Evaluated by Hospitalist Forms Stand Alone Forms: My [facility] Shoulder Tap Prescriptions Prescriptions: No Action (DME) lancing device [lancing device with lancets] Misc See Rx Instructions .Route Qty: 1 0RF Rx Instructions: As directed E11.9- sumatriptan succinate 50 mg tablet See Rx Instructions PO .COMPLEX Qty: 9 5RF Rx Instructions: take 1 tab at onset of headache; if no relief may repeat 1 tab after at least 2 hrs; max = 4 tabs/24 hr PO Spiriva Respimat 1.25 mcg/actuation mist 2 puff INH DAILY Qty: 4 11RF albuterol sulfate 90 mcg/actuation HFA aerosol inhaler 2 inh inhalation QID Qty: 8.5 5RF Dulera 200-5 mcg/actuation HFA aerosol inhaler 2 puff inhalation BID Qty: 13 11RF Rx Instructions: NOT STARTED YET, FINISHING ADVAIR FIRST THEN START DULERA metoprolol succinate 100 mg tablet extended release 24 hr 100 mg PO DAILY Qty: 90 3RF rosuvastatin 10 mg tablet 10 mg PO DAILY Qty: 30 5RF metformin 500 mg tablet 500 mg PO DAILY Qty: 30 5RF nicotine (polacrilex) [Nicorette] 4 mg gum 4 mg buccal Q2H MDD 5 PRN (Reason: nicotine cravings) Qty: 50 3RF diclofenac sodium 1 % gel 4 g topical QID PRN (Reason: knee pain) Qty: 200 5RF Rx Instructions: apply to single knee, ankle, foot; for foot includes sole/toes/top of foot meloxicam 15 mg tablet 15 mg PO DAILY PRN (Reason: pain) Qty: 30 11RF Rx Instructions: Take it with food. aspirin 81 mg tablet,delayed release (DR/EC) 81 mg PO DAILY Qty: 30 2RF (DME) blood-glucose meter Kit See Rx Instructions .ROUTE .MEDSUPPLY Qty: 1 0RF Rx Instructions: as per Rx plan. Check once daily. (DME) oxygen tubing See Rx Instructions .Route .MEDSUPPLY Qty: 1 0RF Rx Instructions: As directed Referrals Referrals: Ari Ferrera MD [Primary Care Provider] -
[2022-04-28] MEDS ORDERED: PANTOprazole 40 MG TAB PO STA (11:36)
--- NOTE | 2022-04-28 11:37 | History & Physical Report ---
Date of Service April 28, 2022 Assessment & Plan (1) Acute hypoxemic respiratory failure: Plan: -Admit to med/tele -Patient is currently afebrile, hemodynamically stable, and stable on 5L via mist mask -At this time it appears the patient's respiratory failure is due to COPD exacerbation. CTA was negative for PE, procal is negative so low suspicion at this time for bacterial infection, Viral Biofire panel was also negative -Will obtain legionella and mycoplasma labs now -Will obtain ABG now to further assess his respiratory status -Monitor on tele and pulse oximetry, wean oxygen as able -Was given 10 mg IV dexamethasone in the ED, will continue with 40 mg PO prednisone daily for a total of 5 days treatment starting tomorrow -Continue with DuoNebs q4R along with incentive spirometry and flutter therapy -Continue Spiriva and Dulera -Was given a dose of Cefepime in the ED, will continue with Azithromycin for 5 days for COPD exacerbation with first dose given now -Was able to wean him to 5L via mist mask during my exam, continue to wean as able -AM CBC and BMP (2) Alcohol abuse: Plan: -Currently drinking 8 beers nightly -Last drink was last night at approximately 2030 -Will start AWSS protocol now and monitor for further signs/symptoms of withdrawal -Had successfully quit drinking prior to covid with the use of Vivitrol, would see if he is interested in restarting on discharge (3) Nocturnal oxygen desaturation: Plan: -Patient normally on 1.5 at night via NC. For now continue with as needed supple mental oxygen for acute hypoxia (4) Type 2 diabetes mellitus: Plan: -Normally on metformin, hold for now -Will monitor BSG ACHS, starting with correction factor of 50 and carb ration of 16 -Will start small dose of lantus at 5 units BID for now as he will likely be hyperglycemic while on steroid therapy -Adjust regimen as needed (5) GERD (gastroesophageal reflux disease): Plan: -Does not appear to be on outpatient therapy -Will start Pantoprazole for GI protection while on steroids (6) Hyperlipidemia LDL goal <130: Plan: -Continue Crestor (7) Hypothyroidism (acquired): Plan: -Does not appear to be on therapy outpatient -Will order TSH with reflex T4 is needed (8) Benign essential hypertension: Plan: -continue metoprolol, will give his dose now as he did not take it this morning (9) Depression: Plan: -Not currently on therapy (10) COPD (chronic obstructive pulmonary disease): Plan: -See COPD exacerbation (11) Tobacco abuse: Plan: -Still smoking 1/2 PPD -Will start nicotine patch, medium dose now -Continue to stress smoking cessation Plan The patient was discussed with Dr. Morley at the time of the admission History of Present Illness Chief Complaint: SOB Primary Care Provider: Ari Ferrera MD Simon is a 51 year old male with a PMH significant for tobacco abuse, COPD, HTN, dyslipidemia, DM II, Nocturnal oxygen desaturation, Alcohol dependence, GERD, and depression who presented to the [facility] ED on 04/28/22 with a chief complaint of SOB. In the ED the patient was found to be afebrile, hemodynamically stable, but hypoxic at 76% on RA. Labs were remarkable for a leukocytosis of 13.52 with left shift of 10.76, stable renal function and electrolytes, High sensitivity troponin of 12.1, procal of 0.10. Chest xray was negative for acute processes compared to his last chest xray. CTA of the chest showed "No pulmonary emboli identified. Mild emphysema with bronchial wall thickening suggestive of bronchitis.Multilobar distribution of tree-in-bud nodules with ill-defined intermixed groundglass and patchy consolidative opacities suggestive of an infectious or inflammatory bronchiolitis. Mild mediastinal and hilar lymphadenopathy, likely reactive. Hepatic steatosis.". Prior to admission the patient was given 2L NSS bolus, albuterol, levalbuterol, 10 mg IV dexamethasone, and one dose of cefepime. At the time of the exam the patient was lying in bed in mild distress due to his respiratory status, he was noted to be on 9L via mist mask at the start of my exam. The patient was noted to be diaphoretic at the start of my exam as well, of note, his ED was also very warm. He states that his symptoms started on 04/24/22 with increased SOB. He has a chronic smoker's cough but does not typically produce sputum. Recently he has been coughing more frequently and has been producing white/shah sputum. He denies recent fevers and chills, he notes that he was at his friend's house on 04/23 and the friend's daughter had an upper respiratory infection. He does not believe that she has covid, he tested himself on 04/25 and was negative; he has never had a covid vaccine. He has been using his Spiriva and Dulera as prescribed and prn albuterol but he was still feeling significantly SOB at home, especially with exertion. He is still smoking approximately 1/2 pack per day and would be interested in nicotine patches while admitted. He is still drinking about 8 beers every night, he notes withdrawal symptoms when he does stop drinking. His PCP has prescribed him ativan at times when he stops drinking and it helps his symptoms. He had stopped drinking prior to covid with the use of Vivitrol but he started drinking agian during covid when he couldn't see his kids. He denies lightheadedness, dizziness, chest pain, abdominal pain, nausea, vomiting, diarrhea, dysuria, hematuria and lower extremity swelling. I discussed code status with him and he would like to be a full code. Allergies Allergy/AdvReac Type Severity Reaction Status Date / Time mushroom Allergy Intermediate SWELLING Verified 04/28/22 12:39 OF NECK shellfish derived Allergy Intermediate REDNESS & Verified 04/28/22 12:39 SWELLING OF NECK iodine Allergy Unknown Unknown Verified 04/28/22 12:39 Sulfa (Sulfonamide Allergy Unknown Unknown Verified 04/28/22 12:39 Antibiotics) prednisone AdvReac Unknown Unknown Verified 04/28/22 12:39 seafood Allergy Unknown Unknown Uncoded 04/28/22 12:39 Home Medications Medication Instructions Recorded Confirmed Type meloxicam 15 mg tablet 15 mg PO DAILY PRN pain #30 tabs 02/17/20 04/28/22 Rx aspirin 81 mg tablet,delayed 81 mg PO DAILY #30 tabs 02/08/21 04/28/22 Rx release oxygen tubing #1 ea 02/08/21 04/28/22 Rx nicotine (polacrilex) 4 mg gum 4 mg buccal Q2H PRN nicotine 06/09/21 04/28/22 Rx (Nicorette) cravings #50 ea sumatriptan succinate 50 mg tablet See Rx Instructions PO .COMPLEX #9 07/27/21 04/28/22 Rx tabs tiotropium bromide 1.25 2 puff inhalation DAILY #4 grams 09/20/21 04/28/22 Rx mcg/actuation mist for inhalation (Spiriva Respimat) albuterol sulfate 90 mcg/actuation 2 inh inhalation QID #8.5 grams 10/25/21 04/28/22 Rx aerosol inhaler mometasone-formoterol HFA 200 2 puff inhalation BID #13 grams 11/15/21 04/28/22 Rx mcg-5 mcg/actuation aerosol inhaler (Dulera) metoprolol succinate 100 mg 100 mg PO DAILY #90 tabs 12/17/21 04/28/22 Rx tablet,extended release 24 hr diclofenac sodium 1 % topical gel 4 g topical QID PRN knee pain #200 03/02/22 04/28/22 Rx grams metformin 500 mg tablet 500 mg PO DAILY #30 tabs 04/18/22 04/28/22 Rx rosuvastatin 10 mg tablet 10 mg PO DAILY #30 tabs 04/18/22 04/28/22 Rx Past Med/Surg History Medical History Abnormal ECG Abnormal weight gain Acute bronchitis Acute exacerbation of chronic obstructive pulmonary disease (COPD) Acute respiratory failure with hypoxia Adenoma of colon Alcohol dependence Annual physical exam Cervicalgia Chest pain Chest pain Elevated d-dimer Elevated troponin Hearing loss History of coronary vasospasm Knee pain, right Nocturnal oxygen desaturation Prostate cancer screening Right wrist tendonitis Type 2 diabetes mellitus Surgical History H/O eye surgery H/O hand surgery History of hernia repair History of oral surgery Retinal detachment S/P cardiac catheterization 02/01/21 Dr. Micheal Acuña- Negative S/P small bowel resection Family History Mother Heart disease Social History Smoking Status: Current every day smoker Tobacco Type: Cigarettes Cigarettes Per Day: 20; Hx Alcohol Use: Yes Alcohol type: beer Hx Substance Use: No Preferred Language: Belarusian Communication Ability: Effective Cigarette Tipper Required: No Beliefs That Will Affect Care: None marital status: Single Current Living Situation: Alone Feels Safe at Home: Yes Assistive Devices: None Review of Systems Review of Systems: Denies current fever, chills, headache, changes in vision, hearing, taste, and smell, chest pain,abdominal pain, nausea, vomiting, diarrhea, hematemesis, melena, dysuria, hematuria, and recent falls. All systems have been reviewed and are otherwise negative. Physical Exam Physical Exam: Physical Exam: General: In mild distress, stated age, obese, non-toxic appearing HEENT: Normocephalic, atraumatic, patient with cataracts of the right eye, left pupil is round and reactive to light, moist mucus membranes, no JVD, trachea midline, no thyromegaly Chest/Pulm: mild respiratory distress, able to speak in full sentences, symmetrical chest expansion, scattered rhonchi and expiratory wheezing throughout Cardiac: Tachycardic rate, regular rhythm, no murmurs noted Abdomen: Negative for ascites and bruising, normoactive bowel sounds, soft, non-tender to palpation throughout Musculoskeletal: Symmetrical and without signs of acute trauma, upper and lower extremities with full ROM, no atrophy, spasticity, or flaccidity Extremities: Radial, dorsalis pedis, and posterior tibial pulses are intact and symmetrical, no edema noted in the BL LE's Skin: Warm, dry, no rashes , lesions, or scars noted Neuro: Alert and oriented to person, place, month, year, and president, no focal defects, CN II-XII tested and intact, Psych: Mild distress but cooperative during the exam Results & Data Results & Data ([facility]) Vital Signs (Past 12 Hours) Vital Signs Temp Pulse Pulse Resp BP BP Pulse Ox 04/28/22 11:02 136 H 16 149/81 H 96 04/28/22 10:00 130 H 28 H 129/88 98 04/28/22 08:54 135 H 18 95 04/28/22 08:34 99 04/28/22 07:12 122 H 99 04/28/22 06:54 122 H 16 158/87 H 99 04/28/22 07:19 87 L 04/28/22 07:00 36.5 C 128 H 32 H 144/90 H 76 L O2 Del Method O2 Flow Rate 04/28/22 11:02 Oxymask 9 04/28/22 10:00 Oxymask 9 04/28/22 08:54 Oxymask 7 04/28/22 08:34 Oxymask 7 04/28/22 07:12 Oxymask 7 04/28/22 06:54 Oxymask 7 04/28/22 07:19 Oxymask 4 04/28/22 07:00 Room Air Laboratory Results Abnormal lab results 04/28/22 04/28/22 Range/Units 07:16 07:16 WBC 13.52 H (4.8-10.8) K/ul Neut # (Auto) 10.76 H (1.4-6.5) K/uL Lymph # (Auto) 1.09 L (1.2-3.4) K/uL [place] # (Auto) 1.46 H (0.24-0.82) K/uL Immature Gran # (Auto) 0.06 H (0.00-0.02) K/uL Chloride 96 L (98-107) mmol/L Glucose 105 H (70-99(Fasting)) mg/dl Diagnostic Findings Chest X-Ray 04/28/22 07:12 XR chest 1V portable HISTORY: Sepsis COMPARISON: Chest 12/24/2021. FINDINGS: No pneumothorax. No pleural effusions. Stable small linear scarlike density at the left lung base. The heart is normal in size. The right lung is clear. No evidence for pulmonary edema. IMPRESSION: No significant change compared to the prior study. No acute process. ACT 112: Negative or not required by law. Electronically signed by: Suraj Lazo M.D. 04/28/2022 8:32 AM Chest CTA 04/28/22 07:56 CT angio chest PE protocol CT DOSE: 1514.60 mGy.cm HISTORY: 51 years-old Male with sob. Acute shortness of breath TECHNIQUE: Multiple CTA images of the chest were obtained after the intravenous administration of 113 ml Optiray. Coronal and sagittal MIPS were obtained from the axial data set and were submitted for review. All measurements were obtained according to NASCET criteria. A dose lowering technique was utilized adhering to the principles of ALARA. COMPARISON: CTA chest 01/30/2021 FINDINGS: CTA: The heart is normal in size. Mild coronary artery calcifications. Atherosclerosis of the thoracic aorta without aneurysm or dissection. There is patency of the imaged great vessels. Respiratory motion artifact limits evaluation of the lungs and pulmonary arterial tree. No pulmonary emboli are identified. CT CHEST: No dominant thyroid nodule. 1.5 cm right hilar lymph node is stable from prior and likely benign. Borderline enlarged mediastinal lymph nodes include subcarinal adenopathy measuring up to 1.2 cm. No pneumothorax, pleural effusion or overt pulmonary edema. Mild pulmonary emphysema with bronchial wall thickening. Subtle scattered bilateral tree-in-bud nodules. Subsegmental groundglass and consolidative opacities within the right upper lobe. The central airways appear patent. Hepatic steatosis. No acute process of the imaged upper abdomen. Degenerative changes of the shoulders and spine. IMPRESSION: 1. No pulmonary emboli identified. 2. Mild emphysema with bronchial wall thickening suggestive of bronchitis. 3. Multilobar distribution of tree-in-bud nodules with ill-defined intermixed groundglass and patchy consolidative opacities suggestive of an infectious or inflammatory bronchiolitis. 4. Mild mediastinal and hilar lymphadenopathy, likely reactive. 5. Hepatic steatosis. ACT 112: Negative or not required by law. The above report was generated using voice recognition software. It may contain grammatical, syntax or spelling errors. Electronically signed by: Castro Coronel M.D. 04/28/2022 10:30 AM ECG Additional Comments: Poor data quality, interpretation may be adversely affected Sinus tachycardia Rightward axis Incomplete right bundle branch block Borderline ECG When compared with ECG of 30-JAN-2021 20:46, HR has increased by 20 bpm Incomplete right bundle branch block now present T-wave inversion in Anteroseptal leads no longer present Code Status & VTE Plan Code Status Full code VTE Prophylaxis Plan VTE Prophylaxis will be ordered: Yes Supervising Physician Co-Signing Physician Notes I personally saw and examined the patient. I verified all bryant points and agree with Loy Lee PA-C with the following exceptions and/or additions: 51 year old male with COPD presents with shortness of breath. Significant expiratory wheeze on exam. Thinks he caught a cold earlier this week. O/E prolonged expiratory phase, significant expiratory wheeze, using accessory muscles, A/P Acute hypoxic respiratory failure with COPD exacerbation - duonebs, given size and severity of COPD exacerbation will switch prednisone to Solu-medrol 40mg q8h, Azithromycin as above PG Care Time/CCT Total # of Minutes Spent Total Time Spent with Patient: Total time spent is greater than 50% in coordination of care (as documented) at patient's floor/unit and/or counseling patient: C[place] [address] Initial Inpt Care Lvl 3 Patient Type Established Medical Decision Making High Complexity Diagnoses Acute hypoxemic respiratory failure J96.01 Alcohol abuse F10.10 Nocturnal oxygen desaturation G47.34 Type 2 diabetes mellitus E11.9 GERD (gastroesophageal reflux disease) K21.9 Hyperlipidemia LDL goal <130 E78.5 Hypothyroidism (acquired) E03.9 Benign essential hypertension I10 Depression F32.9 COPD (chronic obstructive pulmonary disease) J44.9 COPD type: unspecified COPD Tobacco abuse Z72.0 (1) COPD (chronic obstructive pulmonary disease) COPD type: unspecified COPD Qualified Code(s): J44.9 - Chronic obstructive pulmonary disease, unspecified
[2022-04-28] MEDS ORDERED: LORazepam 2 MG in SYRINGE 0 ML IV PRN (12:08)
[2022-04-28] MEDS ORDERED: Ativan IV Alcohol Withdrawal--Active Protocol IV PRN (12:08)
[2022-04-28] MEDS ORDERED: LORazepam 3 MG in SYRINGE 0 ML IV PRN (12:08)
[2022-04-28] MEDS ORDERED: METOPROLOL SUCC 50MG EXT REL TAB PO STA (12:11)
[2022-04-28 12:12] LABS: Base Excess VBG 4.6 mEq/L; HCO3 VBG 33 mmol/L; PCO2 VBG 64 mmHg (38-50); PO2 VBG 51 mmHg; pH VBG 7.32 (7.36-7.41)
[2022-04-28 12:22] LABS: Adenovirus PCR Not Detected (NotDetected); Bordetella parapertussis PCR Not Detected (NotDetected); Bordetella pertussis PCR Not Detected (NotDetected); Chlamydia pneumoniae PCR Not Detected (NotDetected); Coronavirus 229E PCR Not Detected (NotDetected); Coronavirus CoV-2 (COVID19)PCR Not Detected (NotDetected); Coronavirus HKU1 PCR Not Detected (NotDetected); Coronavirus NL63 PCR Not Detected (NotDetected); Coronavirus OC43PCR Not Detected (NotDetected); Human Metapneumovirus PCR Not Detected (NotDetected); Influenza A PCR Not Detected (NotDetected); Influenza B PCR Not Detected (NotDetected); Mycoplasma pneumoniae PCR Not Detected (NotDetected); Parainfluenza Virus 1 PCR Not Detected (NotDetected); Parainfluenza Virus 2 PCR Not Detected (NotDetected); Parainfluenza Virus 3 PCR Not Detected (NotDetected); Parainfluenza Virus 4 PCR Not Detected (NotDetected); Respiratory Syncytial VirusPCR Not Detected (NotDetected); Rhinovirus/Enterovirus PCR Not Detected (NotDetected)
[2022-04-28] MEDS ORDERED: AZITHROMYCIN 500 MG in DEXTROSE 5% 250 ML IV ONE (12:30)
[2022-04-28] MEDS ORDERED: CARBOHYDRATES FOR HYPOGLYCEMIA PO PRN (15:44)
[2022-04-28] MEDS ORDERED: DEXTROSE 50% 50 ML SYRINGE IV PRN (15:44)
[2022-04-28] MEDS ORDERED: GLUCAGON FOR INJ 1 MG VIAL SQ PRN (15:44)
[2022-04-28] MEDS ORDERED: GLUCOSE 40% GEL 15 GM TUBE PO PRN (15:44)
[2022-04-28] MEDS ORDERED: GLUCOSE 10 TAB/TUBE PO PRN (15:44)
[2022-04-28] MEDS ORDERED: ACETAMINOPHEN 325 MG TAB PO PRN (15:44)
[2022-04-28] MEDS: ALBUT/IPRATROP 3MG/0.5MG NEB 3 ML VIAL NEB SCH ×3 (16:14→22:44)
[2022-04-28] MEDS: LORazepam 1 MG in SYRINGE 0 ML IV PRN ×2 (16:44→21:14)
[2022-04-28] MEDS: NICOTINE 14 MG/24 HR PATCH TD SCH (16:44)
[2022-04-28] MEDS: FLUTICASONE/VILANTEROL 200/25MCG 14 PUFFS/INHALER INH SCH (16:46)
[2022-04-28] MEDS: UMECLIDINIUM BROMIDE 62.5MCG/BLISTER 7 PUFFS/INHALER INH SCH (16:46)
[2022-04-28] MEDS: THIAMINE HCL 100 MG TAB PO SCH (16:46)
[2022-04-28] MEDS: ENOXAPARIN INJ 40 MG/0.4 ML SYR SQ SCH (16:46)
[2022-04-28] MEDS: ASPIRIN 81 MG ECTAB PO SCH (16:46)
[2022-04-28] MEDS: ROSUVASTATIN CALCIUM 10 MG TAB PO SCH (16:47)
[2022-04-28] MEDS: FOLIC ACID 1 MG TAB PO SCH (16:47)
[2022-04-28] MEDS: guaiFENesin 600 MG TABCR PO SCH (16:54)
[2022-04-28] MEDS: INSULIN ASPART PER UNIT SC SCH ×2 (17:40→20:49)
[2022-04-28 19:37] LABS: Appearance Urine Clear (Clear); Bacteria Urine Automated Negative (Negative); Bilirubin Urine Negative (Negative); Blood Urine Trace (Negative); Cast Urine Automated 0 /lpf (0-5); Color Urine Yellow; Epithelial Cell Urine Auto 0-5 /lpf (0-5); Glucose Urine UA Negative (Negative); Ketones Urine Trace (Negative); Leukocyte Esterase Urine Negative (Negative); Nitrite Urine Negative (Negative); Protein Urine Trace (Negative); RBC Urine Automated 0-4 /hpf (0-4); Specific Gravity Urine 1.022 (1.000-1.030); Urobilinogen Urine Negative (Negative); WBC Urine Automated 0 /hpf (0-5); pH Urine 5.5 (4.5-7.5)
[2022-04-28] MEDS: PANTOprazole 40 MG TAB PO SCH (20:48)
[2022-04-28] MEDS: methylPREDNISolone 40 MG in SYRINGE 0 ML IV SCH (20:48)
[2022-04-28] MEDS: LANTUS PER UNIT CHARGE SQ SCH (20:49)
[2022-04-29] MEDS: guaiFENesin 600 MG TABCR PO SCH ×3 (00:23→20:33)
[2022-04-29] MEDS: ALBUT/IPRATROP 3MG/0.5MG NEB 3 ML VIAL NEB SCH ×6 (03:33→23:34)
[2022-04-29] MEDS: methylPREDNISolone 40 MG in SYRINGE 0 ML IV SCH ×3 (04:57→20:32)
[2022-04-29 06:32] LABS: Hematocrit (blood only) 42.1 % (40.1-51.0); Hemoglobin 14.3 g/dl (14.0-18.0); Mean Corpuscular Hemoglobin 30.3 pg (25.0-34.0); Mean Corpuscular Volume 89.2 fL (80.0-100.0); Mean Platelet Volume 10.6 fL (9.4-12.4); Platelet Count 203 K/uL (130-400); RDW Coefficient of Variation 12.4 % (11.5-14.5); RDW Standard Deviation 40.9 fL (36.4-46.3); Red Blood Count 4.72 M/uL (4.63-6.08); White Blood Count 8.72 K/ul (4.8-10.8)
[2022-04-29 06:40] LABS: BUN Creatinine Ratio 17.6 (10-20); Calcium 9.5 mg/dl (8.5-10.1); Creatinine Clr Calc Pharmacy 126.9 ml/min; Est GFR (African American) 123.8 ml/min; Est GFR (Non-African American) 106.8 ml/min; Potassium 4.1 mmol/L (3.5-5.1)
[2022-04-29] MEDS: FLUTICASONE/VILANTEROL 200/25MCG 14 PUFFS/INHALER INH SCH (07:29)
[2022-04-29] MEDS: UMECLIDINIUM BROMIDE 62.5MCG/BLISTER 7 PUFFS/INHALER INH SCH (07:29)
[2022-04-29] MEDS: FOLIC ACID 1 MG TAB PO SCH (07:29)
[2022-04-29] MEDS: ASPIRIN 81 MG ECTAB PO SCH (07:30)
[2022-04-29] MEDS: THIAMINE HCL 100 MG TAB PO SCH (07:30)
[2022-04-29] MEDS: AZITHROMYCIN 250 MG TAB PO SCH (07:30)
[2022-04-29] MEDS: ROSUVASTATIN CALCIUM 10 MG TAB PO SCH (07:30)
[2022-04-29] MEDS: PANTOprazole 40 MG TAB PO SCH ×2 (07:30→20:34)
[2022-04-29] MEDS: METOPROLOL SUCC 50MG EXT REL TAB PO SCH (07:31)
[2022-04-29] MEDS: LANTUS PER UNIT CHARGE SQ SCH ×2 (08:24→20:34)
[2022-04-29] MEDS: INSULIN ASPART PER UNIT SC SCH ×4 (08:24→20:33)
[2022-04-29] MEDS: NICOTINE 14 MG/24 HR PATCH TD SCH (08:28)
[2022-04-29] MEDS ORDERED: predniSONE 20 MG TAB PO SCH (09:00)
[2022-04-29] MEDS: LORazepam 1 MG in SYRINGE 0 ML IV PRN ×2 (09:11→20:49)
[2022-04-29] MEDS: ENOXAPARIN INJ 40 MG/0.4 ML SYR SQ SCH (17:25)
--- NOTE | 2022-04-29 17:25 | Hospitalist Progress Note ---
Date of Service April 29, 2022 Assessment & Plan (1) Acute hypoxemic respiratory failure: Plan: Patient admitted with hypoxemic respiratory failure likely secondary to COPD exacerbation CTA was negative for PE, procal is negative so low suspicion at this time for bacterial infection, Viral Biofire panel was also negative -Will obtain legionella and mycoplasma labs now -Will obtain ABG now to further assess his respiratory status -Monitor on tele and pulse oximetry, wean oxygen as able -Continue 40 mg PO prednisone daily for a total of 5 days treatment starting tomorrow -Continue with DuoNebs q4R along with incentive spirometry and flutter therapy -Continue Spiriva and Dulera -Was given a dose of Cefepime in the ED, will continue with Azithromycin for 5 days for COPD exacerbation with first dose given now -Was able to wean him to 5L via mist mask during my exam, continue to wean as able -AM CBC and BMP (2) Alcohol abuse: Plan: -Currently drinking 8 beers nightly -Last drink was last night at approximately 2030 -Will start AWSS protocol now and monitor for further signs/symptoms of withdrawal -Had successfully quit drinking prior to covid with the use of Vivitrol, would see if he is interested in restarting on discharge (3) Nocturnal oxygen desaturation: Plan: -Patient normally on 1.5 at night via NC. For now continue with as needed supplemental oxygen for acute hypoxia (4) Type 2 diabetes mellitus: Plan: -Normally on metformin, hold for now -Will monitor BSG ACHS, starting with correction factor of 50 and carb ration of 16 -Will start small dose of lantus at 5 units BID for now as he will likely be hyperglycemic while on steroid therapy -Adjust regimen as needed (5) GERD (gastroesophageal reflux disease): Plan: -Does not appear to be on outpatient therapy -Will start Pantoprazole for GI protection while on steroids (6) Hyperlipidemia LDL goal <130: Plan: -Continue Crestor (7) Hypothyroidism (acquired): Plan: -Does not appear to be on therapy outpatient -Will order TSH with reflex T4 is needed (8) Depression: Plan: -Not currently on therapy (9) COPD (chronic obstructive pulmonary disease): Plan: -See COPD exacerbation (10) Tobacco abuse: Plan: -Still smoking 1/2 PPD -Will start nicotine patch, medium dose now -Continue to stress smoking cessation Plan Admission and Anticipated Discharge Date Admission Date: April 28, 2022 Subjective Patient reports feeling slightly better No fevers or chills Review of Systems Review of Systems: No chest pain Shortness of breath improving No abdominal pain nausea vomiting No dysuria hematuria Physical Exam Respiratory: Bilateral air entry fair few scattered rhonchi at bases Gastrointestinal (Abdomen): normal bowel sounds, soft, nontender, no hepatosplenomegaly Musculoskeletal: no cyanosis or clubbing, extremities motor strength 5/5 Results & Data Results & Data ([facility]) Vital Signs (Past 12 Hours) Vital Signs Temp Pulse Resp BP Pulse Ox O2 Del Method O2 Flow Rate 04/29/22 14:48 108 H 18 93 Nasal Cannula 2 04/29/22 11:30 36.8 C 98 H 20 147/59 H 97 04/29/22 11:59 102 H 22 92 Nasal Cannula 3 04/29/22 10:36 Nasal Cannula 3 04/29/22 08:00 36.8 C 112 H 18 151/69 H 97 04/29/22 07:57 107 H 22 95 Nasal Cannula 3 Laboratory Results Abnormal lab results 04/28/22 04/28/22 04/29/22 Range/Units 18:20 20:23 05:26 Chloride 95 L (98-107) mmol/L Carbon Dioxide 35 H (21-32) mmol/L Glucose 132 H (70-99(Fasting)) mg/dl POC Glucose 121 H (70-99) mg/dl Urine Protein Trace H (Negative) Urine Ketones Trace H (Negative) Urine Blood Trace H (Negative) 04/29/22 04/29/22 04/29/22 Range/Units 07:54 11:26 16:50 Chloride (98-107) mmol/L Carbon Dioxide (21-32) mmol/L Glucose (70-99(Fasting)) mg/dl POC Glucose 124 H 155 H 135 H (70-99) mg/dl Urine Protein (Negative) Urine Ketones (Negative) Urine Blood (Negative) Diagnostic Findings Chest X-Ray 04/28/22 07:12 XR chest 1V portable HISTORY: Sepsis COMPARISON: Chest 12/24/2021. FINDINGS: No pneumothorax. No pleural effusions. Stable small linear scarlike density at the left lung base. The heart is normal in size. The right lung is clear. No evidence for pulmonary edema. IMPRESSION: No significant change compared to the prior study. No acute process. ACT 112: Negative or not required by law. Electronically signed by: Suraj Lazo M.D. 04/28/2022 8:32 AM Chest CTA 04/28/22 07:56 CT angio chest PE protocol CT DOSE: 1514.60 mGy.cm HISTORY: 51 years-old Male with sob. Acute shortness of breath TECHNIQUE: Multiple CTA images of the chest were obtained after the intravenous administration of 113 ml Optiray. Coronal and sagittal MIPS were obtained from the axial data set and were submitted for review. All measurements were obtained according to NASCET criteria. A dose lowering technique was utilized adhering to the principles of ALARA. COMPARISON: CTA chest 01/30/2021 FINDINGS: CTA: The heart is normal in size. Mild coronary artery calcifications. Atherosclerosis of the thoracic aorta without aneurysm or dissection. There is patency of the imaged great vessels. Respiratory motion artifact limits evaluation of the lungs and pulmonary arterial tree. No pulmonary emboli are identified. CT CHEST: No dominant thyroid nodule. 1.5 cm right hilar lymph node is stable from prior and likely benign. Borderline enlarged mediastinal lymph nodes include subcarinal adenopathy measuring up to 1.2 cm. No pneumothorax, pleural effusion or overt pulmonary edema. Mild pulmonary emphysema with bronchial wall thickening. Subtle scattered bilateral tree-in-bud nodules. Subsegmental groundglass and consolidative opacities within the right upper lobe. The central airways appear patent. Hepatic steatosis. No acute process of the imaged upper abdomen. Degenerative changes of the shoulders and spine. IMPRESSION: 1. No pulmonary emboli identified. 2. Mild emphysema with bronchial wall thickening suggestive of bronchitis. 3. Multilobar distribution of tree-in-bud nodules with ill-defined intermixed groundglass and patchy consolidative opacities suggestive of an infectious or inflammatory bronchiolitis. 4. Mild mediastinal and hilar lymphadenopathy, likely reactive. 5. Hepatic steatosis. ACT 112: Negative or not required by law. The above report was generated using voice recognition software. It may contain grammatical, syntax or spelling errors. Electronically signed by: Castro Coronel M.D. 04/28/2022 10:30 AM PG Care Time/CCT Total # of Minutes Spent Total Time Spent with Patient: Total time spent is greater than 50% in coordination of care (as documented) at patient's floor/unit and/or counseling patient: Coding Level of Care Code 20729 Subseq Hosp Care Lvl 2 Diagnoses Acute hypoxemic respiratory failure J96.01 Alcohol abuse F10.10 Nocturnal oxygen desaturation G47.34 Type 2 diabetes mellitus E11.9 GERD (gastroesophageal reflux disease) K21.9 Hyperlipidemia LDL goal <130 E78.5 Hypothyroidism (acquired) E03.9 Depression F32.9 COPD (chronic obstructive pulmonary disease) J44.9 COPD type: unspecified COPD Tobacco abuse Z72.0 (1) COPD (chronic obstructive pulmonary disease) COPD type: unspecified COPD Qualified Code(s): J44.9 - Chronic obstructive pulmonary disease, unspecified
[2022-04-30] MEDS: ALBUT/IPRATROP 3MG/0.5MG NEB 3 ML VIAL NEB SCH ×6 (03:11→23:12)
[2022-04-30] MEDS: methylPREDNISolone 40 MG in SYRINGE 0 ML IV SCH ×3 (04:10→21:53)
[2022-04-30 06:24] LABS: Hematocrit (blood only) 44.9 % (40.1-51.0); Hemoglobin 15.2 g/dl (14.0-18.0); Mean Corpuscular Hemoglobin 30.6 pg (25.0-34.0); Mean Corpuscular Hgb Conc 33.9 g/dL (32.0-36.0); Mean Corpuscular Volume 90.5 fL (80.0-100.0); Mean Platelet Volume 10.3 fL (9.4-12.4); Platelet Count 253 K/uL (130-400); RDW Coefficient of Variation 12.4 % (11.5-14.5); RDW Standard Deviation 41.6 fL (36.4-46.3); Red Blood Count 4.96 M/uL (4.63-6.08)
[2022-04-30 07:14] LABS: BUN Creatinine Ratio 25.3 (10-20); Calcium 9.6 mg/dl (8.5-10.1); Creatinine Clr Calc Pharmacy 107.9 ml/min; Est GFR (African American) 115.8 ml/min; Est GFR (Non-African American) 99.9 ml/min; Potassium 4.3 mmol/L (3.5-5.1)
[2022-04-30] MEDS: INSULIN ASPART PER UNIT SC SCH ×4 (08:50→22:19)
[2022-04-30] MEDS: AZITHROMYCIN 250 MG TAB PO SCH (09:04)
[2022-04-30] MEDS: ASPIRIN 81 MG ECTAB PO SCH (09:04)
[2022-04-30] MEDS: FOLIC ACID 1 MG TAB PO SCH (09:04)
[2022-04-30] MEDS: METOPROLOL SUCC 50MG EXT REL TAB PO SCH (09:04)
[2022-04-30] MEDS: guaiFENesin 600 MG TABCR PO SCH ×2 (09:04→21:52)
[2022-04-30] MEDS: PANTOprazole 40 MG TAB PO SCH ×2 (09:05→21:53)
[2022-04-30] MEDS: UMECLIDINIUM BROMIDE 62.5MCG/BLISTER 7 PUFFS/INHALER INH SCH (09:05)
[2022-04-30] MEDS: THIAMINE HCL 100 MG TAB PO SCH (09:05)
[2022-04-30] MEDS: ROSUVASTATIN CALCIUM 10 MG TAB PO SCH (09:05)
[2022-04-30] MEDS: FLUTICASONE/VILANTEROL 200/25MCG 14 PUFFS/INHALER INH SCH (09:06)
[2022-04-30] MEDS: NICOTINE 14 MG/24 HR PATCH TD SCH (09:07)
[2022-04-30] MEDS: LANTUS PER UNIT CHARGE SQ SCH ×2 (09:57→22:19)
[2022-04-30] MEDS: LORazepam 1 MG in SYRINGE 0 ML IV PRN ×2 (10:01→22:19)
[2022-04-30] MEDS: ENOXAPARIN INJ 40 MG/0.4 ML SYR SQ SCH (17:30)
--- NOTE | 2022-04-30 18:12 | Hospitalist Progress Note ---
Date of Service April 30, 2022 Assessment & Plan (1) Acute hypoxemic respiratory failure: Plan: Patient admitted with hypoxemic respiratory failure likely secondary to COPD exacerbation CTA was negative for PE, procal is negative so low suspicion at this time for bacterial infection, Viral Biofire panel was also negative -Will obtain legionella and mycoplasma labs now -Will obtain ABG now to further assess his respiratory status -Monitor on tele and pulse oximetry, wean oxygen as able -Continue 40 mg PO prednisone daily for a total of 5 days treatment starting tomorrow -Continue with DuoNebs q4R along with incentive spirometry and flutter therapy -Continue Spiriva and Dulera -Was given a dose of Cefepime in the ED, will continue with Azithromycin for 5 days for COPD exacerbation with first dose given now -Was able to wean him to 5L via mist mask during my exam, continue to wean as able -AM CBC and BMP (2) Alcohol abuse: Plan: -Currently drinking 8 beers nightly -Last drink was last night at approximately 2030 -Will start AWSS protocol now and monitor for further signs/symptoms of withdrawal -Had successfully quit drinking prior to covid with the use of Vivitrol, would see if he is interested in restarting on discharge (3) Nocturnal oxygen desaturation: Plan: -Patient normally on 1.5 at night via NC. For now continue with as needed supplemental oxygen for acute hypoxia (4) Type 2 diabetes mellitus: Plan: -Normally on metformin, hold for now -Will monitor BSG ACHS, starting with correction factor of 50 and carb ration of 16 -Will start small dose of lantus at 5 units BID for now as he will likely be hyperglycemic while on steroid therapy -Adjust regimen as needed (5) GERD (gastroesophageal reflux disease): Plan: -Does not appear to be on outpatient therapy -Will start Pantoprazole for GI protection while on steroids (6) Hyperlipidemia LDL goal <130: Plan: -Continue Crestor (7) Hypothyroidism (acquired): Plan: -Does not appear to be on therapy outpatient -Will order TSH with reflex T4 is needed (8) Depression: Plan: -Not currently on therapy (9) COPD (chronic obstructive pulmonary disease): Plan: -See COPD exacerbation (10) Tobacco abuse: Plan: -Still smoking 1/2 PPD -Will start nicotine patch, medium dose now -Continue to stress smoking cessation Plan Admission and Anticipated Discharge Date Admission Date: April 28, 2022 Subjective Patient reports feeling slightly better Some anxiety symptoms noted but no evidence of acute withdrawal No fevers or chills Review of Systems Review of Systems: No chest pain Shortness of breath improving No abdominal pain nausea vomiting No dysuria hematuria Physical Exam Physical Exam: Head and ENT examination no JVD no thyroid enlargement Cardiovascular S1-S2 normal no S3 no rubs Lungs bilateral air entry slightly decreased at bases few scattered rhonchi Abdomen soft no rebound tenderness Extremity shows no edema Neuro no focal deficits mild tremors noted Results & Data Results & Data ([facility]) Vital Signs (Past 12 Hours) Vital Signs Temp Pulse Pulse Resp BP Pulse Ox O2 Del Method 04/30/22 16:32 36.6 C 86 19 154/88 H 96 Nasal Cannula 04/30/22 16:32 96 H 04/30/22 06:45 96 H 04/30/22 15:10 84 16 96 Nasal Cannula 04/30/22 08:00 Nasal Cannula 04/30/22 12:37 36.8 C 86 20 146/83 H 94 Nasal Cannula 04/30/22 11:08 85 16 96 Nasal Cannula 04/30/22 08:41 36.8 C 117 H 20 153/100 H 97 Nasal Cannula 04/30/22 07:34 119 H 22 92 Nasal Cannula 04/30/22 06:17 36.6 C 93 H 20 159/97 H 90 Nasal Cannula O2 Flow Rate 04/30/22 16:32 3.0 04/30/22 16:32 04/30/22 06:45 04/30/22 15:10 4 04/30/22 08:00 3 04/30/22 12:37 3.0 04/30/22 11:08 4 04/30/22 08:41 3.0 04/30/22 07:34 3 04/30/22 06:17 3 Laboratory Results Short CBC 04/30/22 Range/Units 05:27 WBC 12.60 H (4.8-10.8) K/ul Hgb 15.2 (14.0-18.0) g/dl Hct 44.9 (40.1-51.0) % Plt Count 253 (130-400) K/uL BMP 04/30/22 05:27 Sodium 137 Potassium 4.3 Chloride 97 L Carbon Dioxide 33 H BUN 22 Creatinine 0.87 Glucose 128 H Calcium 9.6 PG Care Time/CCT Total # of Minutes Spent Total Time Spent with Patient: Total time spent is greater than 50% in coordination of care (as documented) at patient's floor/unit and/or counseling patient: Coding Level of Care Code 21253 Subseq Hosp Care Lvl 2 Diagnoses Acute hypoxemic respiratory failure J96.01 Alcohol abuse F10.10 Nocturnal oxygen desaturation G47.34 Type 2 diabetes mellitus E11.9 GERD (gastroesophageal reflux disease) K21.9 Hyperlipidemia LDL goal <130 E78.5 Hypothyroidism (acquired) E03.9 Depression F32.9 COPD (chronic obstructive pulmonary disease) J44.9 COPD type: unspecified COPD Tobacco abuse Z72.0 (1) COPD (chronic obstructive pulmonary disease) COPD type: unspecified COPD Qualified Code(s): J44.9 - Chronic obstructive pulmonary disease, unspecified
[2022-05-01] MEDS: ALBUT/IPRATROP 3MG/0.5MG NEB 3 ML VIAL NEB SCH ×5 (03:45→20:52)
[2022-05-01 05:24] LABS: Hematocrit (blood only) 44.6 % (40.1-51.0); Mean Corpuscular Hemoglobin 30.5 pg (25.0-34.0); Mean Corpuscular Hgb Conc 33.6 g/dL (32.0-36.0); Mean Corpuscular Volume 90.8 fL (80.0-100.0); Mean Platelet Volume 10.1 fL (9.4-12.4); Platelet Count 243 K/uL (130-400); RDW Coefficient of Variation 12.7 % (11.5-14.5); RDW Standard Deviation 42.1 fL (36.4-46.3); Red Blood Count 4.91 M/uL (4.63-6.08); White Blood Count 11.35 K/ul (4.8-10.8)
[2022-05-01 05:51] LABS: BUN Creatinine Ratio 32.9 (10-20); Calcium 9.2 mg/dl (8.5-10.1); Est GFR (African American) 122.4 ml/min; Est GFR (Non-African American) 105.6 ml/min; Potassium 4.2 mmol/L (3.5-5.1)
[2022-05-01] MEDS: methylPREDNISolone 40 MG in SYRINGE 0 ML IV SCH ×3 (05:58→20:16)
[2022-05-01] MEDS: AZITHROMYCIN 250 MG TAB PO SCH (08:17)
[2022-05-01] MEDS: PANTOprazole 40 MG TAB PO SCH ×2 (08:17→20:16)
[2022-05-01] MEDS: UMECLIDINIUM BROMIDE 62.5MCG/BLISTER 7 PUFFS/INHALER INH SCH (08:17)
[2022-05-01] MEDS: ASPIRIN 81 MG ECTAB PO SCH (08:17)
[2022-05-01] MEDS: FOLIC ACID 1 MG TAB PO SCH (08:17)
[2022-05-01] MEDS: METOPROLOL SUCC 50MG EXT REL TAB PO SCH (08:17)
[2022-05-01] MEDS: FLUTICASONE/VILANTEROL 200/25MCG 14 PUFFS/INHALER INH SCH (08:17)
[2022-05-01] MEDS: guaiFENesin 600 MG TABCR PO SCH ×2 (08:17→20:16)
[2022-05-01] MEDS: THIAMINE HCL 100 MG TAB PO SCH (08:17)
[2022-05-01] MEDS: ROSUVASTATIN CALCIUM 10 MG TAB PO SCH (08:17)
[2022-05-01] MEDS: NICOTINE 14 MG/24 HR PATCH TD SCH (08:18)
[2022-05-01] MEDS: INSULIN ASPART PER UNIT SC SCH ×4 (08:24→21:00)
[2022-05-01] MEDS: LANTUS PER UNIT CHARGE SQ SCH ×2 (08:25→21:00)
--- NOTE | 2022-05-01 14:40 | Hospitalist Progress Note ---
Date of Service May 01, 2022 Assessment & Plan (1) Acute hypoxemic respiratory failure: Plan: Patient admitted with hypoxemic respiratory failure likely secondary to COPD exacerbation CTA was negative for PE, procal is negative so low suspicion at this time for bacterial infection, Patient improving -Continue 40 mg PO prednisone daily for a total of 5 days treatment starting tomorrow -Continue with DuoNebs q4R along with incentive spirometry and flutter therapy -Continue Spiriva and Dulera -Was given a dose of Cefepime in the ED, will continue with Azithromycin for 5 days for COPD exacerbation -AM CBC and BMP (2) Alcohol abuse: Plan: - Patient was drinking about 8 beers on a daily basis Continue AWSS protocol now and monitor for further signs/symptoms of withdrawal -Had successfully quit drinking prior to covid with the use of Vivitrol, would see if he is interested in restarting on discharge (3) Nocturnal oxygen desaturation: Plan: -Patient normally on 1.5 at night via NC. For now continue with as needed supplemental oxygen for acute hypoxia (4) Type 2 diabetes mellitus: Plan: -Normally on metformin, hold for now -Will monitor BSG ACHS, starting with correction factor of 50 and carb ration of 16 -Will start small dose of lantus at 5 units BID for now as he will likely be hyperglycemic while on steroid therapy -Adjust regimen as needed (5) GERD (gastroesophageal reflux disease): Plan: -Does not appear to be on outpatient therapy -Will start Pantoprazole for GI protection while on steroids (6) Hyperlipidemia LDL goal <130: Plan: -Continue Crestor (7) Hypothyroidism (acquired): Plan: -Does not appear to be on therapy outpatient -Will order TSH with reflex T4 is needed (8) Depression: Plan: -Not currently on therapy (9) COPD (chronic obstructive pulmonary disease): Plan: -See COPD exacerbation (10) Tobacco abuse: Plan: -Still smoking 1/2 PPD -Will start nicotine patch, medium dose now -Continue to stress smoking cessation Plan Admission and Anticipated Discharge Date Admission Date: April 28, 2022 Subjective Patient reports feeling slightly better Some anxiety symptoms noted but no evidence of acute withdrawal No fevers or chills Review of Systems Review of Systems: No chest pain Shortness of breath improving No abdominal pain nausea vomiting No dysuria hematuria Physical Exam Physical Exam: Head and ENT examination no JVD no thyroid enlargement Cardiovascular S1-S2 normal no S3 no rubs Lungs bilateral air entry slightly decreased at bases few scattered rhonchi Abdomen soft no rebound tenderness Extremity shows no edema Neuro no focal deficits mild tremors noted Results & Data Results & Data ([facility]) Vital Signs (Past 12 Hours) Vital Signs Temp Pulse Pulse Resp BP Pulse Ox O2 Del Method 05/01/22 12:17 36.4 C L 93 H 18 136/78 92 Nasal Cannula 05/01/22 11:09 77 16 97 Nasal Cannula 05/01/22 08:38 Nasal Cannula 05/01/22 08:38 97 H 05/01/22 07:42 78 18 96 Nasal Cannula 05/01/22 07:27 36.6 C 92 H 20 162/99 H 97 Nasal Cannula 05/01/22 03:55 36.8 C 99 H 23 161/99 H 95 Nasal Cannula 05/01/22 03:45 104 H 18 95 Nasal Cannula O2 Flow Rate 05/01/22 12:17 3.0 05/01/22 11:09 3 05/01/22 08:38 3 05/01/22 08:38 05/01/22 07:42 3 05/01/22 07:27 3.0 05/01/22 03:55 3 05/01/22 03:45 3 PG Care Time/CCT Total # of Minutes Spent Total Time Spent with Patient: Total time spent is greater than 50% in coordination of care (as documented) at patient's floor/unit and/or counseling patient: Coding Level of Care Code 84106 Subseq Hosp Care Lvl 2 Diagnoses Acute hypoxemic respiratory failure J96.01 Alcohol abuse F10.10 Nocturnal oxygen desaturation G47.34 Type 2 diabetes mellitus E11.9 GERD (gastroesophageal reflux disease) K21.9 Hyperlipidemia LDL goal <130 E78.5 Hypothyroidism (acquired) E03.9 Depression F32.9 COPD (chronic obstructive pulmonary disease) J44.9 COPD type: unspecified COPD Tobacco abuse Z72.0 (1) COPD (chronic obstructive pulmonary disease) COPD type: unspecified COPD Qualified Code(s): J44.9 - Chronic obstructive pulmonary disease, unspecified
[2022-05-01] MEDS: ENOXAPARIN INJ 40 MG/0.4 ML SYR SQ SCH ×2 (17:21→17:27)
[2022-05-01] MEDS: LORazepam 1 MG in SYRINGE 0 ML IV PRN (18:00)
[2022-05-02] MEDS: LORazepam 1 MG in SYRINGE 0 ML IV PRN ×2 (00:35→21:29)
[2022-05-02] MEDS: ALBUT/IPRATROP 3MG/0.5MG NEB 3 ML VIAL NEB SCH ×5 (03:05→20:09)
[2022-05-02] MEDS: methylPREDNISolone 40 MG in SYRINGE 0 ML IV SCH ×3 (05:17→20:47)
[2022-05-02 06:13] LABS: Hematocrit (blood only) 49.5 % (40.1-51.0); Hemoglobin 16.6 g/dl (14.0-18.0); Mean Corpuscular Hemoglobin 30.3 pg (25.0-34.0); Mean Corpuscular Hgb Conc 33.5 g/dL (32.0-36.0); Mean Corpuscular Volume 90.3 fL (80.0-100.0); Mean Platelet Volume 9.8 fL (9.4-12.4); Platelet Count 278 K/uL (130-400); RDW Coefficient of Variation 12.5 % (11.5-14.5); RDW Standard Deviation 41.8 fL (36.4-46.3); Red Blood Count 5.48 M/uL (4.63-6.08); White Blood Count 14.57 K/ul (4.8-10.8)
[2022-05-02 06:35] LABS: BUN Creatinine Ratio 23.1 (10-20); Calcium 9.7 mg/dl (8.5-10.1); Creatinine Clr Calc Pharmacy 103.6 ml/min; Est GFR (African American) 112.7 ml/min; Est GFR (Non-African American) 97.2 ml/min; Potassium 4.7 mmol/L (3.5-5.1)
[2022-05-02] MEDS: INSULIN ASPART PER UNIT SC SCH ×4 (08:57→21:28)
[2022-05-02] MEDS: guaiFENesin 600 MG TABCR PO SCH ×2 (08:58→20:47)
[2022-05-02] MEDS: LANTUS PER UNIT CHARGE SQ SCH ×2 (08:58→21:28)
[2022-05-02] MEDS: METOPROLOL SUCC 50MG EXT REL TAB PO SCH (08:59)
[2022-05-02] MEDS: PANTOprazole 40 MG TAB PO SCH ×2 (08:59→20:49)
[2022-05-02] MEDS: NICOTINE 14 MG/24 HR PATCH TD SCH (08:59)
[2022-05-02] MEDS: ASPIRIN 81 MG ECTAB PO SCH (08:59)
[2022-05-02] MEDS: THIAMINE HCL 100 MG TAB PO SCH (08:59)
[2022-05-02] MEDS: UMECLIDINIUM BROMIDE 62.5MCG/BLISTER 7 PUFFS/INHALER INH SCH (09:00)
[2022-05-02] MEDS: FLUTICASONE/VILANTEROL 200/25MCG 14 PUFFS/INHALER INH SCH (09:00)
[2022-05-02] MEDS: AZITHROMYCIN 250 MG TAB PO SCH (09:00)
[2022-05-02] MEDS: ROSUVASTATIN CALCIUM 10 MG TAB PO SCH (09:00)
[2022-05-02] MEDS: FOLIC ACID 1 MG TAB PO SCH (09:02)
--- NOTE | 2022-05-02 13:07 | Hospitalist Progress Note ---
Date of Service May 02, 2022 Assessment & Plan (1) Acute hypoxemic respiratory failure: Plan: Due to COPD exacerbation. Resp viral panel negative. - Legionella and mycoplasma labs pending. - Continue azithromycin - Continue O2 as needed - Taper steroids to oral daily (2) Alcohol abuse: Plan: Currently drinking 8 beers nightly. Last drink was prior to admission at approximately 2030. - Started AWSS protocol now - Had successfully quit drinking prior to covid with the use of Vivitrol, would see if he is interested in restarting on discharge (3) Nocturnal oxygen desaturation: Plan: Patient normally on 1.5 at night via NC. - For now continue with as needed supplemental oxygen for acute hypoxia. (4) Type 2 diabetes mellitus: Plan: Normally on metformin. A1c was 5.8% in 02/2022. - Hold oral meds - Continue Lantus at 5 units BID that was started on admission. - Sliding scale insulin -> Blood sugars are presently stable. (5) GERD (gastroesophageal reflux disease): Plan: Does not appear to be on outpatient therapy. - Started pantoprazole BID for GI protection while on steroids (6) Hyperlipidemia LDL goal <130: Plan: - Continue Crestor (7) Hypothyroidism (acquired): Plan: Does not appear to be on therapy outpatient, though TSH is 2.56. - No inpatient needs (8) Benign essential hypertension: Plan: BP is 140/80. - Continue metoprolol (9) Depression: Plan: Not currently on therapy. No overt symptoms of depression at this time. - Monitor (10) COPD (chronic obstructive pulmonary disease): Plan: -See COPD exacerbation (11) Tobacco abuse: Plan: Still smoking 1/2 PPD. - Offered nicotine patch, but patient presently declining. - Continue to stress smoking cessation Plan DVT ppx: Lovenox 40 mg SQ daily Admission and Anticipated Discharge Date Admission Date: April 28, 2022 Subjective Improving some today, but not entirely. Still with sputum production. Improving shortness of breath, but not back to baseline. Could not get up and walk around room. Reports no fevers/chills, chest pain, abdominal pain, nausea, or vomiting. Physical Exam Constitutional: WD/WN, vitals as above Eyes: EOM intact bilaterally; no conjunctival abnormality ENMT: external ear and nose normal, oropharynx normal Neck: trachea midline, no thyromegaly normal visual inspection Respiratory: + labored breathing and + cough; no respiratory distress Auscultation: + wheezes Cardiovascular: RRR, no murmur, no edema Gastrointestinal (Abdomen): Inspection/Auscultation: abdomen normal to inspection; abdomen not distended Musculoskeletal: no cyanosis or clubbing, extremities motor strength 5/5 Skin: no rashes, warm and dry Neurologic: moves all extremities and awake Psychiatric: Orientation: alert, oriented to person and cooperative Results & Data Results & Data ([facility]) Vital Signs (Past 12 Hours) Vital Signs Temp Pulse Resp BP Pulse Ox O2 Del Method O2 Flow Rate 05/02/22 12:34 36.8 C 87 20 143/82 H 95 Nasal Cannula 3.0 05/02/22 08:00 Nasal Cannula 3 05/02/22 07:45 113 H 18 97 Nasal Cannula 3 05/02/22 06:42 36.7 C 81 18 138/81 96 Nasal Cannula 3 05/02/22 02:08 36.7 C 95 H 18 132/81 95 Nasal Cannula 3 PG Care Time/CCT Total # of Minutes Spent Total Time Spent with Patient: Total time spent is greater than 50% in coordination of care (as documented) at patient's floor/unit and/or counseling patient: Coding Level of Care Code 83560 Subseq Hosp Care Lvl 3 Diagnoses Acute hypoxemic respiratory failure J96.01 Alcohol abuse F10.10 Nocturnal oxygen desaturation G47.34 Type 2 diabetes mellitus E11.9 GERD (gastroesophageal reflux disease) K21.9 Hyperlipidemia LDL goal <130 E78.5 Hypothyroidism (acquired) E03.9 Benign essential hypertension I10 Depression F32.9 COPD (chronic obstructive pulmonary disease) J44.9 COPD type: unspecified COPD Tobacco abuse Z72.0 (1) COPD (chronic obstructive pulmonary disease) COPD type: unspecified COPD Qualified Code(s): J44.9 - Chronic obstructive pulmonary disease, unspecified
[2022-05-02] MEDS: ENOXAPARIN INJ 40 MG/0.4 ML SYR SQ SCH (17:49)
[2022-05-02 18:16] LABS: Mycoplasma pneumoniae Ab, IgG 3.71 (<=0.90)
[2022-05-03] MEDS: methylPREDNISolone 40 MG in SYRINGE 0 ML IV SCH ×2 (04:26→12:28)
[2022-05-03 06:19] LABS: Hematocrit (blood only) 47.6 % (40.1-51.0); Hemoglobin 16.1 g/dl (14.0-18.0); Mean Corpuscular Hemoglobin 30.6 pg (25.0-34.0); Mean Corpuscular Hgb Conc 33.8 g/dL (32.0-36.0); Mean Corpuscular Volume 90.5 fL (80.0-100.0); Mean Platelet Volume 9.6 fL (9.4-12.4); Platelet Count 264 K/uL (130-400); RDW Coefficient of Variation 12.6 % (11.5-14.5); RDW Standard Deviation 41.8 fL (36.4-46.3); Red Blood Count 5.26 M/uL (4.63-6.08); White Blood Count 15.72 K/ul (4.8-10.8)
[2022-05-03 06:43] LABS: Creatinine Clr Calc Pharmacy 112.5 ml/min; Est GFR (African American) 117.5 ml/min; Est GFR (Non-African American) 101.4 ml/min; Potassium 4.5 mmol/L (3.5-5.1)
[2022-05-03] MEDS: ALBUT/IPRATROP 3MG/0.5MG NEB 3 ML VIAL NEB SCH ×3 (07:02→20:16)
[2022-05-03] MEDS: LORazepam 1 MG in SYRINGE 0 ML IV PRN ×2 (08:06→21:39)
[2022-05-03] MEDS: INSULIN ASPART PER UNIT SC SCH ×4 (08:30→20:40)
[2022-05-03] MEDS: LANTUS PER UNIT CHARGE SQ SCH ×2 (08:31→20:40)
[2022-05-03] MEDS: ASPIRIN 81 MG ECTAB PO SCH (08:31)
[2022-05-03] MEDS: guaiFENesin 600 MG TABCR PO SCH ×2 (08:32→20:39)
[2022-05-03] MEDS: FOLIC ACID 1 MG TAB PO SCH (08:32)
[2022-05-03] MEDS: AZITHROMYCIN 250 MG TAB PO SCH (08:32)
[2022-05-03] MEDS: NICOTINE 14 MG/24 HR PATCH TD SCH (08:32)
[2022-05-03] MEDS: PANTOprazole 40 MG TAB PO SCH ×2 (08:33→20:39)
[2022-05-03] MEDS: METOPROLOL SUCC 50MG EXT REL TAB PO SCH (08:33)
[2022-05-03] MEDS: ROSUVASTATIN CALCIUM 10 MG TAB PO SCH (08:33)
[2022-05-03] MEDS: UMECLIDINIUM BROMIDE 62.5MCG/BLISTER 7 PUFFS/INHALER INH SCH (08:37)
[2022-05-03] MEDS: FLUTICASONE/VILANTEROL 200/25MCG 14 PUFFS/INHALER INH SCH (08:37)
[2022-05-03] MEDS: THIAMINE HCL 100 MG TAB PO SCH (09:27)
--- NOTE | 2022-05-03 13:28 | Hospitalist Progress Note ---
Date of Service May 03, 2022 Assessment & Plan (1) Acute hypoxemic respiratory failure: Plan: Due to COPD exacerbation. Resp viral panel negative. - Legionella negative - Mycoplasma pneumonae IgG Ab positive. -> Continue azithromycin - Add ceftriaxone for better typical coverage as well. - Will get sputum culture - Continue O2 as needed - Taper steroids to oral daily (2) Alcohol abuse: Plan: Currently drinking 8 beers nightly. Last drink was prior to admission at approximately 2030. - Started AWSS protocol now - Had successfully quit drinking prior to covid with the use of Vivitrol, would see if he is interested in restarting on discharge (3) Nocturnal oxygen desaturation: Plan: Patient normally on 1.5 at night via NC. - For now continue with as needed supplemental oxygen for acute hypoxia. (4) Type 2 diabetes mellitus: Plan: Normally on metformin. A1c was 5.8% in 02/2022. - Hold oral meds - Continue Lantus at 5 units BID that was started on admission. - Sliding scale insulin -> Blood sugars are presently stable. (5) GERD (gastroesophageal reflux disease): Plan: Does not appear to be on outpatient therapy. - Started pantoprazole BID for GI protection while on steroids (6) Hyperlipidemia LDL goal <130: Plan: - Continue Crestor (7) Hypothyroidism (acquired): Plan: Does not appear to be on therapy outpatient, though TSH is 2.56. - No inpatient needs (8) Benign essential hypertension: Plan: BP is 140/80. - Continue metoprolol (9) Depression: Plan: Not currently on therapy. No overt symptoms of depression at this time. - Monitor (10) COPD (chronic obstructive pulmonary disease): Plan: -See COPD exacerbation (11) Tobacco abuse: Plan: Still smoking 1/2 PPD. - Offered nicotine patch, but patient presently declining. - Continue to stress smoking cessation Plan DVT ppx: Lovenox 40 mg SQ daily Admission and Anticipated Discharge Date Admission Date: April 28, 2022 Subjective Still with large amounts of sputum production. Shortness of breath somewhat improved. Reports no fevers/chills, chest pain, abdominal pain, nausea, or vomiting. Physical Exam Constitutional: WD/WN, vitals as above Eyes: EOM intact bilaterally; no conjunctival abnormality ENMT: external ear and nose normal, oropharynx normal Neck: trachea midline, no thyromegaly normal visual inspection Respiratory: + labored breathing and + cough; no respiratory distress Auscultation: + wheezes Cardiovascular: RRR, no murmur, no edema Gastrointestinal (Abdomen): Inspection/Auscultation: abdomen normal to inspection; abdomen not distended Musculoskeletal: no cyanosis or clubbing, extremities motor strength 5/5 Skin: no rashes, warm and dry Neurologic: moves all extremities and awake Psychiatric: Orientation: alert, oriented to person and cooperative Results & Data Results & Data ([facility]) Vital Signs (Past 12 Hours) Vital Signs Temp Pulse Resp BP Pulse Ox O2 Del Method O2 Flow Rate 05/03/22 11:35 36.3 C L 90 20 129/81 96 Nasal Cannula 2 05/03/22 10:13 Nasal Cannula 3 05/03/22 07:42 36.6 C 81 22 148/75 H 93 Nasal Cannula 3 05/03/22 07:02 77 18 94 Nasal Cannula 3 05/03/22 03:00 36.8 C 88 16 134/74 94 Nasal Cannula 3.5 PG Care Time/CCT Total # of Minutes Spent Total Time Spent with Patient: Total time spent is greater than 50% in coordination of care (as documented) at patient's floor/unit and/or counseling patient: Coding Level of Care Code 15848 Subseq Hosp Care Lvl 3 Diagnoses Acute hypoxemic respiratory failure J96.01 Alcohol abuse F10.10 Nocturnal oxygen desaturation G47.34 Type 2 diabetes mellitus E11.9 GERD (gastroesophageal reflux disease) K21.9 Hyperlipidemia LDL goal <130 E78.5 Hypothyroidism (acquired) E03.9 Benign essential hypertension I10 Depression F32.9 COPD (chronic obstructive pulmonary disease) J44.9 COPD type: unspecified COPD Tobacco abuse Z72.0 (1) COPD (chronic obstructive pulmonary disease) COPD type: unspecified COPD Qualified Code(s): J44.9 - Chronic obstructive pulmonary disease, unspecified
[2022-05-03] MEDS: cefTRIAXone SODIUM 2,000 MG in DEXTROSE 5% 50 ML IV SCH (13:55)
[2022-05-04] MEDS: ALBUT/IPRATROP 3MG/0.5MG NEB 3 ML VIAL NEB SCH ×3 (05:40→19:50)
[2022-05-04 06:14] LABS: Hematocrit (blood only) 46.9 % (40.1-51.0); Hemoglobin 15.5 g/dl (14.0-18.0); Mean Corpuscular Hemoglobin 30.2 pg (25.0-34.0); Mean Corpuscular Volume 91.2 fL (80.0-100.0); Mean Platelet Volume 9.5 fL (9.4-12.4); Platelet Count 195 K/uL (130-400); RDW Coefficient of Variation 12.6 % (11.5-14.5); RDW Standard Deviation 42.5 fL (36.4-46.3); Red Blood Count 5.14 M/uL (4.63-6.08); White Blood Count 13.36 K/ul (4.8-10.8)
[2022-05-04 06:39] LABS: BUN Creatinine Ratio 30.4 (10-20); Calcium 8.6 mg/dl (8.5-10.1); Creatinine Clr Calc Pharmacy 119.6 ml/min; Est GFR (African American) 120.5 ml/min; Potassium 4.1 mmol/L (3.5-5.1)
[2022-05-04] MEDS: INSULIN ASPART PER UNIT SC SCH ×4 (08:33→20:47)
[2022-05-04] MEDS: LANTUS PER UNIT CHARGE SQ SCH ×2 (08:34→20:50)
[2022-05-04] MEDS: FLUTICASONE/VILANTEROL 200/25MCG 14 PUFFS/INHALER INH SCH (08:42)
[2022-05-04] MEDS: ASPIRIN 81 MG ECTAB PO SCH (08:43)
[2022-05-04] MEDS: PANTOprazole 40 MG TAB PO SCH ×2 (08:43→20:46)
[2022-05-04] MEDS: guaiFENesin 600 MG TABCR PO SCH ×2 (08:43→20:46)
[2022-05-04] MEDS: METOPROLOL SUCC 50MG EXT REL TAB PO SCH (08:43)
[2022-05-04] MEDS: NICOTINE 14 MG/24 HR PATCH TD SCH (08:44)
[2022-05-04] MEDS: UMECLIDINIUM BROMIDE 62.5MCG/BLISTER 7 PUFFS/INHALER INH SCH (08:44)
[2022-05-04] MEDS: FOLIC ACID 1 MG TAB PO SCH (08:44)
[2022-05-04] MEDS: THIAMINE HCL 100 MG TAB PO SCH (08:45)
[2022-05-04] MEDS: ROSUVASTATIN CALCIUM 10 MG TAB PO SCH (08:45)
[2022-05-04] MEDS ORDERED: predniSONE 20 MG TAB PO SCH (09:00)
[2022-05-04] MEDS: LORazepam 1 MG in SYRINGE 0 ML IV PRN (09:09)
[2022-05-04] MEDS: cefTRIAXone SODIUM 2,000 MG in DEXTROSE 5% 50 ML IV SCH (13:07)
--- NOTE | 2022-05-04 15:25 | Hospitalist Progress Note ---
Date of Service May 04, 2022 Assessment & Plan (1) Acute hypoxemic respiratory failure: Plan: Due to COPD exacerbation. Resp viral panel negative. - Legionella negative - Mycoplasma pneumonae IgG Ab positive. -> Continue azithromycin - Add ceftriaxone for better typical coverage as well. Sputum cx growing Gram(+) cocci, so possibly some Strep. - Continue O2 as needed - Taper steroids to oral daily (patient wants to take methylprednisolone as he reports he is allergic to prednisone with joint stiffness. (2) Alcohol abuse: Plan: Currently drinking 8 beers nightly. Last drink was prior to admission at approximately 2029. - Started AWSS protocol - No need. - Had successfully quit drinking prior to covid with the use of Vivitrol, would see if he is interested in restarting on discharge (3) Nocturnal oxygen desaturation: Plan: Patient normally on 1.5 at night via NC. - For now continue with as needed supplemental oxygen for acute hypoxia. (4) Type 2 diabetes mellitus: Plan: Normally on metformin. A1c was 5.8% in 02/2022. - Hold oral meds - Continue Lantus at 5 units BID that was started on admission. - Sliding scale insulin -> Blood sugars are presently stable. (5) GERD (gastroesophageal reflux disease): Plan: Does not appear to be on outpatient therapy. - Started pantoprazole BID for GI protection while on steroids (6) Hyperlipidemia LDL goal <130: Plan: - Continue Crestor (7) Hypothyroidism (acquired): Plan: Does not appear to be on therapy outpatient, though TSH is 2.56. - No inpatient needs (8) Benign essential hypertension: Plan: BP is 130/80. - Continue metoprolol (9) Depression: Plan: Not currently on therapy. No overt symptoms of depression at this time. - Monitor (10) COPD (chronic obstructive pulmonary disease): Plan: -See COPD exacerbation (11) Tobacco abuse: Plan: Still smoking 1/2 PPD. - Offered nicotine patch, but patient presently declining. - Continue to stress smoking cessation Plan DVT ppx: Lovenox 40 mg SQ daily Admission and Anticipated Discharge Date Admission Date: April 28, 2022 Subjective Patient improving. Less shortness of breath with moving around. Sputum improving. Reports no fevers/chills, chest pain, abdominal pain, nausea, or v omiting. Physical Exam Constitutional: WD/WN, vitals as above Eyes: EOM intact bilaterally; no conjunctival abnormality ENMT: external ear and nose normal, oropharynx normal Neck: trachea midline, no thyromegaly normal visual inspection Respiratory: + labored breathing and + cough; no respiratory distress Auscultation: + wheezes Cardiovascular: RRR, no murmur, no edema Gastrointestinal (Abdomen): Inspection/Auscultation: abdomen normal to inspection; abdomen not distended Musculoskeletal: no cyanosis or clubbing, extremities motor strength 5/5 Skin: no rashes, warm and dry Neurologic: moves all extremities and awake Psychiatric: Orientation: alert, oriented to person and cooperative Results & Data Results & Data ([facility]) Vital Signs (Past 12 Hours) Vital Signs Temp Pulse Resp BP Pulse Ox O2 Del Method O2 Flow Rate 05/04/22 13:00 93 H 16 95 Nasal Cannula 1 05/04/22 11:44 36.7 C 100 H 22 130/87 92 Nasal Cannula 1 05/04/22 08:05 Nasal Cannula 2 05/04/22 07:56 36.5 C 91 H 20 127/65 92 Nasal Cannula 3 05/04/22 05:40 95 H 16 94 Nasal Cannula 3 PG Care Time/CCT Total # of Minutes Spent Total Time Spent with Patient: Total time spent is greater than 50% in coordination of care (as documented) at patient's floor/unit and/or counseling patient: Coding Level of Care Code 94823 Subseq Hosp Care Lvl 2 Diagnoses Acute hypoxemic respiratory failure J96.01 Alcohol abuse F10.10 Nocturnal oxygen desaturation G47.34 Type 2 diabetes mellitus E11.9 GERD (gastroesophageal reflux disease) K21.9 Hyperlipidemia LDL goal <130 E78.5 Hypothyroidism (acquired) E03.9 Benign essential hypertension I10 Depression F32.9 COPD (chronic obstructive pulmonary disease) J44.9 COPD type: unspecified COPD Tobacco abuse Z72.0 (1) COPD (chronic obstructive pulmonary disease) COPD type: unspecified COPD Qualified Code(s): J44.9 - Chronic obstructive pulmonary disease, unspecified
[2022-05-04] MEDS ORDERED: MELATONIN 3 MG TAB PO PRN (22:00)
[2022-05-05] MEDS: ALBUT/IPRATROP 3MG/0.5MG NEB 3 ML VIAL NEB SCH ×2 (07:27→14:02)
[2022-05-05] MEDS: FLUTICASONE/VILANTEROL 200/25MCG 14 PUFFS/INHALER INH SCH (07:35)
[2022-05-05] MEDS: UMECLIDINIUM BROMIDE 62.5MCG/BLISTER 7 PUFFS/INHALER INH SCH (07:36)
[2022-05-05] MEDS: guaiFENesin 600 MG TABCR PO SCH (07:37)
[2022-05-05] MEDS: NICOTINE 14 MG/24 HR PATCH TD SCH (07:37)
[2022-05-05] MEDS: THIAMINE HCL 100 MG TAB PO SCH (07:38)
[2022-05-05] MEDS: FOLIC ACID 1 MG TAB PO SCH (07:38)
[2022-05-05] MEDS: METOPROLOL SUCC 50MG EXT REL TAB PO SCH (07:38)
[2022-05-05] MEDS: PANTOprazole 40 MG TAB PO SCH (07:38)
[2022-05-05] MEDS: ASPIRIN 81 MG ECTAB PO SCH (07:39)
[2022-05-05] MEDS: ROSUVASTATIN CALCIUM 10 MG TAB PO SCH (07:39)
[2022-05-05] MEDS: INSULIN ASPART PER UNIT SC SCH ×2 (08:58→12:56)
[2022-05-05] MEDS: LANTUS PER UNIT CHARGE SQ SCH (08:59)
--- NOTE | 2022-05-05 11:18 | Discharge Summary ---
Date of Service May 05, 2022 Admission HPI Per Admitting Provider Simon is a 51 year old male with a PMH significant for tobacco abuse, COPD, HTN, dyslipidemia, DM II, Nocturnal oxygen desaturation, Alcohol dependence, GERD, and depression who presented to the [facility] ED on 04/28/22 with a chief complaint of SOB. In the ED the patient was found to be afebrile, hemodynamically stable, but hypoxic at 76% on RA. Labs were remarkable for a leukocytosis of 13.52 with left shift of 10.76, stable renal function and electrolytes, High sensitivity troponin of 12.1, procal of 0.10. Chest xray was negative for acute processes compared to his last chest xray. CTA of the chest showed "No pulmonary emboli identified. Mild emphysema with bronchial wall thickening suggestive of bronchitis.Multilobar distribution of tree-in-bud nodules with ill-defined intermixed groundglass and patchy consolidative opacities suggestive of an infectious or inflammatory bronchiolitis. Mild mediastinal and hilar lymphadenopathy, likely reactive. Hepatic steatosis.". Prior to admission the patient was given 2L NSS bolus, albuterol, levalbuterol, 10 mg IV dexamethasone, and one dose of cefepime. At the time of the exam the patient was lying in bed in mild distress due to his respiratory status, he was noted to be on 9L via mist mask at the start of my exam. The patient was noted to be diaphoretic at the start of my exam as well, of note, his ED was also very warm. He states that his symptoms started on 04/24/22 with increased SOB. He has a chronic smoker's cough but does not typically produce sputum. Recently he has been coughing more frequently and has been producing white/shah sputum. He denies recent fevers and chills, he notes that he was at his friend's house on 04/23 and the friend's daughter had an upper respiratory infection. He does not believe that she has covid, he tested himself on 04/25 and was negative; he has never had a covid vaccine. He has been using his Spiriva and Dulera as prescribed and prn albuterol but he was still feeling significantly SOB at home, especially with exertion. He is still smoking approximately 1/2 pack per day and would be interested in nicotine patches while admitted. He is still drinking about 8 beers every night, he notes withdrawal symptoms when he does stop drinking. His PCP has prescribed him ativan at times when he stops drinking and it helps his symptoms. He had stopped drinking prior to covid with the use of Vivitrol but he started drinking agian during covid when he couldn't see his kids. He denies lightheadedness, dizziness, chest pain, abdominal pain, nausea, vomiting, diarrhea, dysuria, hematuria and lower extremity swelling. I discussed code status with him and he would like to be a full code. Principal Diagnosis Acute exacerbation COPD, acute on chronic respiratory failure, acute bronchitis Discharge Exam General-alert and oriented x3, no fevers, no chills HEENT-head atraumatic and normocephalic, pupils equal and reactive to light, extraocular muscles intact Neck-no lymphadenopathy or thyromegaly, trachea midline Chest-clear to auscultation percussion. No rales wheezing or rhonchi Cardiac-regular rate and rhythm, normal S1 and S2, no murmurs Abdomen-normal bowel sounds, nontender, no hepatosplenomegaly Extremities-no cyanosis, clubbing, or edema Neuro-cranial nerves II through XII intact, motor and sensory function within normal limits, strength symmetrical , no focal deficits Psych-normal affect, normal mood Discharge Data Allergies Allergy/AdvReac Type Severity Reaction Status Date / Time mushroom Allergy Intermediate SWELLING Verified 04/28/22 12:39 OF NECK shellfish derived Allergy Intermediate REDNESS & Verified 04/28/22 12:39 SWELLING OF NECK iodine Allergy Unknown Unknown Verified 04/28/22 12:39 Sulfa (Sulfonamide Allergy Unknown Unknown Verified 04/28/22 12:39 Antibiotics) prednisone AdvReac Unknown Unknown Verified 04/28/22 12:39 seafood Allergy Unknown Unknown Uncoded 04/28/22 12:39 Consultations 04/28/22 11:03 ED Decision to Admit Stat Ordered Studies 04/28/22 07:56 CT angio chest PE protocol Stat Hospital Course (1) Acute hypoxemic respiratory failure: Due to COPD exacerbation. Resp viral panel negative. - Legionella negative - Mycoplasma pneumonae IgG Ab positive. -> Treated with azithromycin and Rocephin . Sputum cx growing Gram(+) cocci, so possibly some Strep. - Continue O2 as needed - Taper steroids at discharge (2) Alcohol abuse: Currently drinking 8 beers nightly. Last drink was prior to admission at approximately 2029. -Treated with AWSS protocol (3) Nocturnal oxygen desaturation: Patient normally on 1.5 at night via NC. No at home. He is now on room air. (4) Type 2 diabetes mellitus: Normally on metformin. Placed on hold while hospitalized. Resume at discharge. A1c was 5.8% in 02/2022. (5) GERD (gastroesophageal reflux disease): Does not appear to be on outpatient therapy. Started pantoprazole BID for GI protection while hospitalized (6) Hyperlipidemia LDL goal <130: - Continue Crestor (7) Hypothyroidism (acquired): Does not appear to be on therapy outpatient, though TSH is 2.56. - No inpatient needs (8) Benign essential hypertension: BP is stable - Continue metoprolol (9) Depression: Not currently on therapy. No overt symptoms of depression at this time. - (10) COPD (chronic obstructive pulmonary disease): -See COPD exacerbation (11) Tobacco abuse: Still smoking 1/2 PPD. - Offered nicotine patch, but patient presently declining. - Continue to stress smoking cessation (12) Acute bronchitis: Treated with intravenous antibiotics while hospitalized. We will continue azithromycin orally for 5 more days at discharge Plan DVT ppx: Lovenox 40 mg SQ daily Disposition: Discharge to home today, May 05 Total Time Total Time Spent Total Time Spent (In Minutes): 35 minutes Discharge Plan Discharge Items Patient Disposition: Home - Self-Care Reason For Visit: SOB Discharge Diagnosis: And exacerbation COPD, acute bronchitis, acute on chronic respiratory failure Activity: Resume your previous activity Non-emergency contact: Primary Care Provider Call non-emergency contact if: you have any medication questions Follow-up/Referrals: Ari Ferrera MD [Primary Care Provider] - Diet: Carb Consistent or DM2 and Heart Healthy Addtl Attending Provider Instructions: Take the prednisone taper and azithromycin as directed. Remain off work until cleared by primary care provider Pending Studies at Discharge: No Stand-Alone Forms: My BISON, Smoking Cessation Medications and DC Order Prescriptions: New azithromycin 500 mg tablet 500 mg PO DAILY 5 Days Qty: 5 0RF prednisone 10 mg tablet See Rx Instructions .ROUTE .COMPLEX Qty: 12 0RF Rx Instructions: 10 mg orally tid for 2 days, then 10mg bid for 2 days, then 10mg daily for 2 days, then stop Continued sumatriptan succinate 50 mg tablet See Rx Instructions PO .COMPLEX Qty: 9 5RF Rx Instructions: take 1 tab at onset of headache; if no relief may repeat 1 tab after at least 2 hrs; max = 4 tabs/24 hr PO Spiriva Respimat 1.25 mcg/actuation mist 2 puff INH DAILY Qty: 4 11RF albuterol sulfate 90 mcg/actuation HFA aerosol inhaler 2 inh inhalation QID Qty: 8.5 5RF Dulera 200-5 mcg/actuation HFA aerosol inhaler 2 puff inhalation BID Qty: 13 11RF Rx Instructions: NOT STARTED YET, FINISHING ADVAIR FIRST THEN START DULERA metoprolol succinate 100 mg tablet extended release 24 hr 100 mg PO DAILY Qty: 90 3RF rosuvastatin 10 mg tablet 10 mg PO DAILY Qty: 30 5RF metformin 500 mg tablet 500 mg PO DAILY Qty: 30 5RF nicotine (polacrilex) [Nicorette] 4 mg gum 4 mg buccal Q2H MDD 5 PRN (Reason: nicotine cravings) Qty: 50 3RF diclofenac sodium 1 % gel 4 g topical QID PRN (Reason: knee pain) Qty: 200 5RF Rx Instructions: apply to single knee, ankle, foot; for foot includes sole/toes/top of foot meloxicam 15 mg tablet 15 mg PO DAILY PRN (Reason: pain) Qty: 30 11RF Rx Instructions: Take it with food. aspirin 81 mg tablet,delayed release (DR/EC) 81 mg PO DAILY Qty: 30 2RF (DME) oxygen tubing See Rx Instructions .Route .MEDSUPPLY Qty: 1 0RF Rx Instructions: As directed Discharge Orders: Discharge Order (Routine); Ordered 05/05/22 Ordered By: Randy Hunter/Other Patient Handouts: Managing Type 2 Diabetes Admission Data Admit Date/Time: 04/28/22 11:09 Attending Provider: Randy Gutiérrez Admit Provider: Loy Lee Primary Care Provider: Ari Ferrera Other Providers: Tahir Morley Coding Level of Care Code D/C DAY MANAGEMENT >30 MINS Diagnoses Acute hypoxemic respiratory failure J96.01 Alcohol abuse F10.10 Nocturnal oxygen desaturation G47.34 Type 2 diabetes mellitus E11.9 GERD (gastroesophageal reflux disease) K21.9 Hyperlipidemia LDL goal <130 E78.5 Hypothyroidism (acquired) E03.9 Benign essential hypertension I10 Depression F32.9 COPD (chronic obstructive pulmonary disease) J44.9 COPD type: unspecified COPD Tobacco abuse Z72.0 Acute bronchitis J20.9
== END 2022-05-05 14:16 | disposition home or self-care (01) | DRG 190 ==
LOC: ED 06:54 → 2S 11:09 → SUATTDRO 11:09 → 2S 15:06 → 4W 04-30 05:48